=== PATIENT | male | born 1960 | race Caucasian/White ===

== ENCOUNTER 2016-04-12 11:10 | Outpatient (CLI) | payer BC, OTHER | END 2016-04-12 11:11 | disposition home or self-care (01) | DX: Z79.899 Other long term (current) drug therapy (principal) ==

== ENCOUNTER 2016-06-27 19:40 | Emergency (ER) | payer BC, OTHER | END 2016-06-27 21:15 | disposition home or self-care (01) | DX: J39.2 Other diseases of pharynx (principal); L53.9 Erythematous condition, unspecified; I10 Essential (primary) hypertension; J45.909 Unspecified asthma, uncomplicated; K21.9 Gastro-esophageal reflux disease without esophagitis ==

== ENCOUNTER 2016-07-26 18:07 | Outpatient (CLI) | payer BC, OTHER ==
[2016-07-26] MEDS ORDERED: IOPAMIDOL-300 100 ML VIAL IVP ONE (19:04)
== END 2016-07-26 18:08 | disposition home or self-care (01) ==
DX: K11.8 Other diseases of salivary glands (principal); R43.8 Other disturbances of smell and taste; L85.3 Xerosis cutis
CPT/HCPCS: 70491; Q9967

== ENCOUNTER 2016-08-30 20:32 | Emergency (ER) | payer BC, OTHER ==
[2016-08-30 20:45] VITALS: BP 162/93
--- NOTE | 2016-08-30 20:58 | ED Physician Documentation ---
PD HPI URI - Stated complaint Stated Complaint: COUGH - Chief complaint Chief Complaint: General - History obtained from History obtained from: Patient - History of Present Illness Timing - onset: Other (4 weeks of nonproductive cough not associated with fevers or shortness of breath. Tried an inhaler without relief. It is keeping him and his up at night. No recent travel.) Review of Systems Constitutional: reports: Reviewed and negative Nose: denies: Rhinorrhea / runny nose, Congestion Throat: reports: Sore throat Cardiac: denies: Chest pain / pressure, Palpitations Respiratory: reports: Cough. denies: Dyspnea, Hemoptysis, Wheezing PD PAST MEDICAL HISTORY - Past Medical History Past Medical History: Yes Cardiovascular: Hypertension Respiratory: Asthma Endocrine/Autoimmune: None GI: GERD : None HEENT: Chronic vision loss Psych: Anxiety Musculoskeletal: Osteoarthritis Derm: None - Past Surgical History Past Surgical History: Yes General: Appendectomy, Hiatal hernia repair - Present Medications Home Medications: Ambulatory Orders Medication Instructions Recorded Confirmed Olmesartan Medoxomil [Benicar] 5 mg PO DAILY 12/15/14 06/27/16 Furosemide [Lasix] 40 mg PO DAILY 03/23/15 06/27/16 Potassium Chloride [Micro-K] 10 meq PO DAILY 03/23/15 06/27/16 Ranitidine HCl [Zantac] 300 mg PO PRN PRN 03/23/15 06/27/16 Benzonatate [Tessalon] 200 mg PO TID PRN #20 capsule 08/30/16 Temazepam 15 - 30 mg PO DAILY 08/30/16 08/30/16 - Allergies Allergies/Adverse Reactions: Allergies Allergy/AdvReac Type Severity Reaction Status Date / Time codeine [Codeine] AdvReac Intermediate Anxiety Verified 08/30/16 20:45 - Social History Does the pt smoke?: No Smoking Status: Never smoker Does the pt drink ETOH?: Yes Does the pt have substance abuse?: No - Immunizations Immunizations are current?: Yes - POLST Patient has POLST: No PD ED PE NORMAL - Vitals Vital signs reviewed: Yes - General General: Alert and oriented X 3, No acute distress - HEENT HEENT: Pharynx benign - Cardiac Cardiac: RRR, No murmur - Respiratory Respiratory: No respiratory distress, Clear bilaterally - Abdomen Abdomen: Non tender - Neuro Neuro: Alert and oriented X 3, Normal speech - Psych Psych: Normal mood, Normal affect Results - Vitals Vitals: Vital Signs - 24 hr 08/30/16 20:41 Temperature 36.6 C Heart Rate 86 Respiratory 18 Rate Blood Pressure 162/93 H O2 Saturation 96 Oxygen O2 Source Room air Departure - Departure Disposition: Home, Self Care Clinical Impression: Cough Condition: Good Record reviewed to determine appropriate education?: Yes Instructions: ED Cough Chronic Cause Unkn Prescriptions: Benzonatate [Tessalon] 200 mg PO TID PRN #20 capsule PRN Reason: Cough Comments: Call your doctor to arrange a follow up appointment. Make the next available appointment. In the interim return anytime if worse or if new symptoms develop. Your blood pressure was elevated today on check in to the emergency department. This does not mean that you have hypertension, it is a common phenomenon to check into the emergency department and have elevated blood pressure. I recommend that you see your primary care physician within the week to have it rechecked when you're feeling better.
[2016-08-30] MEDS ORDERED: guaiFENesin/CODEINE 5 ML UDC PO STA (22:22)
[2016-08-30] MEDS ORDERED: guaiFENesin/CODEINE 5 ML UDC ONE (22:22)
[2016-08-30] MEDS ORDERED: BENZONATATE 100 MG CAPSULE PO STA (22:26)
[2016-08-30] MEDS ORDERED: BENZONATATE 100 MG CAPSULE PO ONE (22:27)
--- NOTE | 2016-08-30 22:49 | XRAY Preliminary Report ---
Exam: XR Chest 2 View PA/LAT IMPRESSION: No acute intrathoracic plain film abnormality. [facility] SITE ID: [id number]
--- NOTE | 2016-08-30 22:51 | XRAY Report ---
EXAM: CHEST RADIOGRAPHY EXAM DATE: 08/30/2016 10:14 PM. CLINICAL HISTORY: Cough. COMPARISON: 03/23/2015. TECHNIQUE: 2 views. FINDINGS: Lungs/Pleura: No focal opacities evident. No pleural effusion. No pneumothorax. Normal volumes. Mediastinum: Heart and mediastinal contours are unremarkable. Other: None. IMPRESSION: No acute intrathoracic plain film abnormality. [facility] Referring Provider Line: [phone] SITE ID: [id number]
[2016-09-04 10:13] LABS: B. PARAPERTUSSIS DNA NOT DETECTED (()); B. PERTUSSIS DNA NOT DETECTED (())
== END 2016-08-30 22:30 | disposition home or self-care (01) ==
LOC: ED 20:32
DX: R05 Cough (principal); I10 Essential (primary) hypertension; J45.909 Unspecified asthma, uncomplicated
CPT/HCPCS: 71020; 87801; 99283; A9270; 87798

== ENCOUNTER 2016-09-19 09:57 | Outpatient (CLI) | payer BC, OTHER | END 2016-09-19 09:58 | disposition home or self-care (01) | LOC: SC 09:57 | PROVIDERS: ATTEND Nurse Practitioner Family | DX: G47.33 Obstructive sleep apnea (adult) (pediatric) (principal) | CPT/HCPCS: 99212; 99214 ==

== ENCOUNTER 2016-11-27 08:40 | Outpatient (CLI) | payer BC, OTHER ==
[2016-11-27 14:35] LABS: BILIRUBIN,TOTAL 1.3 mg/dL (0.2-1.0); BUN - BLOOD UREA NITROGEN 25 mg/dL (6-20); CALCIUM 9.5 mg/dL (8.5-10.3); CARBON DIOXIDE - CO2 31 mmol/L (21-32); CHLORIDE 99 mmol/L (101-111); CHOL/HDL RATIO 4.9 (<5.0); CHOLESTEROL 199 mg/dL; CREATININE 1.7 mg/dL (0.6-1.2); GFR - MDRD 42 (>89); GLUCOSE 102 mg/dL (70-100); HDL CHOLESTEROL 41 mg/dL; LDL/HDL RATIO 3.4 (<3.6); POTASSIUM 3.2 mmol/L (3.5-5.0); SODIUM 139 mmol/L (135-145); TOTAL PROTEIN 6.9 g/dL (6.7-8.2); TRIGLYCERIDES 94 mg/dL; VLDL CHOLESTEROL 19 mg/dL
== END 2016-11-27 08:41 | disposition home or self-care (01) ==
LOC: LAB.WCP 08:40
PROVIDERS: ATTEND Physician Assistant Medical
DX: Z51.81 Encounter for therapeutic drug level monitoring (principal); Z12.5 Encounter for screening for malignant neoplasm of prostate; E78.5 Hyperlipidemia, unspecified
CPT/HCPCS: 36415; 80053; 80061; 84153

== ENCOUNTER 2016-12-12 08:32 | Outpatient (CLI) | payer BC, OTHER ==
[2016-12-12 14:44] LABS: CALCIUM 8.7 mg/dL (8.5-10.3); CREATININE 1.6 mg/dL (0.6-1.2); POTASSIUM 3.2 mmol/L (3.5-5.0)
== END 2016-12-12 08:33 | disposition home or self-care (01) ==
LOC: LAB.WCP 08:32
PROVIDERS: ATTEND Physician Assistant Medical
DX: Z51.81 Encounter for therapeutic drug level monitoring (principal)
CPT/HCPCS: 36415; 80048

== ENCOUNTER 2017-03-01 21:08 | Emergency (ER) | payer BC, OTHER ==
[2017-03-01] MEDS ORDERED: ONDANSETRON 4 MG/2 ML VIAL IVP STA (21:17)
[2017-03-01] MEDS ORDERED: SODIUM CHLORIDE 0.9% 1,000 ML IV ONE (21:17)
[2017-03-01] MEDS ORDERED: ONDANSETRON 4 MG/2 ML VIAL ONE (21:29)
[2017-03-01 21:37] LABS: BASOPHILS % (AUTO) 0.2 %; EOSINOPHILS # (AUTO) 0.1 10^3/uL (0.0-0.7); EOSINOPHILS % (AUTO) 0.5 %; HGB - HEMOGLOBIN 16.9 g/dL (14.0-18.0); LYMPHOCYTES # (AUTO) 0.3 10^3/uL (1.5-3.5); LYMPHOCYTES % (AUTO) 1.7 %; MEAN CORPUSCULAR HEMOGLOBIN 30.9 pg (27.0-31.0); MEAN CORPUSCULAR HGB CONC 34.5 g/dL (32.0-36.0); MEAN CORPUSCULAR VOLUME 89.7 fL (80.0-94.0); MEAN PLATELET VOLUME 7.6 fL (7.4-11.4); MONOCYTES # (AUTO) 0.4 10^3/uL (0.0-1.0); MONOCYTES % (AUTO) 2.2 %; NEUTROPHILS # (AUTO) 15.2 10^3/uL (1.5-6.6); NEUTROPHILS % (AUTO) 95.4 %; NUCLEATED RED BLOOD CELLS AUTO 0.1 /100WBC; RED BLOOD COUNT 5.46 10^6/uL (4.70-6.10); RED CELL DISTRIBUTION WIDTH 14.6 % (12.0-15.0)
[2017-03-01 21:45] LABS: ALBUMIN/GLOBULIN RATIO 1.7 (1.0-2.2); BILIRUBIN,TOTAL 1.4 mg/dL (0.2-1.0); CALCIUM 8.8 mg/dL (8.5-10.3); CREATININE 1.6 mg/dL (0.6-1.2); POTASSIUM 3.2 mmol/L (3.5-5.0); TOTAL PROTEIN 7.3 g/dL (6.7-8.2)
--- NOTE | 2017-03-01 22:14 | ED Physician Documentation ---
PD HPI NVD - Stated complaint Stated Complaint: VOMITING - Chief complaint Chief Complaint: Abd Pain - History obtained from History obtained from: Patient, Family - History of Present Illness Timing - onset: Today Timing - details: Gradual onset, Still present Associated symptoms: No: Fever, Abdominal pain Contributing factors: No: Sick contact, Bad food, Travel, Recent antibiotics Similar symptoms before: No diagnosis Recently seen: Not recently seen - Additonal information Additional information: Patient is a 56 year old male with a history of diabetes who is presenting to the emergency department for nausea and vomiting. patient states that throughout the day he has vomiting multiple times and has had a hard time keeping anything down. Patient denies any sick contacts, recent travel or change in diet. Review of Systems Constitutional: reports: Fever, Myalgias Eyes: denies: Decreased vision, Photophobia Ears: reports: Reviewed and negative Nose: reports: Rhinorrhea / runny nose, Congestion Throat: denies: Sore throat Cardiac: denies: Chest pain / pressure, Palpitations Respiratory: denies: Cough, Wheezing GI: reports: Abdominal Pain, Nausea, Vomiting. denies: Constipation, Diarrhea : reports: Reviewed and negative Skin: reports: Reviewed and negative Musculoskeletal: reports: Reviewed and negative Neurologic: denies: Generalized weakness, Focal weakness, Syncope, Altered mental status Immunocompromised: denies: Immunocompromised PD PAST MEDICAL HISTORY - Past Medical History Cardiovascular: Hypertension Respiratory: Asthma Endocrine/Autoimmune: None GI: GERD : None HEENT: Chronic vision loss Psych: Anxiety Musculoskeletal: Osteoarthritis Derm: None - Past Surgical History Past Surgical History: Yes General: Appendectomy, Hiatal hernia repair - Present Medications Home Medications: Ambulatory Orders Medication Instructions Recorded Confirmed Olmesartan Medoxomil [Benicar] 5 mg PO DAILY 12/15/14 03/01/17 Furosemide [Lasix] 40 mg PO DAILY 03/23/15 03/01/17 Potassium Chloride [Micro-K] 10 meq PO DAILY 03/23/15 03/01/17 Ranitidine HCl [Zantac] 300 mg PO PRN PRN 03/23/15 03/01/17 Benzonatate [Tessalon] 200 mg PO TID PRN #20 capsule 08/30/16 03/01/17 Temazepam 15 - 30 mg PO DAILY 08/30/16 03/01/17 Dicyclomine [Bentyl] 10 mg PO QID #20 capsule 03/01/17 Ondansetron Odt [Zofran] 4 mg TL Q6H PRN #20 tablet 03/01/17 - Allergies Allergies/Adverse Reactions: Allergies Allergy/AdvReac Type Severity Reaction Status Date / Time codeine [Codeine] AdvReac Intermediate Anxiety Verified 03/01/17 21:15 - Social History Does the pt smoke?: No Smoking Status: Never smoker Does the pt drink ETOH?: Yes Does the pt have substance abuse?: No - Immunizations Immunizations are current?: Yes - POLST Patient has POLST: No PD ED PE NORMAL - Vitals Vital signs reviewed: Yes - General General: Alert and oriented X 3, Well developed/nourished - HEENT HEENT: Atraumatic, PERRL - Neck Neck: Supple, no meningeal sign - Cardiac Cardiac: No murmur - Respiratory Respiratory: No respiratory distress, Clear bilaterally - Abdomen Abdomen: Soft - Derm Derm: Normal color, Warm and dry, No rash - Extremities Extremities: No deformity, No edema - Neuro Neuro: Alert and oriented X 3, No motor deficit, No sensory deficit, Normal speech Eye Opening: Spontaneous Motor: Obeys Commands Verbal: Oriented GCS Score: 15 - Psych Psych: Normal mood PD ED PE EXPANDED - HEENT HEENT: Dry mucous membranes - Abdomen Abdomen: Tender to palpation, Generalized/diffuse. No: Rebound, Guarding Results - Vitals Vitals: Vital Signs - 24 hr 03/01/17 03/01/17 21:12 21:53 Temperature 37.2 C 37.0 C Heart Rate 100 95 Respiratory 20 18 Rate Blood Pressure 162/63 H 126/82 H O2 Saturation 96 100 Oxygen O2 Source Room air - Labs Labs: Laboratory Tests 03/01/17 03/01/17 03/01/17 21:25 21:25 21:29 WBC 16.0 H RBC 5.46 Hgb 16.9 Hct 49.0 MCV 89.7 MCH 30.9 MCHC 34.5 RDW 14.6 Plt Count 163 MPV 7.6 Neut # 15.2 H Lymph # 0.3 L [place] # 0.4 Eos # 0.1 Baso # 0.0 Absolute Nucleated RBC 0.01 Nucleated RBC % 0.1 Sodium 138 Potassium 3.2 L Chloride 102 Carbon Dioxide 26 Anion Gap 10.0 BUN 21 H Creatinine 1.6 H Estimated GFR (MDRD) 45 L Glucose 145 H Calcium 8.8 Total Bilirubin 1.4 H AST 34 ALT 48 Alkaline Phosphatase 70 Total Protein 7.3 Albumin 4.6 Globulin 2.7 Albumin/Globulin Ratio 1.7 Lipase 28 Influenza A (Rapid) Negative Influenza B (Rapid) Negative Influenza Types A,B Ag - PD MEDICAL DECISION MAKING - ED course Complexity details: reviewed old records, reviewed results, re-evaluated patient , considered differential, d/w patient, d/w family ED course: patient was seen and examined at bedside. patient was mildly tachycardic. IV access was gained and labs were drawn. patient was treated with ns bolus and zofran. Patient responded well to therapy and was able to tolerate PO without difficulty. Patient and family were given detailed discharge and follow up instructions. patient required no further work up at this time and was stable for discharge with outpatient follow up. Departure - Departure Disposition: 01 Home, Self Care Clinical Impression: Gastroenteritis Condition: Good Instructions: ED Gastroenteritis Viral Follow-Up: Suzan Robeldo PA-C [Primary Care Provider] - Within 3 Days (if symptoms persist ) Prescriptions: Dicyclomine [Bentyl] 10 mg PO QID #20 capsule Ondansetron Odt [Zofran] 4 mg TL Q6H PRN #20 tablet PRN Reason: Nausea / Vomiting Comments: Your symptoms today are likely being caused by a viral illness. It is important that you take the zofran for nausea and stay well hydrated with water and electrolyte solutions. You should follow up with your physician if your symptoms persist for more than then few days. You may return to the emergency department at any time for new, worsening or uncontrollable symptoms.
[2017-03-01 23:05] VITALS: BP 143/88
== END 2017-03-01 23:09 | disposition home or self-care (01) ==
LOC: ED 21:08
DX: K52.9 Noninfective gastroenteritis and colitis, unspecified (principal); R00.0 Tachycardia, unspecified; E11.9 Type 2 diabetes mellitus without complications; I10 Essential (primary) hypertension; J45.909 Unspecified asthma, uncomplicated; K21.9 Gastro-esophageal reflux disease without esophagitis; M19.90 Unspecified osteoarthritis, unspecified site
CPT/HCPCS: 36415; 80053; 83690; 85025; 87275; 87276; 96361; 96374; 99283; 99284

== ENCOUNTER 2017-03-11 09:55 | Outpatient (CLI) | payer BC, OTHER ==
[2017-03-11 13:01] LABS: BASOPHILS # (AUTO) 0.1 10^3/uL (0.0-0.1); BASOPHILS % (AUTO) 0.6 %; EOSINOPHILS # (AUTO) 0.2 10^3/uL (0.0-0.7); EOSINOPHILS % (AUTO) 1.6 %; HCT - HEMATOCRIT 43.9 % (42.0-52.0); HGB - HEMOGLOBIN 15.6 g/dL (14.0-18.0); LYMPHOCYTES # (AUTO) 1.6 10^3/uL (1.5-3.5); LYMPHOCYTES % (AUTO) 15.6 %; MEAN CORPUSCULAR HEMOGLOBIN 31.5 pg (27.0-31.0); MEAN CORPUSCULAR HGB CONC 35.5 g/dL (32.0-36.0); MEAN CORPUSCULAR VOLUME 88.7 fL (80.0-94.0); MEAN PLATELET VOLUME 7.8 fL (7.4-11.4); MONOCYTES # (AUTO) 0.7 10^3/uL (0.0-1.0); MONOCYTES % (AUTO) 6.3 %; NEUTROPHILS % (AUTO) 75.9 %; NUCLEATED RED BLOOD CELLS AUTO 0.2 /100WBC; RED BLOOD COUNT 4.94 10^6/uL (4.70-6.10); RED CELL DISTRIBUTION WIDTH 14.2 % (12.0-15.0); UNCORRECTED WHITE BLOOD COUNT 10.5 x10^3/uL; WHITE BLOOD COUNT 10.5 x10^3/uL (4.8-10.8)
[2017-03-11 13:31] LABS: ALBUMIN/GLOBULIN RATIO 1.7 (1.0-2.2); BILIRUBIN,TOTAL 0.8 mg/dL (0.2-1.0); BUN - BLOOD UREA NITROGEN 20 mg/dL (6-20); CALCIUM 8.9 mg/dL (8.5-10.3); CARBON DIOXIDE - CO2 27 mmol/L (21-32); CHLORIDE 101 mmol/L (101-111); CHOL/HDL RATIO 4.2 (<5.0); CHOLESTEROL 165 mg/dL; CREATININE 1.6 mg/dL (0.6-1.2); GFR - MDRD 45 (>89); GLUCOSE 111 mg/dL (70-100); HDL CHOLESTEROL 39 mg/dL; LDL/HDL RATIO 2.7 (<3.6); MAGNESIUM 2.1 mg/dL (1.7-2.8); POTASSIUM 3.6 mmol/L (3.5-5.0); SODIUM 138 mmol/L (135-145); TOTAL PROTEIN 7.1 g/dL (6.7-8.2); TRIGLYCERIDES 103 mg/dL; URIC ACID 9.7 mg/dL (2.6-7.2); VLDL CHOLESTEROL 21 mg/dL
== END 2017-03-11 09:56 | disposition home or self-care (01) ==
LOC: LAB.WCP 09:55
PROVIDERS: ATTEND Physician Assistant Medical
DX: Z51.81 Encounter for therapeutic drug level monitoring (principal); E78.5 Hyperlipidemia, unspecified; E04.1 Nontoxic single thyroid nodule; I10 Essential (primary) hypertension; M25.50 Pain in unspecified joint; D72.829 Elevated white blood cell count, unspecified
CPT/HCPCS: 36415; 80053; 80061; 83735; 84443; 84550; 85025; 85651

== ENCOUNTER 2017-05-14 09:00 | Outpatient (CLI) | payer OTHER ==
[2017-05-14 13:04] LABS: CALCIUM 9.4 mg/dL (8.5-10.3); CREATININE 1.5 mg/dL (0.6-1.2); URIC ACID 7.5 mg/dL (2.6-7.2)
== END 2017-05-14 09:01 ==
LOC: LAB.WCP 09:00
PROVIDERS: ATTEND Physician Assistant Medical
DX: E79.0 Hyperuricemia without signs of inflammatory arthritis and tophaceous disease (principal); Z51.81 Encounter for therapeutic drug level monitoring; Z79.899 Other long term (current) drug therapy
CPT/HCPCS: 36415; 80048; 84550

== ENCOUNTER 2017-05-17 13:10 | Inpatient (IN) | payer OTHER ==
[2017-05-17] MEDS ORDERED: ACETAMINOPHEN 325 MG TABLET PO STA (13:14)
[2017-05-17] MEDS ORDERED: SODIUM CHLORIDE 0.9% 1,000 ML IV ONE (13:14)
--- NOTE | 2017-05-17 13:15 | ED Physician Documentation ---
History of Present Illness - Stated complaint Stated Complaint: CHOKING - Chief complaint Chief Complaint: Resp - History obtained from History obtained from: Patient - History of Present Illness Timing: Today (Starting in the last few hours he has had severe uncontrollable shaking associated with coughing and feeling like he is choking on his own mucus. Associated with shortness of breath but no pain anywhere, specifically no chest or abdominal pain. No recent illness or sick contacts.) Review of Systems Constitutional: reports: Chills, Fatigue, Sweats Nose: denies: Rhinorrhea / runny nose Respiratory: reports: Dyspnea, Cough GI: denies: Abdominal Pain, Vomiting, Diarrhea PD PAST MEDICAL HISTORY - Past Medical History Cardiovascular: Hypertension Respiratory: Asthma Endocrine/Autoimmune: None GI: GERD : None HEENT: Chronic vision loss Psych: Anxiety Musculoskeletal: Osteoarthritis Derm: None - Past Surgical History Past Surgical History: Yes General: Appendectomy, Hiatal hernia repair - Present Medications Home Medications: Ambulatory Orders Medication Instructions Recorded Confirmed Olmesartan Medoxomil [Benicar] 5 mg PO DAILY 12/15/14 03/01/17 Furosemide [Lasix] 40 mg PO DAILY 03/23/15 03/01/17 Potassium Chloride [Micro-K] 10 meq PO DAILY 03/23/15 03/01/17 Ranitidine HCl [Zantac] 300 mg PO PRN PRN 03/23/15 03/01/17 Benzonatate [Tessalon] 200 mg PO TID PRN #20 capsule 08/30/16 03/01/17 Temazepam 15 - 30 mg PO DAILY 08/30/16 03/01/17 Dicyclomine [Bentyl] 10 mg PO QID #20 capsule 03/01/17 Ondansetron Odt [Zofran] 4 mg TL Q6H PRN #20 tablet 03/01/17 - Allergies Allergies/Adverse Reactions: Allergies Allergy/AdvReac Type Severity Reaction Status Date / Time codeine [Codeine] AdvReac Intermediate Anxiety Verified 05/17/17 13:14 - Social History Does the pt smoke?: No Smoking Status: Never smoker Does the pt drink ETOH?: Yes Does the pt have substance abuse?: No - Immunizations Immunizations are current?: Yes - POLST Patient has POLST: No PD ED PE NORMAL - Vitals Vital signs reviewed: Yes - General General: Alert and oriented X 3, Other (Actively Rigoring) - HEENT HEENT: PERRL, EOMI, Pharynx benign - Neck Neck: Supple, no meningeal sign, No bony TTP - Cardiac Cardiac: No murmur, Other (Tachycardic) - Respiratory Respiratory: Other (Tachypneic, diminished throughout but no focal findings) - Abdomen Abdomen: Soft, Non tender - Back Back: No CVA TTP, No spinal TTP - Derm Derm: Normal color, Warm and dry - Extremities Extremities: No edema, No calf tenderness / cord - Neuro Neuro: Alert and oriented X 3, Normal speech Results - Vitals Vitals: Vital Signs - 24 hr 05/17/17 05/17/17 13:11 14:16 Temperature 37.8 C H 37.0 C Heart Rate 128 H 126 H Respiratory 28 H 24 Rate Blood Pressure 161/113 H 137/101 H O2 Saturation 100 96 Oxygen O2 Source Room air - EKG (time done) 1316 Rate: Rate (enter#) (120) Rhythm: Sinus tachycardia, LAE Intervals: Normal PA QRS: LVH Ischemia: Non specific changes. No: ST elevation c/w ischemia Computer interpretation: Agree with computer - Labs Labs: Laboratory Tests 05/17/17 05/17/17 05/17/17 13:20 13:20 13:20 WBC 25.0 H RBC 5.48 Hgb 17.2 Hct 48.4 MCV 88.3 MCH 31.4 H MCHC 35.6 RDW 14.5 Plt Count 217 MPV 7.7 Neut # 22.5 H Lymph # 1.3 L [place] # 0.9 Eos # 0.1 Baso # 0.1 Absolute Nucleated RBC 0.02 Nucleated RBC % 0.1 Manual Slide Review Indicated RBC Morph Micro Appear 1+ POLYCHROMASIA PT 12.2 INR 1.1 Sodium 141 Potassium 2.8 L Chloride 96 L Carbon Dioxide 28 Anion Gap 17.0 H BUN 28 H Creatinine 1.9 H Estimated GFR (MDRD) 37 L Glucose 95 Lactic Acid Calcium 9.4 Total Bilirubin 2.0 H AST 42 ALT 46 Alkaline Phosphatase 73 Troponin I Total Protein 7.7 Albumin 5.0 Globulin 2.7 Albumin/Globulin Ratio 1.9 Lipase 20 L Urine Color Urine Clarity Urine pH Ur Specific [place] Urine Protein Urine Glucose (UA) Urine Ketones Urine Occult Blood Urine Nitrite Urine Bilirubin Urine Urobilinogen Ur Leukocyte Esterase Ur Microscopic Review Urine Culture Comments Influenza A (Rapid) Influenza B (Rapid) Influenza Types A,B Ag 05/17/17 05/17/17 05/17/17 13:20 13:20 13:48 WBC RBC Hgb Hct MCV MCH MCHC RDW Plt Count MPV Neut # Lymph # [place] # Eos # Baso # Absolute Nucleated RBC Nucleated RBC % Manual Slide Review RBC Morph Micro Appear PT INR Sodium Potassium Chloride Carbon Dioxide Anion Gap BUN Creatinine Estimated GFR (MDRD) Glucose Lactic Acid 1.8 Calcium Total Bilirubin AST ALT Alkaline Phosphatase Troponin I < 0.04 Total Protein Albumin Globulin Albumin/Globulin Ratio Lipase Urine Color Urine Clarity Urine pH Ur Specific [place] Urine Protein Urine Glucose (UA) Urine Ketones Urine Occult Blood Urine Nitrite Urine Bilirubin Urine Urobilinogen Ur Leukocyte Esterase Ur Microscopic Review Urine Culture Comments Influenza A (Rapid) Negative Influenza B (Rapid) Negative Influenza Types A,B Ag - 05/17/17 14:10 WBC RBC Hgb Hct MCV MCH MCHC RDW Plt Count MPV Neut # Lymph # [place] # Eos # Baso # Absolute Nucleated RBC Nucleated RBC % Manual Slide Review RBC Morph Micro Appear PT INR Sodium Potassium Chloride Carbon Dioxide Anion Gap BUN Creatinine Estimated GFR (MDRD) Glucose Lactic Acid Calcium Total Bilirubin AST ALT Alkaline Phosphatase Troponin I Total Protein Albumin Globulin Albumin/Globulin Ratio Lipase Urine Color YELLOW Urine Clarity CLEAR Urine pH 6.0 Ur Specific [place] 1.020 Urine Protein 100 H Urine Glucose (UA) NEGATIVE Urine Ketones NEGATIVE Urine Occult Blood TRACE-LYSE Urine Nitrite NEGATIVE Urine Bilirubin NEGATIVE Urine Urobilinogen 0.2 (NORMAL) Ur Leukocyte Esterase NEGATIVE Ur Microscopic Review INDICATED Urine Culture Comments Not Reportable Influenza A (Rapid) Influenza B (Rapid) Influenza Types A,B Ag - Rads (name of study) 2v chest Radiology: EMP read contemporaneously (faint RML density) PD MEDICAL DECISION MAKING - ED course ED course: 57-year-old gentleman presents with very acute Reiger's, fever, tachycardia but no hypotension. The history is most consistent with pneumonia, there is an early right middle lobe infiltrate on chest x-ray. He was cultured up, given Rocephin and Levaquin given underlying lung disease. Spoke with Dr Decker for admit at 1435 Departure - Departure Disposition: 66 [facility] DC/Xfer Clinical Impression: Pneumonia Qualifiers: Pneumonia type: due to unspecified organism Laterality: right Lung location: middle lobe of lung Qualified Code(s): J18.1 - Lobar pneumonia, unspecified organism Sepsis Qualifiers: Sepsis type: sepsis due to unspecified organism Qualified Code(s): A41.9 - Sepsis, unspecified organism Condition: Serious
[2017-05-17 13:34] LABS: BASOPHILS # (AUTO) 0.1 10^3/uL (0.0-0.1); BASOPHILS % (AUTO) 0.5 %; EOSINOPHILS # (AUTO) 0.1 10^3/uL (0.0-0.7); EOSINOPHILS % (AUTO) 0.5 %; HGB - HEMOGLOBIN 17.2 g/dL (14.0-18.0); LYMPHOCYTES # (AUTO) 1.3 10^3/uL (1.5-3.5); LYMPHOCYTES % (AUTO) 5.3 %; MEAN CORPUSCULAR HEMOGLOBIN 31.4 pg (27.0-31.0); MEAN CORPUSCULAR HGB CONC 35.6 g/dL (32.0-36.0); MEAN CORPUSCULAR VOLUME 88.3 fL (80.0-94.0); MEAN PLATELET VOLUME 7.7 fL (7.4-11.4); MONOCYTES # (AUTO) 0.9 10^3/uL (0.0-1.0); MONOCYTES % (AUTO) 3.6 %; NEUTROPHILS # (AUTO) 22.5 10^3/uL (1.5-6.6); NEUTROPHILS % (AUTO) 90.1 %; PLT - PLATELET COUNT 217 10^3/uL (130-450); RED BLOOD COUNT 5.48 10^6/uL (4.70-6.10); RED CELL DISTRIBUTION WIDTH 14.5 % (12.0-15.0)
[2017-05-17 13:38] LABS: INR 1.1 (0.8-1.2); PT - PROTHROMBIN TIME 12.2 secs (9.9-12.6)
[2017-05-17 13:46] LABS: ALBUMIN/GLOBULIN RATIO 1.9 (1.0-2.2); CALCIUM 9.4 mg/dL (8.5-10.3); CREATININE 1.9 mg/dL (0.6-1.2); TOTAL PROTEIN 7.7 g/dL (6.7-8.2)
[2017-05-17] MEDS ORDERED: POTASSIUM CHLOR 10 MEQ/100 ML 10 MEQ/100 ML BAG IV ONE (13:52)
[2017-05-17] MEDS ORDERED: cefTRIAXone 2 GM in SODIUM CHLORIDE 0.9% MINIBAG 100 ML IV STA (14:21)
[2017-05-17] MEDS ORDERED: levoFLOXacin 750 MG/150 ML 750 MG/150 ML BAG IV ONE (14:21)
[2017-05-17] MEDS ORDERED: LACTATED RINGERS 1,000 ML IV STA (14:22)
--- NOTE | 2017-05-17 14:24 | XRAY Report ---
EXAM: CHEST RADIOGRAPHY EXAM DATE: 05/17/2017 02:08 PM. CLINICAL HISTORY: Cough, rigors. COMPARISON: Chest x-ray 08/30/2016. TECHNIQUE: 2 views. FINDINGS: Lungs/Pleura: No pleural effusion or pneumothorax. Faint linear areas right midlung on the PA view wh ich is not well-seen on the lateral view. Mediastinum: Heart and mediastinal contours are unremarkable. Other: None. IMPRESSION: Faint right midlung densities on the PA view, probably diskoid atelectasis. [facility] Referring Provider Line: [phone] SITE ID: [id number]
[2017-05-17 14:31] LABS: BILIRUBIN,URINE NEGATIVE (NEGATIVE); GLUCOSE, URINE (UA) NEGATIVE (NEGATIVE); KETONES,URINE (UA) NEGATIVE (NEGATIVE); LEUKOCYTE ESTERASE, URINE NEGATIVE (NEGATIVE); NITRITE,URINE NEGATIVE (NEGATIVE); OCCULT BLOOD,URINE TRACE-LYSE (NEGATIVE); PROTEIN,URINE 100 mg/dL (NEGATIVE); UROBILINOGEN,URINE 0.2 (NORMAL) E.U./dL (NORMAL)
[2017-05-17 14:33] LABS: CLARITY,URINE CLEAR (CLEAR)
[2017-05-17 14:48] LABS: RBC,URINE 0-5 /HPF (0-5)
[2017-05-17 14:49] LABS: BACTERIA,URINE None Seen /HPF (None Seen); CASTS, URINE 3-5 Hyaline Casts /LPF; SQUAMOUS EPITHELIAL CELL,UR NONE SEEN (<= Few)
[2017-05-17] MEDS ORDERED: HYDROcod/ACETAM 5/325 MG TABLET PO PRN (14:52)
[2017-05-17] MEDS ORDERED: ACETAMINOPHEN 325 MG TABLET PO PRN (14:52)
[2017-05-17] MEDS ORDERED: TEMAZEPAM 15 MG CAPSULE PO PRN (14:52)
[2017-05-17] MEDS ORDERED: ONDANSETRON 4 MG/2 ML VIAL IVP PRN (14:52)
--- NOTE | 2017-05-17 16:25 | HISTORY & PHYSICAL EXAMINATION ---
Chief Complaint - Chief Complaint Chief Complaint: shortness of breath, chills, sweats, fatigue History of Present Illness - Admitted From Admitted From:: ED - History Obtained From Records Reviewed: yes History obtained from: chart review, patient Exam Limitations: none - History of Present Illness HPI Comment/Other: Etienne Aguiar is a morbidly obese 57-year old white male with a past medical history of obesity, obstructive sleep apnea, chronic CPAP use, pneumonia, bilateral leg edema, asthma, hypertension, GERD, chronic vision loss, chronic hearing loss, anxiety, osteoarthritis, appendectomy and hiatal hernia repair. He was driven to the ED today by his after they had been to the [employer] this morning. He participated at first, but soon had to go to the car to rest as he was "just too tired out and freezing". When his was finished in the [employer], she came back to the car and didn't think he look well, so they came straight to the ED. Once in the ED imaging showed a possible right mid-lung pneumonia described as faint linear areas, an elevated WBC count, temp max of 38.0, tachycardic with a heart rate in the 130's, hypertensive with a blood pressure of 161/113, and profound rigors and chills. Labratory testing revealed hypokalemia with a potassium low at 2.8, BUN and Creatinine elevated at 28 and 1.9, and an elevated bilirubin. He has had associated symptoms such as anorexia, body aches, difficulty walking, increased bilateral lower leg edema , and a dry cough. Patient denies chest pain or pressure, abdominal pain, sinus pressure or ear pain, nausea or vomiting or insomnia. Patient will be admitted to inpatient for further treatment of pneumonia with IVFs, IV antibiotics and symptom control. History - Past Medical History Cardiovascular: reports: Hypertension Respiratory: reports: Asthma, Sleep apnea, CPAP use Neuro: reports: None. denies: CVA, TIA Endocrine/Autoimmune: reports: None. denies: Type 1 diabetes, Type 2 diabetes, HyPERthyroidism GI: reports: GERD, Hiatal hernia (surgical repair) [employer]: reports: None : reports: Nocturia HEENT: reports: Chronic vision loss, Chronic sinusitis Psych: reports: Anxiety, Eating disorder Musculoskeletal: reports: Osteoarthritis Derm: reports: None MRSA Hx?: No - Past Surgical History General: reports: Appendectomy, Hiatal hernia repair - Family & Social History Family History: Mother: Alive and Well, Alzheimer's Disease, Father: Alive and Well, Sister: Alive and Well Family History Comment/Other: Patient's biological family are all alive and well , except his mother has dementia, and his father has osteoarthritis with multiple surgeries in knees and hips. No family history of DM, or cancers. Living arrangement: At home Living Situation: With spouse/s.o. 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 His stays home. He denies tobacco, alcohol, or illicit drug use. He wishes to be a full code. - Substance History Use: Uses substance without health or social issues: NONE Abuse: Recurrent use of substance despite neg consequences: NONE Dependence: Experiences withdrawal or developed tolerances: NONE - POLST Patient has POLST: No POLST Status: Full Code Meds/Allgy - Home Medications Home Medications: Ambulatory Orders Medication Instructions Recorded Confirmed Furosemide [Lasix] 60 mg PO DAILY 03/23/15 05/17/17 Potassium Chloride [Micro-K] 20 meq PO DAILY 03/23/15 05/17/17 Ranitidine HCl [Zantac] 300 mg PO DAILY 03/23/15 05/17/17 Temazepam 15 - 30 mg PO QPM PRN 08/30/16 05/17/17 Fluticasone/Salmeterol [Advair 1 puffs INH BID 05/17/17 05/17/17 250-50 Diskus] Montelukast [Singulair] 10 mg PO QPM 05/17/17 05/17/17 amLODIPine [Norvasc] 5 mg PO DAILY 05/17/17 05/17/17 cloNIDine HCl [Clonidine HCl] 0.1 mg PO BID 05/17/17 05/17/17 hydroCHLOROthiazide 25 mg PO DAILY 05/17/17 05/17/17 [Hydrochlorothiazide] - Allergies Allergies/Adverse Reactions: Allergies Allergy/AdvReac Type Severity Reaction Status Date / Time codeine [Codeine] AdvReac Intermediate Anxiety Verified 05/17/17 13:14 Review of Systems - Constitutional Constitutional: reports: Fatigue, Fever, Chills, Malaise, Weakness, Poor appetite, Diaphoresis, Night sweats - Eyes Eyes: reports: Irritation, Blurred vision, Vision loss, Corrective lenses - Ears, Nose & Throat Ears, Nose & Throat: reports: Ear pain, Hearing loss, Nasal discharge, Nasal congestion, Postnasal drainage, Dental decay - Cardiovascular Cariovascular: reports: Edema, Exertional dyspnea, Decr. exercise tolerance, Orthopnea - Respiratory Respiratory: reports: Cough, Wheezing, Orthopnea, SOB at rest, SOB with exertion - Gastrointestinal Gastrointestinal: reports: Reflux/heartburn, Poor appetite. denies: Abdominal pain, Abdominal distention, Constipation, Diarrhea, Bloody stools - Genitourinary Genitourinary: reports: Nocturia. denies: Dysuria, Frequency, Urgency, Hematuria - Musculoskeletal Musculoskeletal: reports: Muscle aches, Muscle weakness, Joint swelling. denies : Muscle pain, Back pain - Integumentary Integumentary: reports: Dryness. denies: Rash, Pruritis, Lesions - Neurological Neurological: reports: General weakness. denies: Focal weakness, Headache, Dizziness, Seizures - Psychiatric Psychiatric: denies: Depression, Suicidal - Endocrine Endocrine: denies: Polyuria, Polydypsia - Hematologic/Lymphatic Hematologic/Lymphatic: denies: Anemia, Bruising, Petechiae - All Other Systems All Other Systems: reports: Reviewed and negative Exam - Vital Signs Reviewed Vital Signs: Yes Vital Signs: Vital Signs x48h Temp Pulse Resp BP Pulse Ox 05/17/17 16:00 38.0 C H 113 H 22 140/92 H 97 - Physical Exam General Appearance: positive: Alert, Moderate distress, Anxious Eyes Bilateral: positive: PERRL, Other (bilateral lid inflammation) ENT: positive: Pharyngeal erythema, Dry mucous membranes Neck: positive: Thyroid nml, No JVD, Lymphadenopathy (R), Lymphadenopathy (L) Respiratory: positive: Chest non-tender, No respiratory distress, Wheezes, Other (mild bilateral lobe crackles.) Cardiovascular: positive: Regular rate & rhythm, Tachycardia, Systolic murmur, Decreased pulse(s) Peripheral Pulses: positive: 1+, 0 (faint) Abdomen: positive: Non-tender, Abnml bowel sounds, Other (obese, firm) Back: positive: Nml inspection Skin: positive: No rash, Warm, Diaphoresis Extremities: positive: Non-tender, Pedal edema (gross, pitting edema) Neurologic/Psychiatric: positive: Oriented x3, CN's nml (2-12), Motor nml, Sensation nml, Depressed mood/affect Reflexes: Bicep (R): 3+, Bicep (L): 3+ Conclusion/Plan - Problem List (1) Fever Conclusion/Plan: Patient has had a temp max of 38.0 in the ED, during admission exam, patient felt as if another one was coming on. He first noticed chills, sweats ~48 hours ago at home. When the patient arrived in the ED, rigors were also noted. Plan: Treat with tylenol, IVFs. (2) Pneumonia Conclusion/Plan: Imaging obtained in the ED showed a possible right mid-lung pneumonia described as faint linear areas, an elevated WBC count, temp max of 38.0, tachycardic with a heart rate in the 130's, hypertensive with a blood pressure of 161/113, and profound rigors and chills. Patient admits to having a history of pneumonia and can remember at least 3 other times in his life that he has had this, although this time seems to be the worst. Plan: Treat with IVFs given his AUGUSTINE, IV antibiotics, blood cultures pending, and close monitoring. Qualifiers: Pneumonia type: due to unspecified organism Laterality: right Lung location: middle lobe of lung Qualified Code(s): J18.1 - Lobar pneumonia, unspecified organism (3) Cough Conclusion/Plan: Patient claims to have a dry, non-productive cough and at times brings up clear fluid. He states that his cough goes away when he wears his CPAP. Plan: Treat with cough medications, use supplemental oxygen. (4) Dyspnea Conclusion/Plan: Patient has profound excersice intolerance and becomes easily short of breath with position changes. Plan: Treat with home CPAP and supplemental O2, IV antibiotics for PNA. Echocardiogram in AM. Qualifiers: Dyspnea type: shortness of breath Qualified Code(s): R06.02 - Shortness of breath - Lab Results Lab results reviewed: Yes Fish Bones: 05/17/17 13:20 05/17/17 13:20 - Diagnostic Imaging Results Diagnostic Imaging Results: positive: Prelim report reviewed, Final report reviewed - EKG Results EKG Interpreted Independently: Yes EKG Comparison: No prior EKG Core Measures - Anticipated LOS I expect patient to be DC'd or transferred within 96 hours.: Yes - DVT/VTE - Prophylaxis VTE/DVT Device ordered at admit?: Yes VTE/DVT Prophylaxis med ordered at admit?: Yes - Stroke - Rehab Assessment Rehab services assessment to be ordered?: No Not Ordered - Medical Reason: Contraindicated - AMI - Statin at Admit Aspirin Prescribed on Admit: Yes
[2017-05-17] MEDS ORDERED: diphenhydrAMINE 25 MG CAPSULE PO PRN (16:45)
[2017-05-17] MEDS: SODIUM CHLORIDE FLUSH 0.9% 10 ML SYRINGE IVP SCH ×2 (17:01→22:21)
[2017-05-17 17:57] LABS: CHOL/HDL RATIO 4.3 (<5.0); CHOLESTEROL 147 mg/dL; HDL CHOLESTEROL 34 mg/dL; LDL CHOLESTEROL,CALCULATED 90 mg/dL; LDL/HDL RATIO 2.6 (<3.6); VLDL CHOLESTEROL 23 mg/dL
[2017-05-17 17:58] LABS: HB2 TOTAL 18.2 g/dL; HEMOGLOBIN A1C 0.56 g/dL
[2017-05-17] MEDS ORDERED: guaiFENesin/DEXTROMETHORPHAN 10 ML UDC PO PRN (18:25)
[2017-05-17 18:27] LABS: MUDS CUTOFF CONCENTRATIONS CUTOFF CONC BELOW:
[2017-05-17 18:32] LABS: AMPHETAMINE SCREEN,URINE NEGATIVE (NEGATIVE); BENZODIAZEPINES SCREEN, URINE POSITIVE (NEGATIVE); COCAINE SCREEN URINE NEGATIVE (NEGATIVE); METHADONE SCREEN, URINE NEGATIVE (NEGATIVE); METHAMPHETAMINES SCREEN, URINE NEGATIVE (NEGATIVE); OPIATE SCREEN, URINE NEGATIVE (NEGATIVE); OXYCODONE SCREEN, URINE NEGATIVE (NEGATIVE); PROPOXYPHENE SCREEN, URINE NEGATIVE (NEGATIVE); TRICYCLIC ANTIDEPRESSANT,URINE NEGATIVE (NEGATIVE)
[2017-05-17] MEDS: SODIUM CHLORIDE FLUSH 0.9% 10 ML SYRINGE IVP PRN ×2 (18:38→22:21)
[2017-05-17] MEDS ORDERED: hydrALAZINE INJ 20 MG/ML VIAL IVP PRN ×2 (21:52→22:42)
[2017-05-17] MEDS ORDERED: FLUTICASONE HFA 220 MCG INHALER INH SCH ×2 (22:00→22:37)
[2017-05-17] MEDS ORDERED: CLINDAMYCIN INJ 300 MG in SODIUM CHLORIDE 0.9% 50 ML IV SCH (22:00)
[2017-05-17] MEDS: NS W/20 MEQ KCL 1,000 ML IV SCH (22:20)
[2017-05-17] MEDS: ENOXAPARIN 40 MG/0.4 ML SYRINGE SUBQ SCH (22:21)
[2017-05-17] MEDS: methylPREDNISolone SUCCINATE 40 MG/ML VIAL IVP SCH (22:21)
[2017-05-18] MEDS ORDERED: BENZOCAINE/MENTHOL LOZENGE MM PRN (03:35)
[2017-05-18] MEDS ORDERED: CLINDAMYCIN INJ 300 MG in SODIUM CHLORIDE 0.9% 50 ML IV SCH (04:00)
[2017-05-18 05:28] LABS: HGB - HEMOGLOBIN 14.8 g/dL (14.0-18.0); LYMPHOCYTES % (AUTO) 4.3 %; MEAN CORPUSCULAR HEMOGLOBIN 30.3 pg (27.0-31.0); MEAN CORPUSCULAR VOLUME 89.2 fL (80.0-94.0); MONOCYTES % (AUTO) 1.3 %; NEUTROPHILS % (AUTO) 93.4 %; PLT - PLATELET COUNT 165 10^3/uL (130-450); RED BLOOD COUNT 4.88 10^6/uL (4.70-6.10); RED CELL DISTRIBUTION WIDTH 14.2 % (12.0-15.0); WHITE BLOOD COUNT 30.5 x10^3/uL (4.8-10.8)
[2017-05-18 05:38] LABS: ALBUMIN 4.1 g/dL (3.2-5.5); ALBUMIN/GLOBULIN RATIO 1.6 (1.0-2.2); BILIRUBIN,TOTAL 1.1 mg/dL (0.2-1.0); CALCIUM 8.5 mg/dL (8.5-10.3); CREATININE 1.8 mg/dL (0.6-1.2); TOTAL PROTEIN 6.6 g/dL (6.7-8.2)
[2017-05-18 05:39] LABS: ABNORMAL LYMPHS % (MANUAL) 0 %
[2017-05-18 06:36] LABS: BAND NEUTROPHILS % (MANUAL) 9 %; LYMPHOCYTES # (MANUAL) 0.3 10^3/uL (1.5-3.5); LYMPHOCYTES % (MANUAL) 1 %; MONOCYTES # (MANUAL) 1.5 10^3/uL (0.0-1.0); NEUTROPHILS # (MANUAL) 28.7 10^3/uL (1.5-6.6); NEUTROPHILS % (MANUAL) 85 %
[2017-05-18 06:40] LABS: RBC MORPHOLOGY (MULTIPLE) NORMAL APPEARANCE (NORMAL)
[2017-05-18 06:41] LABS: DIFFERENTIAL COMMENT MANUAL DIFFERENTIAL; PLATELET ESTIMATE, MANUAL NORMAL (130-450,000) (NORMAL); PLATELET MORPHOLOGY 1+ LARGE PLATELETS (NORMAL)
[2017-05-18] MEDS: PANTOPRAZOLE 40 MG TABLET PO SCH (06:56)
[2017-05-18] MEDS: methylPREDNISolone SUCCINATE 40 MG/ML VIAL IVP SCH ×3 (06:57→21:41)
[2017-05-18] MEDS: SODIUM CHLORIDE FLUSH 0.9% 10 ML SYRINGE IVP PRN ×3 (06:58→21:41)
--- NOTE | 2017-05-18 08:06 | PROVIDER PROGRESS NOTE ---
Subjective - Prog Note Date Prog Note Date: 05/18/17 Prog Note Time: 08:01 - Subjective Pt reports feeling: No change Subjective: Etienne feels that he is improved since admission, but is not sure if he is getting a fever again. He denies SOB, chest pain, N/V or a new cough. He believes that his cough is slightly less than 24 hours ago. Current Medications - Current Medications Current Medications: Active Medications Acetaminophen (Tylenol) 650 mg PO Q4HR PRN PRN Reason: Pain 1 to 4 Acetaminophen/Hydrocodone Bitart ([place] 5/325) 1 tab PO Q4HR PRN PRN Reason: Pain 5 to 7 Last Admin: 05/17/17 18:18 Dose: 1 tab Albuterol/Ipratropium (Duoneb) 3 ml INH Q4HR PRN PRN Reason: Wheezing Last Admin: 05/18/17 09:30 Dose: 3 ml Amlodipine Besylate (Norvasc) 5 mg PO DAILY [facility] Last Admin: 05/18/17 08:58 Dose: 5 mg Budesonide (Pulmicort) 0.5 mg INH RTBID [facility] Last Admin: 05/18/17 09:30 Dose: 0.5 mg Diphenhydramine HCl (Benadryl) 25 mg PO Q4HR PRN PRN Reason: Allergy Symptoms Enoxaparin Sodium (Lovenox) 40 mg SUBQ BID [facility] Last Admin: 05/18/17 08:58 Dose: 40 mg Famotidine (Pepcid) 20 mg PO DAILY [facility] Last Admin: 05/18/17 08:58 Dose: 20 mg Guaifenesin (Robitussin Dm) 10 ml PO Q6HR PRN PRN Reason: Cough Last Admin: 05/17/17 19:56 Dose: 10 ml Hydralazine HCl (Apresoline Inj) 10 mg IVP TID PRN PRN Reason: SBP>160 Potassium Chloride/Sodium Chloride (Normal Saline 0.9% W/20 Meq Kcl) 1,000 mls @ 83.333 mls/hr IV .Q12H [facility] Last Admin: 05/18/17 11:12 Dose: 83.333 mls/hr Clindamycin Phosphate (Cleocin 600 Mg/50 Ml) 50 mls @ 100 mls/hr IV Q6H [facility] Last Infusion: 05/18/17 10:58 Dose: Infused Methylprednisolone (Solu-Medrol (40mg Vial)) 40 mg IVP TID [facility] Last Admin: 05/18/17 13:51 Dose: 40 mg Montelukast Sodium (Singulair) 10 mg PO QPM [facility] Ondansetron HCl (Zofran Inj) 4 mg IVP Q6HR PRN PRN Reason: Nausea / Vomiting Last Admin: 05/17/17 16:58 Dose: 4 mg Pantoprazole Sodium (Protonix) 40 mg PO QDAC [facility] Last Admin: 05/18/17 06:56 Dose: 40 mg Polyethylene Glycol (Miralax) 17 gm PO DAILY [facility] Last Admin: 05/18/17 08:58 Dose: 17 gm Saccharomyces Boulardii (Florastor) 250 mg PO BIDWM [facility] Last Admin: 05/18/17 12:10 Dose: 250 mg Sodium Chloride (Normal Saline Flush 0.9%) 10 ml IVP PRN PRN PRN Reason: NEEDED PER PROVIDER ORDERS Last Admin: 05/18/17 13:55 Dose: 20 ml Sodium Chloride (Normal Saline Flush 0.9%) 10 ml IVP 0100,0900,1700 [facility] Last Admin: 05/18/17 09:00 Dose: 10 ml Temazepam (Restoril) 15 mg PO QPM PRN PRN Reason: Insomnia Throat Lozenges (Cepacol) 1 lozenge MM Q2HR PRN PRN Reason: Throat pain Last Admin: 05/18/17 03:56 Dose: 1 lozenge Furosemide [Lasix] 60 mg PO DAILY 03/23/15 Potassium Chloride [Micro-K] 20 meq PO DAILY 03/23/15 Ranitidine HCl [Zantac] 300 mg PO DAILY 03/23/15 Temazepam 15 - 30 mg PO QPM PRN 08/30/16 Fluticasone/Salmeterol [Advair 250-50 Diskus] 1 puffs INH BID 05/17/17 Montelukast [Singulair] 10 mg PO QPM 05/17/17 amLODIPine [Norvasc] 5 mg PO DAILY 05/17/17 cloNIDine HCl [Clonidine HCl] 0.1 mg PO BID 05/17/17 hydroCHLOROthiazide [Hydrochlorothiazide] 25 mg PO DAILY 05/17/17 Objective - Vital Signs/Intake & Output Reviewed Vital Signs: Yes Intake & Output: Intake & Output 05/15/17 05/16/17 05/17/17 05/18/17 23:59 23:59 23:59 23:59 Intake Total 2502 1106.164 Output Total 200 600 Balance 2302 506.164 - Objective General Appearance: positive: No acute distress, Alert Eyes Bilateral: positive: Normal inspection ENT: positive: ENT inspection nml, Pharynx nml, Dry mucous membranes Neck: positive: Nml inspection, Thyroid nml, Stiff neck, Other (large neck circ. ) Respiratory: positive: Chest non-tender, No respiratory distress, Other ( diminished with slight crackles in low bases.) Cardiovascular: positive: Regular rate & rhythm, No gallop, Systolic murmur, Decreased pulse(s) Peripheral Pulses: 1+ Radial (R), 1+ Radial (L) Abdomen: positive: Non-tender, Abnml bowel sounds, Other (obese, soft.) Back: positive: Nml inspection Skin: positive: No rash, Warm, Dry, Diaphoresis (redness noted on back, bilateral forearms, and cheeks appear kyler.) Extremities: positive: Non-tender, Pedal edema, Joint swelling, Other (chronic BLE edema, prescribed PO lasix, no on hold.) Neurologic/Psychiatric: positive: Oriented x3, CN's nml (2-12), Motor nml, Sensation nml, Depressed mood/affect Reflexes: Bicep (R): 2+, Bicep (L): 2+ - Lab Results Fish Bones: 05/20/17 05:27 05/20/17 05:27 Other Labs: Lab Results x24hrs 05/18/17 05/18/17 05/18/17 Range/Units 04:50 04:50 04:50 WBC 30.5 H (4.8-10.8) x10^3/uL RBC 4.88 (4.70-6.10) 10^6/uL Hgb 14.8 (14.0-18.0) g/dL Hct 43.5 (42.0-52.0) % MCV 89.2 (80.0-94.0) fL MCH 30.3 (27.0-31.0) pg MCHC 34.0 (32.0-36.0) g/dL RDW 14.2 (12.0-15.0) % Plt Count 165 (130-450) 10^3/uL MPV 8.0 (7.4-11.4) fL Neut # Not Reportable Lymph # Not Reportable Wetzel # Not Reportable Eos # Not Reportable Baso # Not Reportable Absolute Nucleated RBC Not Reportable Total Counted 100 Band Neuts % (Manual) 9 (0 - 10) % Abnorm Lymph % (Manual) 0 % Nucleated RBC % Not Reportable Neutrophils # (Manual) 28.7 H (1.5-6.6) 10^3/uL Lymphocytes # (Manual) 0.3 L (1.5-3.5) 10^3/uL Monocytes # (Manual) 1.5 H (0.0-1.0) 10^3/uL Eosinophils # (Manual) 0.0 (0-0.7) 10^3/uL Basophils # (Manual) 0.0 (0-0.1) 10^3/uL Differential Comment MANUAL DIFFERENTIAL Platelet Estimate NORMAL (130-450,000) (NORMAL) Platelet Morphology 1+ LARGE PLATELETS (NORMAL) RBC Morph Micro Appear NORMAL APPEARANCE (NORMAL) ESR (0-20) mm/Hr D-Dimer (200.0-255.0) ng/mL Sodium 137 (135-145) mmol/L Potassium 3.2 L (3.5-5.0) mmol/L Chloride 99 L (101-111) mmol/L Carbon Dioxide 26 (21-32) mmol/L Anion Gap 12.0 (6-13) BUN 29 H (6-20) mg/dL Creatinine 1.8 H (0.6-1.2) mg/dL Estimated GFR (MDRD) 39 L (>89) Glucose 157 H (70-100) mg/dL Glycated Hemoglobin (4.6-6.2) % Estim Average Glucose (70-100) Calcium 8.5 (8.5-10.3) mg/dL Total Bilirubin 1.1 H (0.2-1.0) mg/dL AST 30 (10-42) IU/L ALT 34 (10-60) IU/L Alkaline Phosphatase 45 (42-121) IU/L Total Creatine Kinase (22-269) IU/L Troponin I (<0.49) ng/mL C-Reactive Protein (0-1.0) mg/dL B-Natriuretic Peptide 84 (5-100) pg/mL Total Protein 6.6 L (6.7-8.2) g/dL Albumin 4.1 (3.2-5.5) g/dL Globulin 2.5 (2.1-4.2) g/dL Albumin/Globulin Ratio 1.6 (1.0-2.2) Triglycerides ( - 149) mg/dL Cholesterol ( - 199) mg/dL LDL Cholesterol, Calc ( - 129) mg/dL VLDL Cholesterol mg/dL HDL Cholesterol (60 - ) mg/dL LDL/HDL Ratio (<3.6) Cholesterol/HDL Ratio (<5.0) TSH (0.34-5.60) uIU/mL Urine Opiates Screen (NEGATIVE) Ur Oxycodone Screen (NEGATIVE) Urine Methadone Screen (NEGATIVE) Ur Propoxyphene Screen (NEGATIVE) Ur Barbiturates Screen (NEGATIVE) Ur Tricyclics Screen (NEGATIVE) Ur Phencyclidine Scrn (NEGATIVE) Ur Amphetamine Screen (NEGATIVE) U Methamphetamines Scrn (NEGATIVE) U Benzodiazepines Scrn (NEGATIVE) Urine Cocaine Screen (NEGATIVE) U Cannabinoids Screen (NEGATIVE) Ethyl Alcohol mg/dL 05/17/17 05/17/17 05/17/17 Range/Units 17:30 17:24 17:24 WBC (4.8-10.8) x10^3/uL RBC (4.70-6.10) 10^6/uL Hgb (14.0-18.0) g/dL Hct (42.0-52.0) % MCV (80.0-94.0) fL MCH (27.0-31.0) pg MCHC (32.0-36.0) g/dL RDW (12.0-15.0) % Plt Count (130-450) 10^3/uL MPV (7.4-11.4) fL Neut # Lymph # Wetzel # Eos # Baso # Absolute Nucleated RBC Total Counted Band Neuts % (Manual) (0 - 10) % Abnorm Lymph % (Manual) % Nucleated RBC % Neutrophils # (Manual) (1.5-6.6) 10^3/uL Lymphocytes # (Manual) (1.5-3.5) 10^3/uL Monocytes # (Manual) (0.0-1.0) 10^3/uL Eosinophils # (Manual) (0-0.7) 10^3/uL Basophils # (Manual) (0-0.1) 10^3/uL Differential Comment Platelet Estimate (NORMAL) Platelet Morphology (NORMAL) RBC Morph Micro Appear (NORMAL) ESR (0-20) mm/Hr D-Dimer (200.0-255.0) ng/mL Sodium (135-145) mmol/L Potassium (3.5-5.0) mmol/L Chloride (101-111) mmol/L Carbon Dioxide (21-32) mmol/L Anion Gap (6-13) BUN (6-20) mg/dL Creatinine (0.6-1.2) mg/dL Estimated GFR (MDRD) (>89) Glucose (70-100) mg/dL Glycated Hemoglobin 5.0 (4.6-6.2) % Estim Average Glucose 97 (70-100) Calcium (8.5-10.3) mg/dL Total Bilirubin (0.2-1.0) mg/dL AST (10-42) IU/L ALT (10-60) IU/L Alkaline Phosphatase (42-121) IU/L Total Creatine Kinase (22-269) IU/L Troponin I (<0.49) ng/mL C-Reactive Protein (0-1.0) mg/dL B-Natriuretic Peptide (5-100) pg/mL Total Protein (6.7-8.2) g/dL Albumin (3.2-5.5) g/dL Globulin (2.1-4.2) g/dL Albumin/Globulin Ratio (1.0-2.2) Triglycerides 117 ( - 149) mg/dL Cholesterol 147 ( - 199) mg/dL LDL Cholesterol, Calc 90 ( - 129) mg/dL VLDL Cholesterol 23 mg/dL HDL Cholesterol 34 L (60 - ) mg/dL LDL/HDL Ratio 2.6 (<3.6) Cholesterol/HDL Ratio 4.3 (<5.0) TSH (0.34-5.60) uIU/mL Urine Opiates Screen NEGATIVE (NEGATIVE) Ur Oxycodone Screen NEGATIVE (NEGATIVE) Urine Methadone Screen NEGATIVE (NEGATIVE) Ur Propoxyphene Screen NEGATIVE (NEGATIVE) Ur Barbiturates Screen NEGATIVE (NEGATIVE) Ur Tricyclics Screen NEGATIVE (NEGATIVE) Ur Phencyclidine Scrn NEGATIVE (NEGATIVE) Ur Amphetamine Screen NEGATIVE (NEGATIVE) U Methamphetamines Scrn NEGATIVE (NEGATIVE) U Benzodiazepines Scrn POSITIVE H (NEGATIVE) Urine Cocaine Screen NEGATIVE (NEGATIVE) U Cannabinoids Screen NEGATIVE (NEGATIVE) Ethyl Alcohol mg/dL 05/17/17 05/17/17 05/17/17 Range/Units 17:24 17:24 17:24 WBC (4.8-10.8) x10^3/uL RBC (4.70-6.10) 10^6/uL Hgb (14.0-18.0) g/dL Hct (42.0-52.0) % MCV (80.0-94.0) fL MCH (27.0-31.0) pg MCHC (32.0-36.0) g/dL RDW (12.0-15.0) % Plt Count (130-450) 10^3/uL MPV (7.4-11.4) fL Neut # Lymph # Wetzel # Eos # Baso # Absolute Nucleated RBC Total Counted Band Neuts % (Manual) (0 - 10) % Abnorm Lymph % (Manual) % Nucleated RBC % Neutrophils # (Manual) (1.5-6.6) 10^3/uL Lymphocytes # (Manual) (1.5-3.5) 10^3/uL Monocytes # (Manual) (0.0-1.0) 10^3/uL Eosinophils # (Manual) (0-0.7) 10^3/uL Basophils # (Manual) (0-0.1) 10^3/uL Differential Comment Platelet Estimate (NORMAL) Platelet Morphology (NORMAL) RBC Morph Micro Appear (NORMAL) ESR (0-20) mm/Hr D-Dimer 892.1 H (200.0-255.0) ng/mL Sodium (135-145) mmol/L Potassium (3.5-5.0) mmol/L Chloride (101-111) mmol/L Carbon Dioxide (21-32) mmol/L Anion Gap (6-13) BUN (6-20) mg/dL Creatinine (0.6-1.2) mg/dL Estimated GFR (MDRD) (>89) Glucose (70-100) mg/dL Glycated Hemoglobin (4.6-6.2) % Estim Average Glucose (70-100) Calcium (8.5-10.3) mg/dL Total Bilirubin (0.2-1.0) mg/dL AST (10-42) IU/L ALT (10-60) IU/L Alkaline Phosphatase (42-121) IU/L Total Creatine Kinase (22-269) IU/L Troponin I (<0.49) ng/mL C-Reactive Protein 1.7 H (0-1.0) mg/dL B-Natriuretic Peptide (5-100) pg/mL Total Protein (6.7-8.2) g/dL Albumin (3.2-5.5) g/dL Globulin (2.1-4.2) g/dL Albumin/Globulin Ratio (1.0-2.2) Triglycerides ( - 149) mg/dL Cholesterol ( - 199) mg/dL LDL Cholesterol, Calc ( - 129) mg/dL VLDL Cholesterol mg/dL HDL Cholesterol (60 - ) mg/dL LDL/HDL Ratio (<3.6) Cholesterol/HDL Ratio (<5.0) TSH 1.01 (0.34-5.60) uIU/mL Urine Opiates Screen (NEGATIVE) Ur Oxycodone Screen (NEGATIVE) Urine Methadone Screen (NEGATIVE) Ur Propoxyphene Screen (NEGATIVE) Ur Barbiturates Screen (NEGATIVE) Ur Tricyclics Screen (NEGATIVE) Ur Phencyclidine Scrn (NEGATIVE) Ur Amphetamine Screen (NEGATIVE) U Methamphetamines Scrn (NEGATIVE) U Benzodiazepines Scrn (NEGATIVE) Urine Cocaine Screen (NEGATIVE) U Cannabinoids Screen (NEGATIVE) Ethyl Alcohol mg/dL 05/17/17 05/17/17 05/17/17 Range/Units 17:24 17:24 17:24 WBC (4.8-10.8) x10^3/uL RBC (4.70-6.10) 10^6/uL Hgb (14.0-18.0) g/dL Hct (42.0-52.0) % MCV (80.0-94.0) fL MCH (27.0-31.0) pg MCHC (32.0-36.0) g/dL RDW (12.0-15.0) % Plt Count (130-450) 10^3/uL MPV (7.4-11.4) fL Neut # Lymph # Wetzel # Eos # Baso # Absolute Nucleated RBC Total Counted Band Neuts % (Manual) (0 - 10) % Abnorm Lymph % (Manual) % Nucleated RBC % Neutrophils # (Manual) (1.5-6.6) 10^3/uL Lymphocytes # (Manual) (1.5-3.5) 10^3/uL Monocytes # (Manual) (0.0-1.0) 10^3/uL Eosinophils # (Manual) (0-0.7) 10^3/uL Basophils # (Manual) (0-0.1) 10^3/uL Differential Comment Platelet Estimate (NORMAL) Platelet Morphology (NORMAL) RBC Morph Micro Appear (NORMAL) ESR 4 (0-20) mm/Hr D-Dimer (200.0-255.0) ng/mL Sodium (135-145) mmol/L Potassium (3.5-5.0) mmol/L Chloride (101-111) mmol/L Carbon Dioxide (21-32) mmol/L Anion Gap (6-13) BUN (6-20) mg/dL Creatinine (0.6-1.2) mg/dL Estimated GFR (MDRD) (>89) Glucose (70-100) mg/dL Glycated Hemoglobin (4.6-6.2) % Estim Average Glucose (70-100) Calcium (8.5-10.3) mg/dL Total Bilirubin (0.2-1.0) mg/dL AST (10-42) IU/L ALT (10-60) IU/L Alkaline Phosphatase (42-121) IU/L Total Creatine Kinase 317 H (22-269) IU/L Troponin I 0.04 (<0.49) ng/mL C-Reactive Protein (0-1.0) mg/dL B-Natriuretic Peptide (5-100) pg/mL Total Protein (6.7-8.2) g/dL Albumin (3.2-5.5) g/dL Globulin (2.1-4.2) g/dL Albumin/Globulin Ratio (1.0-2.2) Triglycerides ( - 149) mg/dL Cholesterol ( - 199) mg/dL LDL Cholesterol, Calc ( - 129) mg/dL VLDL Cholesterol mg/dL HDL Cholesterol (60 - ) mg/dL LDL/HDL Ratio (<3.6) Cholesterol/HDL Ratio (<5.0) TSH (0.34-5.60) uIU/mL Urine Opiates Screen (NEGATIVE) Ur Oxycodone Screen (NEGATIVE) Urine Methadone Screen (NEGATIVE) Ur Propoxyphene Screen (NEGATIVE) Ur Barbiturates Screen (NEGATIVE) Ur Tricyclics Screen (NEGATIVE) Ur Phencyclidine Scrn (NEGATIVE) Ur Amphetamine Screen (NEGATIVE) U Methamphetamines Scrn (NEGATIVE) U Benzodiazepines Scrn (NEGATIVE) Urine Cocaine Screen (NEGATIVE) U Cannabinoids Screen (NEGATIVE) Ethyl Alcohol mg/dL 05/17/17 Range/Units 15:24 WBC (4.8-10.8) x10^3/uL RBC (4.70-6.10) 10^6/uL Hgb (14.0-18.0) g/dL Hct (42.0-52.0) % MCV (80.0-94.0) fL MCH (27.0-31.0) pg MCHC (32.0-36.0) g/dL RDW (12.0-15.0) % Plt Count (130-450) 10^3/uL MPV (7.4-11.4) fL Neut # Lymph # Wetzel # Eos # Baso # Absolute Nucleated RBC Total Counted Band Neuts % (Manual) (0 - 10) % Abnorm Lymph % (Manual) % Nucleated RBC % Neutrophils # (Manual) (1.5-6.6) 10^3/uL Lymphocytes # (Manual) (1.5-3.5) 10^3/uL Monocytes # (Manual) (0.0-1.0) 10^3/uL Eosinophils # (Manual) (0-0.7) 10^3/uL Basophils # (Manual) (0-0.1) 10^3/uL Differential Comment Platelet Estimate (NORMAL) Platelet Morphology (NORMAL) RBC Morph Micro Appear (NORMAL) ESR (0-20) mm/Hr D-Dimer (200.0-255.0) ng/mL Sodium (135-145) mmol/L Potassium (3.5-5.0) mmol/L Chloride (101-111) mmol/L Carbon Dioxide (21-32) mmol/L Anion Gap (6-13) BUN (6-20) mg/dL Creatinine (0.6-1.2) mg/dL Estimated GFR (MDRD) (>89) Glucose (70-100) mg/dL Glycated Hemoglobin (4.6-6.2) % Estim Average Glucose (70-100) Calcium (8.5-10.3) mg/dL Total Bilirubin (0.2-1.0) mg/dL AST (10-42) IU/L ALT (10-60) IU/L Alkaline Phosphatase (42-121) IU/L Total Creatine Kinase (22-269) IU/L Troponin I (<0.49) ng/mL C-Reactive Protein (0-1.0) mg/dL B-Natriuretic Peptide (5-100) pg/mL Total Protein (6.7-8.2) g/dL Albumin (3.2-5.5) g/dL Globulin (2.1-4.2) g/dL Albumin/Globulin Ratio (1.0-2.2) Triglycerides ( - 149) mg/dL Cholesterol ( - 199) mg/dL LDL Cholesterol, Calc ( - 129) mg/dL VLDL Cholesterol mg/dL HDL Cholesterol (60 - ) mg/dL LDL/HDL Ratio (<3.6) Cholesterol/HDL Ratio (<5.0) TSH (0.34-5.60) uIU/mL Urine Opiates Screen (NEGATIVE) Ur Oxycodone Screen (NEGATIVE) Urine Methadone Screen (NEGATIVE) Ur Propoxyphene Screen (NEGATIVE) Ur Barbiturates Screen (NEGATIVE) Ur Tricyclics Screen (NEGATIVE) Ur Phencyclidine Scrn (NEGATIVE) Ur Amphetamine Screen (NEGATIVE) U Methamphetamines Scrn (NEGATIVE) U Benzodiazepines Scrn (NEGATIVE) Urine Cocaine Screen (NEGATIVE) U Cannabinoids Screen (NEGATIVE) Ethyl Alcohol 5.0 mg/dL - Diagnostic Imaging Diagnostic Imaging Results: positive: Final report reviewed Assessment/Plan - Problem List (1) Gram positive sepsis Impression: A SOFA score was calculated at 4. A diagnosis of sepsis is made by this patient having evidence of organ dysfunction including AUGUSTINE, hypotension, temp max of 38.0, and a WBC count of >30. Preliminary blood culture results show gram positive cocci in chains, Group B strept. Plan: Hold diuretics, treat kidney injury, and await final blood culture results. (2) AUGUSTINE (acute kidney injury) Impression: Patient has a baseline creatinine of 1.3, creatinine max of 1.9 and today creatinine was 1.8. GFR is reduced at 39. He received 2 fluid boluses upon admission and gentle fluids overnight. CT for PE is on hold due to reduced kidney function. Plan: Monitor labs, avoid nephrotoxins, watch for signs of worsening condition. (3) Fever Impression: Patient had a temp max of 38.0 upon admission, and remained febrile for his first night of stay. This normalized with tylenol. Plan: Continue to monitor VS. (4) Pneumonia Impression: Imaging completed in the ED reveals pneumonia. Patient had signs of this illness with being febrile, having a cough and feeling generally exhausted. Plan: Continue to monitor and give IV antibiotics that will be changed to PO on discharge. Qualifiers: Pneumonia type: due to unspecified organism Laterality: right Lung location: middle lobe of lung Qualified Code(s): J18.1 - Lobar pneumonia, unspecified organism (5) Cough Impression: Patient was noted to have fluid behind bilateral tympanic membranes upon admission exam. Patient also complained of post-nasal gtt and headache. He believes he has had a cold (URI) for the past week. Cough has been persistent since the time of admission. Plan: Use Muscinex tabs, and monitor. (6) JAYNE on CPAP Impression: Patient has a history of this and uses CPAP at home. His home unit was brought in by his . Plan: Continue to encourage use and use medications to control cough.
[2017-05-18] MEDS: amLODIPine 5 MG TABLET PO SCH (08:58)
[2017-05-18] MEDS: FAMOTIDINE 20 MG TABLET PO SCH (08:58)
[2017-05-18] MEDS: POLYETHYLENE GLYCOL 3350 17 GM PACKET PO SCH (08:58)
[2017-05-18] MEDS: ENOXAPARIN 40 MG/0.4 ML SYRINGE SUBQ SCH ×2 (08:58→20:38)
[2017-05-18] MEDS: SODIUM CHLORIDE FLUSH 0.9% 10 ML SYRINGE IVP SCH ×2 (09:00→16:04)
[2017-05-18] MEDS ORDERED: ENOXAPARIN 40 MG/0.4 ML SYRINGE SUBQ SCH (09:00)
[2017-05-18] MEDS ORDERED: RANITIDINE HCL 300 MG PO SCH (09:00)
[2017-05-18] MEDS: IPRATROPIUM/ALBUTEROL 3 ML NEB INH PRN ×2 (09:30→21:28)
[2017-05-18] MEDS: BUDESONIDE 0.5 MG/2 ML NEB INH SCH ×2 (09:30→21:28)
[2017-05-18] MEDS: CLINDAMYCIN 600 MG/50 ML 50 ML IV SCH ×3 (10:28→21:40)
[2017-05-18] MEDS: NS W/20 MEQ KCL 1,000 ML IV SCH ×2 (11:12→22:57)
[2017-05-18] MEDS: SACCHAROMYCES BOULARDII 250 MG CAPSULE PO SCH ×2 (12:10→16:53)
[2017-05-18] MEDS: MONTELUKAST 10 MG TABLET PO SCH (20:38)
[2017-05-18] MEDS: TEMAZEPAM 15 MG CAPSULE PO PRN (21:41)
[2017-05-19] MEDS: SODIUM CHLORIDE FLUSH 0.9% 10 ML SYRINGE IVP SCH ×3 (01:03→15:46)
--- NOTE | 2017-05-19 02:05 | Ultrasound Report ---
EXAM: BILATERAL LOWER EXTREMITY VENOUS ULTRASOUND EXAM DATE: 05/19/2017 12:18 AM. CLINICAL HISTORY: Leg edema. COMPARISON: None. TECHNIQUE: Real-time sonographic vascular imaging was performed by the cutter machine through the lower extremities utilizing both color-flow and Doppler spectral analysis. Multiple sales donor recruitment representative static i mages were saved for review. FINDINGS: Right: Common Femoral Vein (CFV): Normal. CFV-GSV Junction: Normal. Profunda Femoral Vein (PFV): Normal. Femoral Vein (FV) Prox: Normal. Femoral Vein (FV) Mid: Normal but suboptimally seen. Femoral Vein (FV) Dist: Normal but suboptimally seen. Popliteal Vein: Normal. Posterior Tibial Veins: Normal but suboptimally seen. Peroneal Veins: Not seen. Left: Common Femoral Vein (CFV): Normal. CFV-GSV Junction: Normal. Profunda Femoral Vein (PFV): Normal. Femoral Vein (FV) Prox: Normal. Femoral Vein (FV) Mid: Normal but suboptimally seen. Femoral Vein (FV) Dist: Normal but suboptimally seen. Popliteal Vein: Normal. Posterior Tibial Veins: Normal but suboptimally seen. Peroneal Veins: Not seen. Other: None. IMPRESSION: 1. No evidence for deep venous thrombosis bilaterally. 2. Calf veins and mid to distal bilateral femoral veins are suboptimally seen due to body habitus. [facility] Referring Provider Line: [phone] SITE ID: [id number]
--- NOTE | 2017-05-19 02:05 | Ultrasound Preliminary Report ---
Exam: US DUPLEX EXT VEINS BILATERAL IMPRESSION: 1. No evidence for deep venous thrombosis bilaterally. 2. Calf veins and mid to distal bilateral femoral veins are suboptimally seen due to body habitus. [facility] SITE ID: [id number]
[2017-05-19] MEDS: CLINDAMYCIN 600 MG/50 ML 50 ML IV SCH ×4 (04:01→21:48)
[2017-05-19 05:37] LABS: BASOPHILS # (AUTO) 0.1 10^3/uL (0.0-0.1); BASOPHILS % (AUTO) 0.4 %; LYMPHOCYTES # (AUTO) 0.3 10^3/uL (1.5-3.5); LYMPHOCYTES % (AUTO) 1.1 %; MEAN CORPUSCULAR HEMOGLOBIN 30.6 pg (27.0-31.0); MEAN CORPUSCULAR HGB CONC 33.6 g/dL (32.0-36.0); MEAN CORPUSCULAR VOLUME 90.9 fL (80.0-94.0); MEAN PLATELET VOLUME 7.9 fL (7.4-11.4); MONOCYTES # (AUTO) 0.5 10^3/uL (0.0-1.0); MONOCYTES % (AUTO) 1.9 %; NEUTROPHILS # (AUTO) 25.9 10^3/uL (1.5-6.6); NEUTROPHILS % (AUTO) 96.6 %; PLT - PLATELET COUNT 163 10^3/uL (130-450); RED BLOOD COUNT 4.58 10^6/uL (4.70-6.10); RED CELL DISTRIBUTION WIDTH 14.3 % (12.0-15.0); WHITE BLOOD COUNT 26.8 x10^3/uL (4.8-10.8)
[2017-05-19 05:56] LABS: ALBUMIN 3.7 g/dL (3.2-5.5); ALBUMIN/GLOBULIN RATIO 1.3 (1.0-2.2); BILIRUBIN,TOTAL 0.9 mg/dL (0.2-1.0); CALCIUM 8.3 mg/dL (8.5-10.3); CREATININE 1.7 mg/dL (0.6-1.2); TOTAL PROTEIN 6.6 g/dL (6.7-8.2)
[2017-05-19] MEDS: PANTOPRAZOLE 40 MG TABLET PO SCH (06:18)
[2017-05-19] MEDS: methylPREDNISolone SUCCINATE 40 MG/ML VIAL IVP SCH ×2 (06:18→14:04)
[2017-05-19] MEDS: SODIUM CHLORIDE FLUSH 0.9% 10 ML SYRINGE IVP PRN ×3 (06:18→21:48)
[2017-05-19 06:36] LABS: DIFFERENTIAL COMMENT MANUAL=AUTO DIFF; PLATELET ESTIMATE, MANUAL NORMAL (130-450,000) (NORMAL); PLATELET MORPHOLOGY NORMAL APPEARANCE (NORMAL); RBC MORPHOLOGY (MULTIPLE) NORMAL APPEARANCE (NORMAL)
[2017-05-19] MEDS: BUDESONIDE 0.5 MG/2 ML NEB INH SCH ×2 (07:35→19:22)
[2017-05-19] MEDS: FAMOTIDINE 20 MG TABLET PO SCH (08:43)
[2017-05-19] MEDS: ENOXAPARIN 40 MG/0.4 ML SYRINGE SUBQ SCH ×2 (08:43→20:38)
[2017-05-19] MEDS: SACCHAROMYCES BOULARDII 250 MG CAPSULE PO SCH ×2 (08:43→16:49)
[2017-05-19] MEDS: amLODIPine 5 MG TABLET PO SCH (08:43)
[2017-05-19] MEDS: POLYETHYLENE GLYCOL 3350 17 GM PACKET PO SCH (08:44)
[2017-05-19] MEDS: NS W/20 MEQ KCL 1,000 ML IV SCH (11:23)
[2017-05-19] MEDS: IPRATROPIUM/ALBUTEROL 3 ML NEB INH PRN (14:20)
--- NOTE | 2017-05-19 14:51 | Nuclear Medicine Report ---
EXAM: PERFUSION ONLY LUNG SCAN EXAM DATE: 05/19/2017 02:18 PM. CLINICAL HISTORY: Elevated d dimer, tachycardia. COMPARISON: Chest radiographically. 20 11/10/2017. TECHNIQUE: The patient was injected with 5.1 mCi of technetium 99m MAA intravenously and 8 standard p erfusion images of the lungs were obtained. FINDINGS: Perfusion Scan: Symmetric and homogenous perfusion activity is present. No focal perfusion defects ar e evident. IMPRESSION: Negative for focal perfusion defect to suggest pulmonary embolism. [facility] Referring Provider Line: [phone] SITE ID: [id number]
[2017-05-19] MEDS ORDERED: cefTRIAXone 1 GM in SODIUM CHLORIDE 0.9% MINIBAG 100 ML IV SCH (18:00)
--- NOTE | 2017-05-19 18:03 | PROVIDER PROGRESS NOTE ---
Subjective - Prog Note Date Prog Note Date: 05/19/17 Prog Note Time: 08:00 - Subjective Pt reports feeling: Improved Subjective: Etienne states that he is slowly improving and having less fever and chills. He denies SOB, chest pain, N/V or a new cough. Current Medications - Current Medications Current Medications: Furosemide [Lasix] 60 mg PO DAILY 03/23/15 Potassium Chloride [Micro-K] 20 meq PO DAILY 03/23/15 Ranitidine HCl [Zantac] 300 mg PO DAILY 03/23/15 Temazepam 15 - 30 mg PO QPM PRN 08/30/16 Fluticasone/Salmeterol [Advair 250-50 Diskus] 1 puffs INH BID 05/17/17 Montelukast [Singulair] 10 mg PO QPM 05/17/17 amLODIPine [Norvasc] 5 mg PO DAILY 05/17/17 cloNIDine HCl [Clonidine HCl] 0.1 mg PO BID 05/17/17 hydroCHLOROthiazide [Hydrochlorothiazide] 25 mg PO DAILY 05/17/17 Objective - Vital Signs/Intake & Output Reviewed Vital Signs: Yes Vital Signs: Vital Signs x48h Temp Pulse Pulse Resp BP Pulse Ox 05/19/17 15:34 36.6 C 82 18 142/81 H 94 05/19/17 14:20 74 18 Intake & Output: Intake & Output 05/16/17 05/17/17 05/18/17 05/19/17 23:59 23:59 23:59 23:59 Intake Total 2502 3940.048 2994.440 Output Total 200 600 Balance 2302 3340.048 2994.440 - Objective General Appearance: positive: No acute distress, Alert Eyes Bilateral: positive: Normal inspection ENT: positive: ENT inspection nml, Pharynx nml, No signs of dehydration Neck: positive: Nml inspection, Thyroid nml Respiratory: positive: Chest non-tender, No respiratory distress, Breath sounds nml, Wheezes, Other (crackles.) Cardiovascular: positive: Regular rate & rhythm, No murmur, No gallop, Decreased pulse(s) Peripheral Pulses: 1+ Radial (R), 1+ Radial (L) Abdomen: positive: Non-tender, Nml bowel sounds Back: positive: Nml inspection Skin: positive: No rash, Warm, Dry Extremities: positive: Non-tender, Full ROM, Pedal edema (chronic, pitting BLE) Neurologic/Psychiatric: positive: Oriented x3, CN's nml (2-12), Motor nml, Sensation nml, Depressed mood/affect Reflexes: Bicep (R): 2+, Bicep (L): 2+ - Lab Results Fish Bones: 05/20/17 05:27 05/20/17 05:27 Other Labs: Lab Results x24hrs 05/19/17 05/19/17 05/19/17 Range/Units 05:16 05:16 05:16 WBC 26.8 H (4.8-10.8) x10^3/uL RBC 4.58 L (4.70-6.10) 10^6/uL Hgb 14.0 (14.0-18.0) g/dL Hct 41.6 L (42.0-52.0) % MCV 90.9 (80.0-94.0) fL MCH 30.6 (27.0-31.0) pg MCHC 33.6 (32.0-36.0) g/dL RDW 14.3 (12.0-15.0) % Plt Count 163 (130-450) 10^3/uL MPV 7.9 (7.4-11.4) fL Neut # 25.9 H (1.5-6.6) 10^3/uL Lymph # 0.3 L (1.5-3.5) 10^3/uL [place] # 0.5 (0.0-1.0) 10^3/uL Eos # 0.0 (0.0-0.7) 10^3/uL Baso # 0.1 (0.0-0.1) 10^3/uL Absolute Nucleated RBC 0.00 x10^3/uL Band Neuts % (Manual) Not Reportable Abnorm Lymph % (Manual) Not Reportable Nucleated RBC % 0.0 /100WBC Neutrophils # (Manual) Not Reportable Lymphocytes # (Manual) Not Reportable Monocytes # (Manual) Not Reportable Eosinophils # (Manual) Not Reportable Basophils # (Manual) Not Reportable Differential Comment MANUAL=AUTO DIFF Platelet Estimate NORMAL (130-450,000) (NORMAL) Platelet Morphology NORMAL APPEARANCE (NORMAL) RBC Morph Micro Appear NORMAL APPEARANCE (NORMAL) Sodium 136 (135-145) mmol/L Potassium 3.5 (3.5-5.0) mmol/L Chloride 101 (101-111) mmol/L Carbon Dioxide 25 (21-32) mmol/L Anion Gap 10.0 (6-13) BUN 33 H (6-20) mg/dL Creatinine 1.7 H (0.6-1.2) mg/dL Estimated GFR (MDRD) 42 L (>89) Glucose 158 H (70-100) mg/dL Calcium 8.3 L (8.5-10.3) mg/dL Total Bilirubin 0.9 (0.2-1.0) mg/dL AST 32 (10-42) IU/L ALT 32 (10-60) IU/L Alkaline Phosphatase 44 (42-121) IU/L B-Natriuretic Peptide 314 H (5-100) pg/mL Total Protein 6.6 L (6.7-8.2) g/dL Albumin 3.7 (3.2-5.5) g/dL Globulin 2.9 (2.1-4.2) g/dL Albumin/Globulin Ratio 1.3 (1.0-2.2) - Diagnostic Imaging Diagnostic Imaging Results: positive: Final report reviewed Assessment/Plan - Problem List (1) Gram positive sepsis Impression: A SOFA score was calculated at 4. A diagnosis of sepsis is made by this patient having evidence of organ dysfunction including AUGUSTINE, hypotension, temp max of 38.0, and a WBC count of >30. Preliminary blood culture results show gram positive cocci in chains, Group B strep. Plan: Hold diuretics, treat kidney injury, and await final blood culture results. (2) AUGUSTINE (acute kidney injury) Impression: Patient has a baseline creatinine of 1.3, creatinine max of 1.9 and today creatinine was 1.8. GFR is reduced at 39. He received 2 fluid boluses upon admission and gentle fluids overnight. CT for PE is on hold due to reduced kidney function. Plan: Monitor labs, avoid nephrotoxins, watch for signs of worsening condition. (3) Fever Impression: Patient had a temp max of 38.0 upon admission, and remained febrile for his first night of stay. This normalized with tylenol and the patient has not had any more episodes since admission. Plan: Continue to monitor VS. (4) Pneumonia Impression: Imaging completed in the ED reveals pneumonia. Patient had signs of this illness with being febrile, having a cough and feeling generally exhausted. Plan: Continue to monitor and give IV antibiotics that will be changed to PO on discharge. Qualifiers: Pneumonia type: due to unspecified organism Laterality: right Lung location: middle lobe of lung Qualified Code(s): J18.1 - Lobar pneumonia, unspecified organism (5) Cough Impression: Patient was noted to have fluid behind bilateral tympanic membranes upon admission exam. Patient also complained of post-nasal gtt and headache. He believes he has had a cold (URI) for the past week. Cough has been persistent since the time of admission. Plan: Use Muscinex tabs, and monitor. (6) JAYNE on CPAP Impression: Patient has a history of this and uses CPAP at home. His home unit was brought in by his . Plan: Continue to encourage use and use medications to control cough.
[2017-05-19] MEDS: MONTELUKAST 10 MG TABLET PO SCH (20:38)
[2017-05-19] MEDS: OXYMETAZOLINE NASAL SPRAY NAS SCH (20:39)
[2017-05-19] MEDS: TEMAZEPAM 15 MG CAPSULE PO PRN (21:48)
[2017-05-20] MEDS: SODIUM CHLORIDE FLUSH 0.9% 10 ML SYRINGE IVP SCH ×2 (00:12→05:55)
[2017-05-20] MEDS: methylPREDNISolone SUCCINATE 40 MG/ML VIAL IVP SCH ×2 (00:12→05:55)
[2017-05-20] MEDS: NS W/20 MEQ KCL 1,000 ML IV SCH (00:13)
[2017-05-20 05:54] LABS: HGB - HEMOGLOBIN 13.8 g/dL (14.0-18.0); LYMPHOCYTES # (AUTO) 0.8 10^3/uL (1.5-3.5); LYMPHOCYTES % (AUTO) 3.9 %; MEAN CORPUSCULAR HEMOGLOBIN 30.9 pg (27.0-31.0); MEAN CORPUSCULAR HGB CONC 34.6 g/dL (32.0-36.0); MEAN CORPUSCULAR VOLUME 89.2 fL (80.0-94.0); MEAN PLATELET VOLUME 8.2 fL (7.4-11.4); MONOCYTES # (AUTO) 0.5 10^3/uL (0.0-1.0); MONOCYTES % (AUTO) 2.3 %; NEUTROPHILS # (AUTO) 20.3 10^3/uL (1.5-6.6); NEUTROPHILS % (AUTO) 93.8 %; PLT - PLATELET COUNT 164 10^3/uL (130-450); RED BLOOD COUNT 4.46 10^6/uL (4.70-6.10); RED CELL DISTRIBUTION WIDTH 14.2 % (12.0-15.0); WHITE BLOOD COUNT 21.7 x10^3/uL (4.8-10.8)
[2017-05-20] MEDS: CLINDAMYCIN 600 MG/50 ML 50 ML IV SCH (05:55)
[2017-05-20] MEDS: PANTOPRAZOLE 40 MG TABLET PO SCH (06:03)
[2017-05-20 06:04] LABS: ALBUMIN 3.7 g/dL (3.2-5.5); ALBUMIN/GLOBULIN RATIO 1.2 (1.0-2.2); BILIRUBIN,TOTAL 0.6 mg/dL (0.2-1.0); CALCIUM 8.3 mg/dL (8.5-10.3); CREATININE 1.4 mg/dL (0.6-1.2); TOTAL PROTEIN 6.7 g/dL (6.7-8.2)
[2017-05-20] MEDS: IPRATROPIUM/ALBUTEROL 3 ML NEB INH PRN (06:13)
[2017-05-20] MEDS: BUDESONIDE 0.5 MG/2 ML NEB INH SCH (06:13)
[2017-05-20 06:18] LABS: PLATELET ESTIMATE, MANUAL NORMAL (130-450,000) (NORMAL); PLATELET MORPHOLOGY NORMAL APPEARANCE (NORMAL); RBC MORPHOLOGY (MULTIPLE) NORMAL APPEARANCE (NORMAL)
[2017-05-20] MEDS: SACCHAROMYCES BOULARDII 250 MG CAPSULE PO SCH (08:31)
[2017-05-20] MEDS: amLODIPine 5 MG TABLET PO SCH (08:31)
[2017-05-20] MEDS: POLYETHYLENE GLYCOL 3350 17 GM PACKET PO SCH (08:32)
[2017-05-20] MEDS: ENOXAPARIN 40 MG/0.4 ML SYRINGE SUBQ SCH (08:32)
[2017-05-20] MEDS: OXYMETAZOLINE NASAL SPRAY NAS SCH ×2 (08:32→09:42)
[2017-05-20] MEDS: FAMOTIDINE 20 MG TABLET PO SCH (08:32)
[2017-05-20] MEDS ORDERED: CLINDAMYCIN 150 MG CAPSULE PO SCH (09:00)
--- NOTE | 2017-05-20 09:01 | Discharge Plan ---
Discharge Plan Disposition: Home, Self Care Condition: Good Prescriptions: Clindamycin HCl [Clindamycin 300MG CAP] 600 mg PO BID 12 Days #48 capsule predniSONE [Deltasone] 20 mg PO DAILYWM 6 Days #9 tablet Saccharomyces Boulardii [Florastor] 250 mg PO BID 24 Days #48 capsule Diet: Regular Activity Restrictions: No Restrictions Shower Restrictions: No Driving Restrictions: No Weight Bearing: Full Weight Additional Instructions or Follow Up instructions: You were found to have pneumonia with positive blood cultures. You also had suspected sinusitis based on exam and your ongoing cough. You were given antibiotics and final testing showed Clindamycin would be the best medication for home use. You will also need to continue with a short course of steroids. All of your testing turned out well. Please see your PCP within the week. No Smoking: If you smoke, Please STOP! Call for help. Follow-up with: Suzan Robledo PA-C [Primary Care Provider] -
--- NOTE | 2017-05-20 09:09 | DISCHARGE SUMMARY ---
Discharge Summary Admit Date: 05/17/17 Discharge Date: 05/20/17 Discharging Provider: KARY Barnard Code Status: Attempt Resuscitation Condition at Discharge: Good Discharge Disposition: 01 Home, Self Care - DIAGNOSES Admission Diagnoses: Pneumonia, unspecified organism (J18.9) Fever, unspecified (R50.9) Cough (R05) Dyspnea, unspecified (R06.00) Discharge Diagnoses with Status of Each Condition: Pneumonia (J18.9) new on this admit, ongoing treatment to continue. Fever (R50.9) resolved. Cough (R05) ongoing, treatment to continue. JAYNE on CPAP (G47.33) chronic, stable. Gram positive sepsis (A41.89) new on this admission, ongoing treatment. AUGUSTINE (acute kidney injury) (N17.9) resolved, stable. - HPI History of Present Illness: Etienne Aguiar is a morbidly obese 57-year old white male with a past medical history of obesity, obstructive sleep apnea, chronic CPAP use, pneumonia, bilateral leg edema, asthma, hypertension, GERD, chronic vision loss, chronic hearing loss, anxiety, osteoarthritis, appendectomy and hiatal hernia repair. He was driven to the ED today by his after they had been to the [place] this morning. He participated at first, but soon had to go to the car to rest as he was "just too tired out and freezing". When his was finished in the [place], she came back to the car and didn't think he look well, so they came straight to the ED. Once in the ED imaging showed a possible right mid-lung pneumonia described as faint linear areas, an elevated WBC count, temp max of 38.0, tachycardic with a heart rate in the 130's, hypertensive with a blood pressure of 161/113, and profound rigors and chills. Labratory testing revealed hypokalemia with a potassium low at 2.8, BUN and Creatinine elevated at 28 and 1.9, and an elevated bilirubin. He has had associated symptoms such as anorexia, body aches, difficulty walking, increased bilateral lower leg edema , and a dry cough. Patient denies chest pain or pressure, abdominal pain, sinus pressure or ear pain, nausea or vomiting or insomnia. Patient will be admitted to inpatient for further treatment of pneumonia with IVFs, IV antibiotics and symptom control. - HOSPITAL COURSE Hospital Course: The following diagnoses were prevalent during this hospital stay: (1) Gram positive sepsis- A SOFA score was calculated at 4. A diagnosis of sepsis is made by this patient having evidence of organ dysfunction including AUGUSTINE, hypotension, temp max of 38.0, and a WBC count of >30. Preliminary blood culture results show gram positive cocci in chains, Group B strep. Home diuretics were held due to potential of worsening kidney injury. (2) AUGUSTINE (acute kidney injury)- Patient has a baseline creatinine of 1.3, creatinine max of 1.9. GFR was reduced at 39. He received 2 fluid boluses upon admission and gentle fluids overnight. CT for PE was changed to a VQ scan , which was negative for a PE. Patient's labs were monitored, nephrotoxins were avoided and the patient was watched for signs of worsening condition. (3) Fever- Patient had a temp max of 38.0 upon admission, and remained febrile for his first night of stay. This normalized with tylenol and the patient has not had any more episodes since admission. (4) Pneumonia- Imaging completed in the ED reveals pneumonia. Patient had signs of this illness with being febrile, having a cough and feeling generally exhausted. Patient was continuously monitored and given IV Clindamycin that was changed to PO on discharge. (5) Cough- Patient was noted to have fluid behind bilateral tympanic membranes upon admission exam. Patient also complained of post-nasal gtt and headache. He believes he has had a cold (URI) for the past week. Cough has been persistent since the time of admission. Patient was given Muscinex tabs, IV steroids that was changed to oral on discharge. (6) JAYNE on CPAP- Patient has a history of this and uses CPAP at home. His home unit was brought in by his . Patient was encouraged use his home unit and use medications to control cough. Disposition: Patient had finished his IV course and switched to oral by the time of discharge. He had increased energy and was anxious to get home. - ALLERGIES Allergies/Adverse Reactions: Allergies Allergy/AdvReac Type Severity Reaction Status Date / Time valsartan [From Diovan] Allergy Severe Edema Verified 05/18/17 08:29 codeine [Codeine] AdvReac Intermediate Anxiety Verified 05/17/17 13:14 - MEDICATIONS Home Medications: Ambulatory Orders Medication Instructions Recorded Confirmed Furosemide [Lasix] 60 mg PO DAILY 03/23/15 05/17/17 Potassium Chloride [Micro-K] 20 meq PO DAILY 03/23/15 05/17/17 Ranitidine HCl [Zantac] 300 mg PO DAILY 03/23/15 05/17/17 Temazepam 15 - 30 mg PO QPM PRN 08/30/16 05/17/17 Fluticasone/Salmeterol [Advair 1 puffs INH BID 05/17/17 05/17/17 250-50 Diskus] Montelukast [Singulair] 10 mg PO QPM 05/17/17 05/17/17 amLODIPine [Norvasc] 5 mg PO DAILY 05/17/17 05/17/17 cloNIDine HCl [Clonidine HCl] 0.1 mg PO BID 05/17/17 05/17/17 hydroCHLOROthiazide 25 mg PO DAILY 05/17/17 05/17/17 [Hydrochlorothiazide] Acetaminophen [Tylenol] 650 mg PO Q4HR PRN tablet 05/20/17 Clindamycin HCl [Clindamycin 300MG 600 mg PO BID 12 Days #48 capsule 05/20/17 CAP] Saccharomyces Boulardii [Florastor] 250 mg PO BID 24 Days #48 capsule 05/20/17 predniSONE [Deltasone] 20 mg PO DAILYWM 6 Days #9 tablet 05/20/17 - PHYSICAL EXAM AT DISCHARGE General Appearance: positive: No acute distress, Alert Eyes Bilateral: positive: Normal inspection, PERRL ENT: positive: ENT inspection nml, Pharynx nml, No signs of dehydration Neck: positive: Nml inspection, Thyroid nml, No JVD, Trachea midline, Other ( large neck circum.) Respiratory: positive: Chest non-tender, No respiratory distress, Wheezes ( slight) Cardiovascular: positive: Regular rate & rhythm, No murmur, No gallop, Decreased pulse(s) Peripheral Pulses: positive: 1+ Abdomen: positive: Non-tender, Nml bowel sounds, Other (obese, soft) Back: positive: Nml inspection Skin: positive: No rash, Warm, Dry Extremities: positive: Non-tender, Full ROM, Pedal edema (chronic edema, takes lasix at home) Neurologic/Psychiatric: positive: Oriented x3, CN's nml (2-12), Motor nml, Sensation nml, Mood/affect nml Reflexes: Bicep (R): 4+, Bicep (L): 4+ - LABS Result Diagrams: 05/20/17 05:27 05/20/17 05:27 - DIAGNOSTIC IMAGING Diagnostic Imaging Results: Final report reviewed Diagnostic Imaging Results Comments: EXAM: CHEST RADIOGRAPHY EXAM DATE: 05/17/2017 02:08 PM. CLINICAL HISTORY: Cough, rigors. COMPARISON: Chest x-ray 08/30/2016. TECHNIQUE: 2 views. FINDINGS: Lungs/Pleura: No pleural effusion or pneumothorax. Faint linear areas right midlung on the PA view which is not well-seen on the lateral view. Mediastinum: Heart and mediastinal contours are unremarkable. IMPRESSION: Faint right midlung densities on the PA view, probably diskoid atelectasis. EXAM: BILATERAL LOWER EXTREMITY VENOUS ULTRASOUND EXAM DATE: 05/19/2017 12:18 AM. CLINICAL HISTORY: Leg edema. COMPARISON: None. TECHNIQUE: Real-time sonographic vascular imaging was performed by the house fellow through the lower extremities utilizing both color-flow and Doppler spectral analysis. Multiple advertising sales representative static images were saved for review. FINDINGS: Right: Common Femoral Vein (CFV): Normal. CFV-GSV Junction: Normal. Profunda Femoral Vein (PFV): Normal. Femoral Vein (FV) Prox: Normal. Femoral Vein (FV) Mid: Normal but suboptimally seen. Femoral Vein (FV) Dist: Normal but suboptimally seen. Popliteal Vein: Normal. Posterior Tibial Veins: Normal but suboptimally seen. Peroneal Veins: Not seen. Left: Common Femoral Vein (CFV): Normal. CFV-GSV Junction: Normal. Profunda Femoral Vein (PFV): Normal. Femoral Vein (FV) Prox: Normal. Femoral Vein (FV) Mid: Normal but suboptimally seen. Femoral Vein (FV) Dist: Normal but suboptimally seen. Popliteal Vein: Normal. Posterior Tibial Veins: Normal but suboptimally seen. Peroneal Veins: Not seen. IMPRESSION: 1. No evidence for deep venous thrombosis bilaterally. 2. Calf veins and mid to distal bilateral femoral veins are suboptimally seen due to body habitus. EXAM: PERFUSION ONLY LUNG SCAN EXAM DATE: 05/19/2017 02:18 PM. CLINICAL HISTORY: Elevated d dimer, tachycardia. COMPARISON: Chest radiographically. 20 11/10/2017. TECHNIQUE: The patient was injected with 5.1 mCi of technetium 99m MAA intravenously and 8 standard perfusion images of the lungs were obtained. FINDINGS: Perfusion Scan: Symmetric and homogenous perfusion activity is present. No focal perfusion defects are evident. IMPRESSION: Negative for focal perfusion defect to suggest pulmonary embolism. ECHOCARDIOGRAM: Mild LV hypertrophy with an EF of 70-75%. No valve disease noted. - FOLLOW UP Follow Up: Disposition: Home, Self Care Condition: Good Prescriptions: Clindamycin HCl [Clindamycin 300MG CAP] 600 mg PO BID 12 Days #48 capsule predniSONE [Deltasone] 20 mg PO DAILYWM 6 Days #9 tablet Saccharomyces Boulardii [Florastor] 250 mg PO BID 24 Days #48 capsule Diet: Regular Activity Restrictions: No Restrictions Shower Restrictions: No Driving Restrictions: No Weight Bearing: Full Weight Additional Instructions or Follow Up instructions: You were found to have pneumonia with positive blood cultures. You also had suspected sinusitis based on exam and your ongoing cough. You were given antibiotics and final testing showed Clindamycin would be the best medication for home use. You will also need to continue with a short course of steroids. All of your testing turned out well. Please see your PCP within the week. - TIME SPENT Time Spent in Discharge (Minutes): 60
[2017-05-20 10:01] VITALS: BP 152/88
[2017-05-20] MEDS ORDERED: predniSONE 20 MG TABLET PO SCH ×2 (11:00→12:00)
== END 2017-05-20 10:26 | disposition home or self-care (01) | DRG 871 ==
LOC: ED 13:10 → MS3 14:53
PROVIDERS: ADMIT Nurse Practitioner; ATTEND Nurse Practitioner
DX: A40.1 Sepsis due to streptococcus, group B (principal); J18.9 Pneumonia, unspecified organism; N17.9 Acute kidney failure, unspecified; Z68.43 Body mass index [BMI] 50.0-59.9, adult; R65.20 Severe sepsis without septic shock; E87.6 Hypokalemia; E66.01 Morbid (severe) obesity due to excess calories; J45.909 Unspecified asthma, uncomplicated; G47.33 Obstructive sleep apnea (adult) (pediatric); F41.9 Anxiety disorder, unspecified; R60.0 Localized edema; I10 Essential (primary) hypertension; H54.7 Unspecified visual loss; H91.90 Unspecified hearing loss, unspecified ear; M19.90 Unspecified osteoarthritis, unspecified site; R35.1 Nocturia; Z79.51 Long term (current) use of inhaled steroids; Z79.899 Other long term (current) drug therapy
CPT/HCPCS: 36415; 71046; 78580; 80053; 80061; 80306; 80307; 80320; 81001; 81003; 82550; 83036; 83605; 83690; 83721; 83880; 84443; 84484; 85025; 85379; 85610; 85651; 86140; 87040; 87086; 87275; 87276; 93005; 93306; 93970; 94640; 96365; 96367; 96368; 99283; 99284

== ENCOUNTER 2017-05-29 08:00 | Outpatient (CLI) | payer OTHER ==
[2017-05-29 12:28] LABS: BASOPHILS % (AUTO) 0.4 %; EOSINOPHILS # (AUTO) 0.1 10^3/uL (0.0-0.7); EOSINOPHILS % (AUTO) 0.7 %; HGB - HEMOGLOBIN 16.5 g/dL (14.0-18.0); LYMPHOCYTES # (AUTO) 1.5 10^3/uL (1.5-3.5); LYMPHOCYTES % (AUTO) 11.8 %; MEAN CORPUSCULAR HEMOGLOBIN 30.9 pg (27.0-31.0); MEAN CORPUSCULAR HGB CONC 34.8 g/dL (32.0-36.0); MEAN CORPUSCULAR VOLUME 88.7 fL (80.0-94.0); MEAN PLATELET VOLUME 7.9 fL (7.4-11.4); MONOCYTES # (AUTO) 1.1 10^3/uL (0.0-1.0); MONOCYTES % (AUTO) 8.5 %; NEUTROPHILS # (AUTO) 10.3 10^3/uL (1.5-6.6); NEUTROPHILS % (AUTO) 78.6 %; PLT - PLATELET COUNT 216 10^3/uL (130-450); RED BLOOD COUNT 5.35 10^6/uL (4.70-6.10); RED CELL DISTRIBUTION WIDTH 14.4 % (12.0-15.0)
[2017-05-29 13:00] LABS: PLATELET ESTIMATE, MANUAL NORMAL (130-450,000) (NORMAL); PLATELET MORPHOLOGY NORMAL APPEARANCE (NORMAL); RBC MORPHOLOGY (MULTIPLE) NORMAL APPEARANCE (NORMAL)
== END 2017-05-29 08:01 | disposition home or self-care (01) ==
LOC: LAB.WCP 08:00
PROVIDERS: ATTEND Family Medicine
DX: D72.829 Elevated white blood cell count, unspecified (principal)
CPT/HCPCS: 36415; 85025

== ENCOUNTER 2017-07-10 21:14 | Emergency (ER) | payer OTHER ==
--- NOTE | 2017-07-10 22:23 | ED Physician Documentation ---
PD HPI URI - Stated complaint Stated Complaint: SOA/COUGH - Chief complaint Chief Complaint: Resp - History obtained from History obtained from: Patient - History of Present Illness Timing - onset: How many days ago (few) Timing duration: Days (few days of cough and dyspnea, with productive cough and feverish feeling today. Has been having leg edema presumed due to new BP med and saw PCP today about that. Was not having much cough/dyspnea as of yet at that time. This has increased through the day today.) Timing details: Gradual onset, Still present Associated symptoms: Chills, Nasal congestion, Swollen nodes, Productive cough, Dyspnea. No: Fever, Chest pain, NVD, Bilateral edema Contributing factors: COPD / asthma. No: Sick contact, Travel, Immunocompromised Similar symptoms before: Diagnosis (had pneumonia in March and again April with Rx abx and inhaler at those times. He says cough never really went all the waya way, and he is having increased cough and wheezing the past few days.) Recently seen: Clinic Review of Systems Constitutional: reports: Chills, Myalgias. denies: Fever Nose: denies: Rhinorrhea / runny nose, Congestion Throat: denies: Sore throat Cardiac: reports: Pedal edema (for couple months, worsening). denies: Chest pain / pressure, Palpitations, Calf pain Respiratory: reports: Dyspnea, Cough. denies: Wheezing GI: denies: Abdominal Pain, Nausea, Vomiting, Diarrhea : denies: Dysuria, Frequency Skin: denies: Rash, Lesions Musculoskeletal: reports: Extremity swelling. 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 HEENT: Chronic vision loss, Chronic sinusitis Psych: Anxiety, Eating disorder Musculoskeletal: Osteoarthritis Derm: None - Past Surgical History Past Surgical History: Yes General: Appendectomy, Hiatal hernia repair - Present Medications Home Medications: Ambulatory Orders Medication Instructions Recorded Confirmed Furosemide [Lasix] 60 mg PO DAILY 03/23/15 05/17/17 Potassium Chloride [Micro-K] 20 meq PO DAILY 03/23/15 05/17/17 Ranitidine HCl [Zantac] 300 mg PO DAILY 03/23/15 05/17/17 Temazepam 15 - 30 mg PO QPM PRN 08/30/16 05/17/17 Fluticasone/Salmeterol [Advair 1 puffs INH BID 05/17/17 05/17/17 250-50 Diskus] Montelukast [Singulair] 10 mg PO QPM 05/17/17 05/17/17 amLODIPine [Norvasc] 5 mg PO DAILY 05/17/17 05/17/17 cloNIDine HCl [Clonidine HCl] 0.1 mg PO BID 05/17/17 05/17/17 hydroCHLOROthiazide 25 mg PO DAILY 05/17/17 05/17/17 [Hydrochlorothiazide] Acetaminophen [Tylenol] 650 mg PO Q4HR PRN tablet 05/20/17 Clindamycin HCl [Clindamycin 300MG 600 mg PO BID 12 Days #48 capsule 05/20/17 CAP] Saccharomyces Boulardii [Florastor] 250 mg PO BID 24 Days #48 capsule 05/20/17 predniSONE [Deltasone] 20 mg PO DAILYWM 6 Days #9 tablet 05/20/17 Albuterol 2.5 mg INH Q4H PRN #30 neb 07/10/17 Dexamethasone [Decadron] 4 mg PO DAILY #5 tablet 07/10/17 Doxycycline Monohydrate 100 mg PO BID #14 tablet 07/10/17 HYDROcod/ACETAM 5/325 [Dexter 5/325] 1 tab PO Q6H PRN #15 tablet 07/10/17 - Allergies Allergies/Adverse Reactions: Allergies Allergy/AdvReac Type Severity Reaction Status Date / Time valsartan [From Diovan] Allergy Severe Edema Verified 05/18/17 08:29 codeine [Codeine] AdvReac Intermediate Anxiety Verified 05/17/17 13:14 - Social History Does the pt smoke?: No Smoking Status: Never smoker Does the pt drink ETOH?: Yes Does the pt have substance abuse?: No - Family History Family history: reports: Non contributory - Immunizations Immunizations are current?: Yes - POLST Patient has POLST: No POLST Status: Full Code PD ED PE NORMAL - Vitals Vital signs reviewed: Yes - General General: Alert and oriented X 3, No acute distress, Well developed/nourished - HEENT HEENT: Ears normal, Pharynx benign - Neck Neck: Supple, no meningeal sign, No adenopathy, No JVD, No bruit - Cardiac Cardiac: RRR, No murmur - Respiratory Respiratory: No respiratory distress. No: Clear bilaterally (scattered wheezing , without coarse sounds. No accessory muscle use. ) - Abdomen Abdomen: Soft, Non tender - Male Male : Deferred - Rectal Rectal: Deferred - Back Back: No CVA TTP - Derm Derm: Normal color, Warm and dry - Extremities Extremities: No tenderness to palpate, Normal ROM s pain, No calf tenderness / cord, Other (2+ edema in both legs to just below knees. ) - Neuro Neuro: Alert and oriented X 3 Eye Opening: Spontaneous Motor: Obeys Commands Verbal: Oriented GCS Score: 15 - Psych Psych: Normal mood, Normal affect Results - Vitals Vitals: Vital Signs - 24 hr 07/10/17 07/10/17 07/10/17 21:23 21:44 22:16 Temperature 36.6 C Heart Rate 91 94 99 Respiratory 20 20 Rate Blood Pressure 199/111 H 175/112 H 156/100 H O2 Saturation 97 97 98 07/10/17 22:40 Temperature Heart Rate 90 Respiratory 18 Rate Blood Pressure O2 Saturation Oxygen O2 Source Room air - EKG (time done) 21:26 Rate: Rate (enter#) (91) Rhythm: NSR [place]: Normal Intervals: Normal ND QRS: Normal Ischemia: Normal ST segments. No: ST elevation c/w ischemia, ST depression, T wave inversion - Labs Labs: Laboratory Tests 07/10/17 07/10/17 07/10/17 22:48 22:48 22:48 WBC 12.1 H RBC 4.85 Hgb 14.9 Hct 42.9 MCV 88.6 MCH 30.7 MCHC 34.6 RDW 14.7 Plt Count 170 MPV 7.5 Neut # 9.6 H Lymph # 1.3 L [place] # 0.9 Eos # 0.2 Baso # 0.1 Absolute Nucleated RBC 0.00 Nucleated RBC % 0.0 Sodium 137 Potassium 2.9 L Chloride 97 L Carbon Dioxide 29 Anion Gap 11.0 BUN 25 H Creatinine 1.6 H Estimated GFR (MDRD) 45 L Glucose 113 H Calcium 9.0 Magnesium 2.0 Total Bilirubin 1.0 AST 28 ALT 38 Alkaline Phosphatase 63 B-Natriuretic Peptide 12 Total Protein 7.2 Albumin 4.6 Globulin 2.6 Albumin/Globulin Ratio 1.8 Lipase 30 - Rads (name of study) chest Radiology: Prelim report reviewed, EMP read contemporaneously PD MEDICAL DECISION MAKING - ED course Complexity details: reviewed old records, reviewed results (no signs of CHF nor [place]. Potassium is low and given PO supplement. He says he takes potassium already and is encouraged to increase dose. ), re-evaluated patient (feeling better after neb treatment, and given meds for cough. ), considered differential , d/w patient Departure - Departure Disposition: Home, Self Care Clinical Impression: Cough Dyspnea Qualifiers: Dyspnea type: shortness of breath Qualified Code(s): R06.02 - Shortness of breath; R06.00 - Dyspnea, unspecified; R06.01 - Orthopnea Exacerbation of asthma Qualifiers: Asthma severity: mild Asthma persistence: intermittent Qualified Code(s): J45.21 - Mild intermittent asthma with (acute) exacerbation Bronchitis, acute Qualifiers: Bronchitis organism: unspecified organism Qualified Code(s): J20.9 - Acute bronchitis, unspecified Clinical Impression: (Ruled Out): Pneumonia Condition: Stable Record reviewed to determine appropriate education?: Yes Instructions: ED Upper Resp Infec Abx Tx Follow-Up: Glenis Lord PA-C [Primary Care Provider] - Prescriptions: Albuterol 2.5 mg INH Q4H PRN #30 neb PRN Reason: Wheezing Dexamethasone [Decadron] 4 mg PO DAILY #5 tablet Doxycycline Monohydrate 100 mg PO BID #14 tablet HYDROcod/ACETAM 5/325 [Dexter 5/325] 1 tab PO Q6H PRN #15 tablet PRN Reason: Pain Comments: Continue usual medications including the start of the new blood pressure medicine prescribed by your provider. You do have the leg edema but does not appear to be any fluid accumulation within the lungs or signs of heart injury or heart stress. Your shortness of breath would seem to be coming from the cough and bronchial infection along with flaring up some asthma. Use your albuterol inhaler or nebulizer 4 times a day for the next 7-10 days. Decadron steroid for inflammation of the airways daily for 5 more days. Doxycycline twice a day for the infection. Add hydrocodone if needed for significant cough or pains. Your potassium is low as well, so continue dose of potassium at home, and increase it some for the next few days. Follow-up with your primary care next week, call for an appointment. Return sooner if worsening.
[2017-07-10] MEDS ORDERED: BENZONATATE 100 MG CAPSULE PO STA (22:34)
[2017-07-10] MEDS ORDERED: DEXAMETHASONE 10 MG/ML VIAL PO STA (22:34)
[2017-07-10] MEDS ORDERED: ALBUTEROL NEB 2.5 MG/3 ML INH STA (22:34)
[2017-07-10] MEDS ORDERED: CHERRY SYRUP 10 ML UDC PO ONE (22:50)
[2017-07-10 23:00] LABS: BASOPHILS # (AUTO) 0.1 10^3/uL (0.0-0.1); BASOPHILS % (AUTO) 0.7 %; EOSINOPHILS # (AUTO) 0.2 10^3/uL (0.0-0.7); EOSINOPHILS % (AUTO) 1.8 %; HGB - HEMOGLOBIN 14.9 g/dL (14.0-18.0); LYMPHOCYTES # (AUTO) 1.3 10^3/uL (1.5-3.5); LYMPHOCYTES % (AUTO) 10.7 %; MEAN CORPUSCULAR HEMOGLOBIN 30.7 pg (27.0-31.0); MEAN CORPUSCULAR HGB CONC 34.6 g/dL (32.0-36.0); MEAN CORPUSCULAR VOLUME 88.6 fL (80.0-94.0); MEAN PLATELET VOLUME 7.5 fL (7.4-11.4); MONOCYTES # (AUTO) 0.9 10^3/uL (0.0-1.0); MONOCYTES % (AUTO) 7.1 %; NEUTROPHILS # (AUTO) 9.6 10^3/uL (1.5-6.6); NEUTROPHILS % (AUTO) 79.7 %; PLT - PLATELET COUNT 170 10^3/uL (130-450); RED BLOOD COUNT 4.85 10^6/uL (4.70-6.10); RED CELL DISTRIBUTION WIDTH 14.7 % (12.0-15.0); WHITE BLOOD COUNT 12.1 x10^3/uL (4.8-10.8)
--- NOTE | 2017-07-10 23:01 | XRAY Preliminary Report ---
Exam: XR CHEST 2 VIEW X-RAY IMPRESSION: No acute intrathoracic plain film abnormality. [facility] SITE ID: [id number]
--- NOTE | 2017-07-10 23:02 | XRAY Report ---
EXAM: CHEST RADIOGRAPHY EXAM DATE: 07/10/2017 10:43 PM. CLINICAL HISTORY: Cough, dyspnea. COMPARISON: 05/17/2017. TECHNIQUE: 2 views. FINDINGS: Lungs/Pleura: No focal opacities evident. No pleural effusion. No pneumothorax. Normal volumes. Mediastinum: Heart and mediastinal contours are unremarkable. Other: None. IMPRESSION: No acute intrathoracic plain film abnormality. [facility] Referring Provider Line: [phone] SITE ID: [id number]
[2017-07-10 23:15] LABS: ALBUMIN 4.6 g/dL (3.2-5.5); ALBUMIN/GLOBULIN RATIO 1.8 (1.0-2.2); CREATININE 1.6 mg/dL (0.6-1.2); TOTAL PROTEIN 7.2 g/dL (6.7-8.2)
[2017-07-10] MEDS ORDERED: DOXYCYCLINE 100 MG TABLET PO STA (23:16)
[2017-07-10] MEDS ORDERED: FUROSEMIDE 20 MG TABLET PO STA (23:20)
[2017-07-10] MEDS ORDERED: POTASSIUM BICARB 25 MEQ TABLET PO STA (23:25)
[2017-07-10] MEDS ORDERED: HYDROcod/ACETAM 5/325 MG TABLET PO STA (23:39)
[2017-07-10 23:50] VITALS: BP 131/98
== END 2017-07-10 23:52 | disposition home or self-care (01) ==
LOC: ED 21:14
DX: J45.21 Mild intermittent asthma with (acute) exacerbation (principal); J20.9 Acute bronchitis, unspecified; I10 Essential (primary) hypertension; G47.30 Sleep apnea, unspecified; K21.9 Gastro-esophageal reflux disease without esophagitis; M19.90 Unspecified osteoarthritis, unspecified site
CPT/HCPCS: 36415; 71046; 80053; 83690; 83735; 83880; 85025; 93005; 94640; 99283; 99284; A9270

== ENCOUNTER 2017-07-14 10:40 | Outpatient (CLI) | payer OTHER ==
[2017-07-14 13:30] LABS: CALCIUM 8.8 mg/dL (8.5-10.3); CREATININE 0.8 mg/dL (0.6-1.2)
== END 2017-07-14 10:41 | disposition home or self-care (01) ==
LOC: LAB.WCP 10:40
PROVIDERS: ATTEND Physician Assistant Medical
DX: E87.6 Hypokalemia (principal)
CPT/HCPCS: 36415; 80048

== ENCOUNTER 2017-10-08 08:00 | Outpatient (CLI) | payer OTHER ==
[2017-10-08 12:37] LABS: CALCIUM 9.4 mg/dL (8.5-10.3)
[2017-10-08 12:40] LABS: BASOPHILS # (AUTO) 0.1 10^3/uL (0.0-0.1); BASOPHILS % (AUTO) 0.8 %; EOSINOPHILS # (AUTO) 0.2 10^3/uL (0.0-0.7); EOSINOPHILS % (AUTO) 2.7 %; HGB - HEMOGLOBIN 14.7 g/dL (14.0-18.0); LYMPHOCYTES # (AUTO) 1.4 10^3/uL (1.5-3.5); LYMPHOCYTES % (AUTO) 21.3 %; MEAN CORPUSCULAR HEMOGLOBIN 31.8 pg (27.0-31.0); MEAN CORPUSCULAR HGB CONC 35.5 g/dL (32.0-36.0); MEAN CORPUSCULAR VOLUME 89.7 fL (80.0-94.0); MEAN PLATELET VOLUME 8.9 fL (7.4-11.4); MONOCYTES # (AUTO) 0.5 10^3/uL (0.0-1.0); MONOCYTES % (AUTO) 8.3 %; NEUTROPHILS # (AUTO) 4.3 10^3/uL (1.5-6.6); NEUTROPHILS % (AUTO) 66.9 %; PLT - PLATELET COUNT 162 10^3/uL (130-450); RED BLOOD COUNT 4.63 10^6/uL (4.70-6.10); RED CELL DISTRIBUTION WIDTH 13.8 % (12.0-15.0); WHITE BLOOD COUNT 6.4 x10^3/uL (4.8-10.8)
[2017-10-08 13:00] LABS: CREATININE 1.8 mg/dL (0.6-1.2)
[2017-10-08 13:07] LABS: RBC MORPHOLOGY (MULTIPLE) 1+ ANISOCYTOSIS (NORMAL)
== END 2017-10-08 08:01 ==
LOC: LAB.WCP 08:00
PROVIDERS: ATTEND Physician Assistant Medical
DX: I10 Essential (primary) hypertension (principal); D72.829 Elevated white blood cell count, unspecified
CPT/HCPCS: 36415; 80048; 85025

== ENCOUNTER 2017-10-29 09:56 | Outpatient (CLI) | payer OTHER | END 2017-10-29 09:57 | disposition home or self-care (01) | LOC: SC 09:56 | PROVIDERS: ATTEND Nurse Practitioner Family | DX: G47.33 Obstructive sleep apnea (adult) (pediatric) (principal) | CPT/HCPCS: 99212; 99214 ==

== ENCOUNTER 2018-05-03 07:24 | Emergency (ER) | payer OTHER ==
--- NOTE | 2018-05-03 07:56 | ED Physician Documentation ---
History of Present Illness - Stated complaint Stated Complaint: RT LEG SWELLING - Chief complaint Chief Complaint: Ext Problem - History obtained from History obtained from: Patient - History of Present Illness Timing: Yesterday Pain level max: 2 Pain level now: 1 - Additonal information Additional information: 58-year-old male states that yesterday he noticed redness and swelling to the right lower calf. States it is painful when he touches it. He was seen here recently for a viral upper respiratory infection. He states he is no longer having fevers. Does not recall any injury or wearing any tight clothing to the right lower extremity. States does have a history of it turning red from swelling. Nothing makes it better. 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 HEENT: Chronic vision loss, Chronic sinusitis Psych: Anxiety, Eating disorder Musculoskeletal: Osteoarthritis Derm: None - Past Surgical History Past Surgical History: Yes General: Appendectomy, Hiatal hernia repair - Present Medications Home Medications: Ambulatory Orders Medication Instructions Recorded Confirmed Furosemide [Lasix] 60 mg PO DAILY 03/23/15 05/01/18 Fluticasone/Salmeterol [Advair 1 puffs INH BID 05/17/17 05/01/18 250-50 Diskus] Montelukast [Singulair] 10 mg PO QPM 05/17/17 05/01/18 amLODIPine [Norvasc] 5 mg PO DAILY 05/17/17 05/01/18 Albuterol 2.5 mg INH Q4H PRN #30 neb 07/10/17 05/01/18 Ibuprofen [Motrin] 800 mg PO Q8H PRN #30 tablet 05/01/18 Ondansetron Odt [Zofran] 4 mg TL Q6H PRN #10 tablet 05/01/18 traMADol [Ultram] 2 tab PO ONCE 05/01/18 05/01/18 Cephalexin [Keflex] 1,000 mg PO Q6H #80 capsule 05/03/18 Sulfamethox/Trimeth 800/160 2 each PO BID #40 tablet 05/03/18 [Bactrim Ds 800/160] - Allergies Allergies/Adverse Reactions: Allergies Allergy/AdvReac Type Severity Reaction Status Date / Time codeine [Codeine] AdvReac Intermediate Anxiety Verified 05/01/18 15:43 - Social History Does the pt smoke?: No Smoking Status: Never smoker Does the pt drink ETOH?: Yes Does the pt have substance abuse?: No - Immunizations Immunizations are current?: Yes - POLST Patient has POLST: No POLST Status: Full Code PD ED PE NORMAL - Vitals Vital signs reviewed: Yes - General General: Alert and oriented X 3, No acute distress, Well developed/nourished - HEENT HEENT: Moist mucous membranes - Neck Neck: Supple, no meningeal sign - Cardiac Cardiac: RRR - Respiratory Respiratory: No respiratory distress, Clear bilaterally - Abdomen Abdomen: Soft, Non tender, Non distended - Derm Derm: Warm and dry - Extremities Extremities: Other (2+ bilateral pitting edema. There is circumferential erythema to the right calf, there is no warmth. There is mild tenderness. No lymphangitis) - Neuro Neuro: Alert and oriented X 3 - Psych Psych: Normal mood, Normal affect Results - Vitals Vitals: Vital Signs - 24 hr 05/03/18 05/03/18 07:33 10:31 Temperature 36.2 C L Heart Rate 77 67 Respiratory 20 18 Rate Blood Pressure 144/104 H 149/95 H O2 Saturation 98 100 Oxygen O2 Source Room air - Labs Labs: Laboratory Tests 05/03/18 05/03/18 05/03/18 08:03 08:03 08:03 WBC 13.2 H RBC 4.66 L Hgb 14.6 Hct 42.0 MCV 90.0 MCH 31.2 H MCHC 34.7 RDW 13.9 Plt Count 133 MPV 7.6 Neut # (Auto) 12.0 H Lymph # (Auto) 0.7 L [place] # (Auto) 0.5 Eos # (Auto) 0.0 Baso # (Auto) 0.0 Absolute Nucleated RBC 0.00 Nucleated RBC % 0.0 ESR 18 Sodium 132 L Potassium 3.5 Chloride 99 L Carbon Dioxide 25 Anion Gap 8.0 BUN 32 H Creatinine 1.8 H Estimated GFR (MDRD) 39 L Glucose 161 H Calcium 8.0 L C-Reactive Protein 05/03/18 08:03 WBC RBC Hgb Hct MCV MCH MCHC RDW Plt Count MPV Neut # (Auto) Lymph # (Auto) [place] # (Auto) Eos # (Auto) Baso # (Auto) Absolute Nucleated RBC Nucleated RBC % ESR Sodium Potassium Chloride Carbon Dioxide Anion Gap BUN Creatinine Estimated GFR (MDRD) Glucose Calcium C-Reactive Protein 19.7 H - Rads (name of study) Right lower extremity duplex ultrasound Radiology: Prelim report reviewed, EMP read contemporaneously, See rad report (No evidence of DVT) PD MEDICAL DECISION MAKING - ED course Complexity details: reviewed results, re-evaluated patient, considered differential, d/w patient ED course: Patient is a 58-year-old male who presents to the emergency department with what appears to be cellulitis of the right lower extremity. He is very well- appearing, nontoxic. Afebrile. Given Rocephin and will place on Bactrim. Negative ultrasound. No evidence of sepsis. Patient counseled regarding signs and symptoms for which I believe and urgent re-evaluation would be necessary. Patient with good understanding of and agreement to plan and is comfortable going home at this time This document was made in part using voice recognition software. While efforts are made to proofread this document, sound alike and grammatical errors may occur. Departure - Departure Disposition: 01 Home, Self Care Clinical Impression: Cellulitis Qualifiers: Site of cellulitis: extremity Site of cellulitis of extremity: lower extremity Laterality: right Qualified Code(s): L03.115 - Cellulitis of right lower limb Condition: Good Instructions: ED Infec Skin Cellulitis Follow-Up: Glenis Lord PA-C [Primary Care Provider] - Within 3 Days (for wound check) Prescriptions: Cephalexin [Keflex] 1,000 mg PO Q6H #80 capsule Sulfamethox/Trimeth 800/160 [Bactrim Ds 800/160] 2 each PO BID #40 tablet Comments: Take all antibiotics until gone. Return if you worsen. This should start to improve over the next 24 hours. Discharge Date/Time: 05/03/18 10:31
[2018-05-03 08:09] LABS: BASOPHILS % (AUTO) 0.2 %; EOSINOPHILS % (AUTO) 0.1 %; HGB - HEMOGLOBIN 14.6 g/dL (14.0-18.0); LYMPHOCYTES # (AUTO) 0.7 10^3/uL (1.5-3.5); LYMPHOCYTES % (AUTO) 5.3 %; MEAN CORPUSCULAR HEMOGLOBIN 31.2 pg (27.0-31.0); MEAN CORPUSCULAR HGB CONC 34.7 g/dL (32.0-36.0); MEAN PLATELET VOLUME 7.6 fL (7.4-11.4); MONOCYTES # (AUTO) 0.5 10^3/uL (0.0-1.0); MONOCYTES % (AUTO) 3.5 %; NEUTROPHILS % (AUTO) 90.9 %; PLT - PLATELET COUNT 133 10^3/uL (130-450); RED BLOOD COUNT 4.66 10^6/uL (4.70-6.10); RED CELL DISTRIBUTION WIDTH 13.9 % (12.0-15.0); WHITE BLOOD COUNT 13.2 x10^3/uL (4.8-10.8)
[2018-05-03 08:17] LABS: CREATININE 1.8 mg/dL (0.6-1.2)
--- NOTE | 2018-05-03 09:09 | Ultrasound Report ---
Reason: R calf swelling, pain Procedure Date: 05/03/2018 Accession Number: [id number] / [id number] Procedure: US - Duplex Ext Veins Right CPT Code: FULL RESULT: EXAM: RIGHT LOWER EXTREMITY VENOUS ULTRASOUND EXAM DATE: 05/03/2018 08:48 AM. CLINICAL HISTORY: Right calf pain, swelling. COMPARISON: DUPLEX EXT VEINS RIGHT 05/19/2017 12:18 AM. TECHNIQUE: Real-time sonographic vascular imaging was performed by the manager psychology through the lower extremity utilizing both color-flow and Doppler spectral analysis. Multiple commercial representative static images were saved for review. FINDINGS: Common Femoral Vein (CFV): Normal. CFV-GSV Junction: Normal. Profunda Femoral Vein (PFV): Normal. Femoral Vein (FV) Prox: Normal. Femoral Vein (FV) Mid: Normal. Femoral Vein (FV) Dist: No filling defects although not optimally visualized. Popliteal Vein: No filling defects although not optimally visualized. Posterior Tibial Veins: No filling defects although not optimally visualized. Peroneal Veins: Not well visualized. Other: Subcutaneous edema noted. IMPRESSION: 1. No evidence of right lower extremity deep venous thrombosis noting that portions of the right distal superficial femoral, popliteal and posterior tibial veins are not optimally visualized. [facility]
[2018-05-03] MEDS ORDERED: cefTRIAXone 1 GM VIAL IM STA (09:33)
[2018-05-03] MEDS ORDERED: SULFAMETH/TRIMETH DS 800/160 MG TABLET PO STA (09:33)
[2018-05-03] MEDS ORDERED: LIDOCAINE 1% 2 ML VIAL ONE ×2 (09:46→10:00)
[2018-05-03 10:32] VITALS: BP 149/95
== END 2018-05-03 10:31 | disposition home or self-care (01) ==
LOC: ED 07:24
DX: L03.115 Cellulitis of right lower limb (principal); I10 Essential (primary) hypertension
CPT/HCPCS: 36415; 80048; 85025; 85651; 86140; 93971; 96372; 99283; A9270

== ENCOUNTER 2018-07-13 09:04 | Outpatient (CLI) | payer OTHER ==
[2018-07-13 14:17] LABS: BASOPHILS # (AUTO) 0.1 10^3/uL (0.0-0.1); BASOPHILS % (AUTO) 0.9 %; EOSINOPHILS # (AUTO) 0.2 10^3/uL (0.0-0.7); EOSINOPHILS % (AUTO) 2.2 %; HGB - HEMOGLOBIN 15.7 g/dL (14.0-18.0); LYMPHOCYTES # (AUTO) 1.1 10^3/uL (1.5-3.5); LYMPHOCYTES % (AUTO) 16.1 %; MEAN CORPUSCULAR HEMOGLOBIN 31.3 pg (27.0-31.0); MEAN CORPUSCULAR HGB CONC 35.1 g/dL (32.0-36.0); MEAN CORPUSCULAR VOLUME 89.2 fL (80.0-94.0); MEAN PLATELET VOLUME 8.2 fL (7.4-11.4); MONOCYTES # (AUTO) 0.5 10^3/uL (0.0-1.0); MONOCYTES % (AUTO) 7.5 %; NEUTROPHILS % (AUTO) 73.3 %; PLT - PLATELET COUNT 162 10^3/uL (130-450); RED BLOOD COUNT 5.03 10^6/uL (4.70-6.10); RED CELL DISTRIBUTION WIDTH 14.2 % (12.0-15.0); WHITE BLOOD COUNT 6.9 x10^3/uL (4.8-10.8)
[2018-07-13 15:04] LABS: ALBUMIN 4.5 g/dL (3.2-5.5); ALKALINE PHOSPHATASE 54 IU/L (42-121); ALT ALANINE AMINOTRANSFERASE 31 IU/L (10-60); AST ASPARTATE AMINOTRANSFERASE 25 IU/L (10-42); BILIRUBIN,TOTAL 1.2 mg/dL (0.2-1.0); BUN - BLOOD UREA NITROGEN 26 mg/dL (6-20); CALCIUM 9.1 mg/dL (8.5-10.3); CARBON DIOXIDE - CO2 23 mmol/L (21-32); CHLORIDE 106 mmol/L (101-111); CHOL/HDL RATIO 4.6 (<5.0); CHOLESTEROL 161 mg/dL; CREATININE 1.4 mg/dL (0.6-1.2); GFR - MDRD 52 (>89); GLUCOSE 93 mg/dL (70-100); HDL CHOLESTEROL 35 mg/dL; LDL CHOLESTEROL,CALCULATED 109 mg/dL; LDL/HDL RATIO 3.1 (<3.6); SODIUM 136 mmol/L (135-145); TOTAL PROTEIN 6.8 g/dL (6.7-8.2); VLDL CHOLESTEROL 17 mg/dL
== END 2018-07-13 09:05 | disposition home or self-care (01) ==
LOC: LAB.WCP 09:04
PROVIDERS: ATTEND Physician Assistant Medical
DX: E78.5 Hyperlipidemia, unspecified (principal); Z12.5 Encounter for screening for malignant neoplasm of prostate; E04.1 Nontoxic single thyroid nodule; D72.829 Elevated white blood cell count, unspecified
CPT/HCPCS: 36415; 80053; 80061; 83721; 84153; 84443; 85025

== ENCOUNTER 2018-11-10 12:47 | Outpatient (CLI) | payer OTHER ==
[2018-11-10 13:48] VITALS: BP 138/80
--- NOTE | 2018-11-10 13:48 | SLEEP CARE CONSULTATION ---
Information from patient questionnaire entered by Martha Berumen. I have reviewed and concur with the information entered by Martha Berumen. This document represents the service I personally performed and the decisions made by me, Vika Santillan, RN, MSN, TAR DISTILLATION SUPERVISOR. History of Present Illness Previous diagnosis: Severe, Obstructive Sleep Apnea-Hypopnea Syndrome AHI: 41.7 Reason for CPAP/BiPAP follow up: annual Equipment type: CPAP Equipment obtained from: [employer] Mask style: Full face ([place] View) Mask brand: Respironics Backup mask available: Yes (Air Fit but causes nasal bridges) Last cushion change: last week. HPI additional information: He was unable to get his supplies from [place] as had hoped. Thus he called here and informed and transferred to [facility]. However, he is also getting equipment from [facility] and actually likes their mask choice better. He would like to stay with [facility] and stop [facility]. CPAP Compliance Data - Data Reviewed with Patient Average duration of nightly device use: 6.45 Compliance rate %: 100 Current pressure setting (cmH2O): 9 Humidity settin Average residual AHI: 0.8 Average large leak: 43 secs Subjective Patient concerns: reports: mask discomfort (from Air Fit being sent by [facility]). denies: aerophagia, air blowing in eyes, mask leak noise, condensation in mask/hose, nasal congestion, dry mouth, nose, throat, epistaxis Observed to snore while using device: No On therapy, patient: reports: sleeping better, awakening more refreshed, being more awake and alert during the day, more rested overall. denies: drowsiness while driving Initial [place] Sleepiness Scale score: 15 Current [place] Sleepiness Scale score: 6 Allergies and Home Medications Known drug allergies: No Home medication list reviewed: Yes Allergy and home medication list: Aspirin EC DR 81mg tab one daily ProAir HFA 108 (90 base) Two puffs up to every 4hrs prn wheeze Ranitidine HCL 300mg tab one daily Furosemide 20mg tab one daily in the am Temazepam 15mg cap one-two daily at bedtime prn Losartan Potassium 25mg tab one daily Montelukast Sodium 10mg tab one daily for allergies/asthma prn Uloric 40mg tab one daily Advair Diskus 500-50 mcg/dose inh powd One inhalation twice daily prn Albuterol Sulfate (2.5mg/3ml) 0.083% One vial via nebulizer q4hr prn Spironolactone 25mg tab one twice daily Review of Systems Review of systems same as previous: Yes Physical Exam Blood Pressure: 138/80 Cuff size: long Heart Rate: 71 O2 Saturation: 97 Height: 5 ft 8 in Weight (kg): 150.411 kg Body Mass Index: 50.4 BMI Classification: Class 3 Impression and Plan 1. Obstructive Sleep Apnea-Hypopnea Syndrome, severe, with good treatment compliance and good apnea control. On CPAP therapy, the patient has better sleep quality and is more rested overall. Since he has gained weight again, he was advised how that could affect his CPAP pressure requirements if continued. He is advised to lose weight. I explained how the with assistance of a diet consultation can help his achieve his best weight loss outcome. He just had a annual with PCP and is advised to contact for referral. I also advised him of the health risks of his morbid obestity BMI and we reviewed the BMI chart. He was 259.8 pounds in 2016 which he feels can be his first goal. I explained that his weight loss will also reduce blood pressure. In addition I explained how the risks of obesity can be modified by increase in activity. Patient's apnea severity and rationale for treatment to reduce apnea, improve sleep quality and reduce cardiovascular and cerebrovascular events was reviewed. I also reviewed the benefit of consistent device use of CPAP for hypertension. He asked about updating his CPAP and it appears not due till his next annual. If device starts making noise, he is advised to contact to check if can update the device earlier. * Continue CPAP pressure at 9 cmH2O * Attempt to lose weight * Follow up with PCP for diet consultation. * Notify me if snoring with mask or feeling that the pressure is too much or too little * Return for follow up in 1 year , or sooner if concerns arise I spent 100% of this 30 minute visit face to face with the patient with greater than 50% of this was spent time counseling the patient and coordination of care.
== END 2018-11-10 12:48 | disposition home or self-care (01) ==
LOC: SC 12:47
PROVIDERS: ATTEND Nurse Practitioner Family
DX: G47.33 Obstructive sleep apnea (adult) (pediatric) (principal)
CPT/HCPCS: 99212; 99214

== ENCOUNTER 2019-02-02 14:00 | Outpatient (CLI) | payer OTHER | END 2019-02-02 23:59 | disposition home or self-care (01) | LOC: LAB.R 14:00 | PROVIDERS: ATTEND Physician Assistant | DX: J02.9 Acute pharyngitis, unspecified (principal) | CPT/HCPCS: 87070 ==

== ENCOUNTER 2019-02-03 15:20 | Emergency (ER) | payer OTHER ==
--- NOTE | 2019-02-03 15:58 | XRAY Report ---
Reason: cough Procedure Date: 02/03/2019 Accession Number: [id number] / [id number] Procedure: XR - Chest 2 View X-Ray CPT Code: 41617 Final Report FULL RESULT: EXAM: CHEST RADIOGRAPHY EXAM DATE: 02/03/2019 03:30 PM. CLINICAL HISTORY: Cough. COMPARISON: CHEST 2 VIEW 05/01/2018 1:49 PM. TECHNIQUE: 2 views. FINDINGS: Lungs/Pleura: No focal opacities evident. No pleural effusion. No pneumothorax. Normal volumes. Mediastinum: Heart and mediastinal contours are unremarkable. Other: None. IMPRESSION: No acute cardiopulmonary process. [facility]
[2019-02-03] MEDS ORDERED: ACETAMINOPHEN 325 MG TABLET PO STA (17:17)
[2019-02-03] MEDS ORDERED: CHERRY SYRUP 10 ML UDC PO ONE (17:17)
[2019-02-03] MEDS ORDERED: DEXAMETHASONE 10 MG/ML VIAL PO STA (17:17)
[2019-02-03] MEDS ORDERED: BENZONATATE 100 MG CAPSULE PO STA (17:17)
--- NOTE | 2019-02-03 17:21 | ED Physician Documentation ---
PD HPI URI - Stated complaint Stated Complaint: cough - Chief complaint Chief Complaint: Resp - History obtained from History obtained from: Patient - History of Present Illness Timing - onset: How many days ago (few) Timing duration: Days (few) Timing details: Abrupt onset, Still present Associated symptoms: Fever, Sore throat, Dry cough Contributing factors: No: Sick contact, Travel, Immunocompromised Improves by: No: Medication (amox since yesterday) Similar symptoms before: Has not had sx before Recently seen: Clinic (yesterday and Rx Amox, no other meds) Review of Systems Constitutional: reports: Fever Nose: reports: Congestion. denies: Rhinorrhea / runny nose Throat: reports: Sore throat Respiratory: reports: Cough. 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 HEENT: Chronic vision loss, Chronic sinusitis Psych: Anxiety, Eating disorder Musculoskeletal: Osteoarthritis Derm: None - Past Surgical History Past Surgical History: Yes General: Appendectomy, Hiatal hernia repair - Present Medications Home Medications: Ambulatory Orders Medication Instructions Recorded Confirmed Furosemide [Lasix] 60 mg PO DAILY 03/23/15 05/01/18 Fluticasone/Salmeterol [Advair 1 puffs INH BID 05/17/17 05/01/18 250-50 Diskus] Montelukast [Singulair] 10 mg PO QPM 05/17/17 05/01/18 amLODIPine [Norvasc] 5 mg PO DAILY 05/17/17 05/01/18 Albuterol 2.5 mg INH Q4H PRN #30 neb 07/10/17 05/01/18 Ibuprofen [Motrin] 800 mg PO Q8H PRN #30 tablet 05/01/18 Ondansetron Odt [Zofran] 4 mg TL Q6H PRN #10 tablet 05/01/18 traMADol [Ultram] 2 tab PO ONCE 05/01/18 05/01/18 Cephalexin [Keflex] 1,000 mg PO Q6H #80 capsule 05/03/18 Sulfamethox/Trimeth 800/160 2 each PO BID #40 tablet 05/03/18 [Bactrim Ds 800/160] Benzonatate [Tessalon Perle] 100 - 200 mg PO TID PRN #30 capsule 02/03/19 Hydrocodone/Acetaminophen 1 each PO Q6H PRN #18 tablet 02/03/19 [Hydrocodon-Acetaminophen 5-325] dexAMETHasone [Decadron] 4 mg PO DAILY #7 tablet 02/03/19 - Allergies Allergies/Adverse Reactions: Allergies Allergy/AdvReac Type Severity Reaction Status Date / Time codeine [Codeine] AdvReac Intermediate Anxiety Verified 02/03/19 15:31 - Social History Does the pt smoke?: No Smoking Status: Never smoker Does the pt drink ETOH?: Yes Does the pt have substance abuse?: No - Immunizations Immunizations are current?: Yes - POLST Patient has POLST: No POLST Status: Full Code PD ED PE NORMAL - Vitals Vital signs reviewed: Yes - General General: Alert and oriented X 3, No acute distress, Well developed/nourished - HEENT HEENT: Ears normal, Pharynx benign - Neck Neck: Supple, no meningeal sign, Other (mild anterior adenopathy) - Cardiac Cardiac: RRR, No murmur - Respiratory Respiratory: Clear bilaterally - Derm Derm: Normal color, Warm and dry, No rash Results - Vitals Vitals: Oxygen O2 Source Room air - Rads (name of study) chest xray Radiology: Prelim report reviewed (no infiltrates), See rad report PD MEDICAL DECISION MAKING - ED course Complexity details: considered differential (seems like URI, presume viral, and can add other meds to the abx to help symptoms.), d/w patient Departure - Departure Disposition: 01 Home, Self Care Clinical Impression: Upper respiratory infection Qualifiers: URI type: unspecified URI Qualified Code(s): J06.9 - Acute upper respiratory infection, unspecified Condition: Stable Record reviewed to determine appropriate education?: Yes Instructions: ED URI Viral W Wheezing Follow-Up: Glenis Lord PA-C [Primary Care Provider] - Prescriptions: Benzonatate [Tessalon Perle] 100 - 200 mg PO TID PRN #30 capsule PRN Reason: Cough dexAMETHasone [Decadron] 4 mg PO DAILY #7 tablet Hydrocodone/Acetaminophen [Hydrocodon-Acetaminophen 5-325] 1 each PO Q6H PRN #18 tablet PRN Reason: pain Comments: Use your albuterol at home 3-4 times a day regularly for the next week. Extra times if needed for wheezing. Add Decadron steroid daily for the next week. Used Tessalon if needed for cough suppression. Stay well-hydrated. Tylenol if needed for pains. Continue the antibiotic prescribed by your primary care yesterday. This may have some benefit though these are most commonly viral. Discharge Date/Time: 02/03/19 17:34
[2019-02-03 17:32] VITALS: BP 148/100
== END 2019-02-03 17:34 | disposition home or self-care (01) ==
LOC: ED 15:20
DX: J06.9 Acute upper respiratory infection, unspecified (principal); J45.909 Unspecified asthma, uncomplicated; I10 Essential (primary) hypertension
CPT/HCPCS: 71046; 99283; 99284; A9270

== ENCOUNTER 2019-05-19 02:23 | Emergency (ER) | payer OTHER ==
[2019-05-19] MEDS ORDERED: BENZONATATE 100 MG CAPSULE PO STA (02:51)
--- NOTE | 2019-05-19 03:18 | XRAY Report ---
Reason: COUGH Procedure Date: 05/19/2019 Accession Number: [id number] / [id number] Procedure: XR - Chest 2 View X-Ray CPT Code: 03052 Final Report FULL RESULT: EXAM: CHEST RADIOGRAPHY EXAM DATE: 05/19/2019 03:01 AM. CLINICAL HISTORY: COUGH. COMPARISON: CHEST 2 VIEW 02/03/2019 3:37 PM. TECHNIQUE: 2 views. FINDINGS: Lungs/Pleura: No focal opacities evident. No pleural effusion. No pneumothorax. Normal volumes. Mediastinum: Heart and mediastinal contours are unremarkable. Other: None. IMPRESSION: Normal 2-view chest radiography. RADIA
--- NOTE | 2019-05-19 03:51 | ED Physician Documentation ---
History of Present Illness - Stated complaint Stated Complaint: COUGH - Chief complaint Chief Complaint: Resp - History of Present Illness Timing: How many days ago (3) - Additonal information Additional information: 59 YEAR OLD MALE WITH HYPERTENSION, SLEEP APNEA, ASTHMA PRESENTS TO THE EMERGENCY DEPARTMENT BECAUSE OF SORE THROAT AND A PRODUCTIVE COUGH SINCE 3 DAYS AGO. HE DENIES FEVER OR CHILLS. HE DENIES SICK CONTACTS. HE HAS A HISTORY OF RECURRENT PNEUMONIA. HE REPORTS OF NASAL CONGESTION AND EAR FULLNESS. HE DENIES SINUS FULLNESS, NECK PAIN, SYNCOPE, NEAR SYNCOPE, DIZZINESS, POST TUSSIVE V OMITING. Review of Systems Constitutional: denies: Fever, Chills Ears: reports: Other (EAR FULLNESS) Nose: reports: Rhinorrhea / runny nose, Congestion Throat: reports: Sore throat Cardiac: denies: Chest pain / pressure, Palpitations Respiratory: reports: Cough. 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 HEENT: Chronic vision loss, Chronic sinusitis Psych: Anxiety, Eating disorder Musculoskeletal: Osteoarthritis Derm: None - Past Surgical History Past Surgical History: Yes General: Appendectomy, Hiatal hernia repair - Present Medications Home Medications: Ambulatory Orders Medication Instructions Recorded Confirmed Furosemide [Lasix] 60 mg PO DAILY 03/23/15 05/19/19 Fluticasone/Salmeterol [Advair 1 puffs INH BID 05/17/17 05/19/19 250-50 Diskus] amLODIPine [Norvasc] 5 mg PO DAILY 05/17/17 05/19/19 Benzonatate [Tessalon Perle] 100 - 200 mg PO TID PRN #20 capsule 05/19/19 - Allergies Allergies/Adverse Reactions: Allergies Allergy/AdvReac Type Severity Reaction Status Date / Time codeine [Codeine] AdvReac Intermediate Anxiety Verified 02/03/19 15:31 - Social History Does the pt smoke?: No Smoking Status: Never smoker Does the pt drink ETOH?: Yes Does the pt have substance abuse?: No - Immunizations Immunizations are current?: Yes - POLST Patient has POLST: No POLST Status: Full Code PD ED PE NORMAL - General General: Alert and oriented X 3, No acute distress - HEENT HEENT: EOMI, Ears normal, Moist mucous membranes, Pharynx benign, Other (BILATERAL TM's WERE VISUALIZED AND NORMAL IN APPEARANCE. 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 HE REPORTED OF RUNNY NOSE AND A SORE THROAT. HE DENIES A FEVER AND REPORTED OF EAR FULLNESS. PATIENT WAS GIVEN TESSALON PEARLS WITH LESSENING OF COUGH. BILATERAL TM's WERE NORMAL WITHOUT APPEARANCE OF OTITIS MEDIA OR OTITIS EXTERNAL. CXR DID NOT SHOW ACUTE INFILTRATIVE PROCESS. THIS IS CONSISTENT WITH UPPER RESPIRATORY INFECTION. NO WHEEZES ON LUNG EXAM. I RECOMMENDED SUPPORTIVE CARE. OUTPATIENT FOLLOW UP WITH PCP IN 3-5 DAYS WAS RECOMMENDED. STRICT RETURN INSTRUCTIONS WERE GIVEN. PATIENT EXPRESSED VERBAL UNDERSTANDING. HE WAS DISCHARGED IN STABLE CONDITION. Departure - Departure Disposition: 01 Home, Self Care Clinical Impression: Upper respiratory infection Condition: Stable Instructions: ED URI Viral Follow-Up: Glenis Lord PA-C [Primary Care Provider] - Within 1 week Prescriptions: Benzonatate [Tessalon Perle] 100 - 200 mg PO TID PRN #20 capsule PRN Reason: Cough Comments: PLEASE RETURN TO THE EMERGENCY DEPARTMENT IF YOU DEVELOP A FEVER OF 100.4 OR GREATER, WORSENING SYMPTOMS, SHORTNESS OF BREATH OR ANY NEW OR CONCERNING SYMPTOMS. Forms: Activity restrictions Discharge Date/Time: 05/19/19 04:05
[2019-05-19 04:07] VITALS: BP 179/111
== END 2019-05-19 04:05 | disposition home or self-care (01) ==
LOC: ED 02:23
DX: J06.9 Acute upper respiratory infection, unspecified (principal); I10 Essential (primary) hypertension
CPT/HCPCS: 71046; 99283; 99284; A9270

== ENCOUNTER 2019-06-05 02:25 | Emergency (ER) | payer OTHER ==
--- NOTE | 2019-06-05 02:33 | ED Physician Documentation ---
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 He reports he is not a tobacco user denies any chest pain denies any history of heart attack or stroke he reports last year he got the same thing and got better with Tessalon Perles.He denies any fevers, headache, neck pain, rash or any travel outside the country in the last 14 days.He denies any lower extremity swelling denies any history of pulmonary emboli or DVT denies any hemoptysis den ies any recent long travels or any recent surgeries or any personal history of hypercoagulabilityHe denies any exogenous estrogen use. patient denies any chest pain, denies any hx of pe/dvt.) Review of Systems Constitutional: reports: Reviewed and negative Eyes: reports: Reviewed and negative Ears: reports: Reviewed and negative Nose: reports: Reviewed and negative Throat: reports: Reviewed and negative Cardiac: reports: Reviewed and negative Respiratory: reports: Cough GI: reports: Reviewed and negative : reports: Reviewed and negative Skin: reports: Reviewed and negative Musculoskeletal: reports: Reviewed and negative Neurologic: reports: Reviewed and negative Psychiatric: reports: Reviewed and negative Endocrine: reports: Reviewed and negative Immunocompromised: reports: Reviewed and negative PD PAST MEDICAL HISTORY - Past Medical History Cardiovascular: Hypertension Respiratory: Asthma, Sleep apnea, CPAP use Neuro: None Endocrine/Autoimmune: None GI: GERD, Hiatal hernia 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 HEENT: Chronic vision loss, Chronic sinusitis Psych: Anxiety, Eating disorder Musculoskeletal: Osteoarthritis Derm: None - Past Surgical History Past Surgical History: Yes General: Appendectomy, Hiatal hernia repair - Present Medications Home Medications: Ambulatory Orders Medication Instructions Recorded Confirmed Furosemide [Lasix] 60 mg PO DAILY 03/23/15 06/05/19 Fluticasone/Salmeterol [Advair 1 puffs INH BID 05/17/17 06/05/19 250-50 Diskus] amLODIPine [Norvasc] 5 mg PO DAILY 05/17/17 06/05/19 Benzonatate [Tessalon Perle] 100 - 200 mg PO TID PRN #20 capsule 05/19/19 06/05/19 Benzonatate [Tessalon Perle] 100 mg PO BID #10 capsule 06/05/19 - Allergies Allergies/Adverse Reactions: Allergies Allergy/AdvReac Type Severity Reaction Status Date / Time valsartan [From Diovan] Allergy Unknown Verified 06/05/19 02:34 codeine [Codeine] AdvReac Intermediate Anxiety Verified 06/05/19 02:34 - Social History Does the pt smoke?: No Smoking Status: Never smoker Does the pt drink ETOH?: Yes Does the pt have substance abuse?: No - Immunizations Immunizations are current?: Yes - POLST Patient has POLST: No POLST Status: Full Code PD ED PE NORMAL - Vitals Vital signs reviewed: Yes - General General: Alert and oriented X 3, No acute distress, Well developed/nourished - HEENT HEENT: Atraumatic, PERRL, Pharynx benign - Neck Neck: Supple, no meningeal sign, No JVD - Cardiac Cardiac: RRR, No murmur, Strong equal pulses - Respiratory Respiratory: No respiratory distress, Clear bilaterally - Abdomen Abdomen: Normal bowel sounds, Soft, Non tender, Non distended, No organomegaly, Other (obese) - Rectal Rectal: Deferred - Back Back: No CVA TTP, No spinal TTP - Derm Derm: Normal color, Warm and dry, No rash - Extremities Extremities: No deformity, No tenderness to palpate, Normal ROM s pain, No edema, No calf tenderness / cord - Neuro Neuro: Alert and oriented 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, 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, No motor deficit, No sensory deficit, Normal speech - Psych Psych: Normal mood, Normal affect Results - Vitals Vitals: Vital Signs - 24 hr 06/05/19 06/05/19 02:25 03:38 Temperature 37.0 C 36.1 C L Heart Rate 86 74 Respiratory 18 16 Rate Blood Pressure 149/84 H 142/89 H O2 Saturation 98 97 Oxygen O2 Source Room air PD MEDICAL DECISION MAKING - ED course Complexity details: considered differential (Viral syndrome, bronchitis, URI, pneumonia), d/w patient (-2 view chest x-ray patient updated he is well- appearing, nontoxic nonseptic appearing with stable vital signs patient will be discharged home with close follow-up.) Departure - Departure Disposition: 01 Home, Self Care Clinical Impression: Cough Condition: Good Instructions: ED Viral Syndrome Follow-Up: Glenis Lord PA-C [Primary Care Provider] - 06/05/19 Prescriptions: Benzonatate [Tessalon Perle] 100 mg PO BID #10 capsule Discharge Date/Time: 06/05/19 03:39
[2019-06-05] MEDS ORDERED: BENZONATATE 100 MG CAPSULE PO STA (02:46)
--- NOTE | 2019-06-05 03:29 | XRAY Report ---
Reason: PNA Procedure Date: 06/05/2019 Accession Number: [id number] / [id number] Procedure: XR - Chest 2 View X-Ray CPT Code: 13136 Final Report FULL RESULT: EXAM: CHEST RADIOGRAPHY EXAM DATE: 06/05/2019 03:03 AM. CLINICAL HISTORY: Shortness of breath. COMPARISON: CHEST 2 VIEW 05/19/2019 2:54 AM CHEST 2 VIEW 02/03/2019 3:37 PM. TECHNIQUE: 2 views. FINDINGS: Lungs/Pleura: No focal opacities evident. No pleural effusion. No pneumothorax. Normal volumes. Mediastinum: Heart and mediastinal contours are unremarkable. Other: None. IMPRESSION: No acute cardiopulmonary findings radiographically. RADIA
[2019-06-05 03:39] VITALS: BP 142/89
== END 2019-06-05 03:39 | disposition home or self-care (01) ==
LOC: ED 02:25
DX: R05 Cough (principal); I10 Essential (primary) hypertension
CPT/HCPCS: 71046; 99283; 99284; A9270

== ENCOUNTER 2019-07-02 06:44 | Outpatient (CLI) | payer OTHER | END 2019-07-02 06:45 | disposition home or self-care (01) | LOC: DI 06:44 | PROVIDERS: ATTEND Physician Assistant Medical | DX: R06.09 Other forms of dyspnea (principal) | CPT/HCPCS: 93306 ==

== ENCOUNTER 2019-07-08 08:00 | Outpatient (CLI) | payer OTHER ==
[2019-07-08 16:54] LABS: CALCIUM 8.5 mg/dL (8.5-10.3); CREATININE 1.8 mg/dL (0.6-1.2)
== END 2019-07-08 23:59 | disposition home or self-care (01) ==
LOC: LAB.WCP 08:00
PROVIDERS: ATTEND Physician Assistant Medical
DX: R06.09 Other forms of dyspnea (principal)
CPT/HCPCS: 36415; 80048

== ENCOUNTER 2019-07-28 14:41 | Outpatient (CLI) | payer OTHER ==
[2019-07-28] MEDS ORDERED: IOVERSOL 320 100 ML VIAL IVP ONE ×2 (15:15→18:05)
--- NOTE | 2019-07-30 10:34 | CT Report ---
Reason: THORACIC AORTIC ANEURYSM Procedure Date: 07/28/2019 Accession Number: [id number] / [id number] Procedure: CT - ANGIO CHEST W/WO CPT Code: Final Report FULL RESULT: EXAM: CTA CHEST EXAM DATE: 07/28/2019 03:27 PM. CLINICAL HISTORY: THORACIC AORTIC ANEURYSM.. COMPARISON: ABDOMEN/PELVIS W/ 03/31/2015 7:00 PM. TECHNIQUE: Prior to and following intravenous administration of OPTIRAY 320, multiplanar 3D/MIP reconstruction of the thoracic aorta was performed. In accordance with CT protocol optimization, one or more of the following dose reduction techniques were utilized for this exam: automated exposure control, adjustment of mA and/or KV based on patient size, or use of iterative reconstructive technique. FINDINGS: Vascular Structures: There is dilatation of the proximal ascending thoracic aorta measuring up to 3.7 cm on the axial plane from the 2 o'clock to 8 o'clock position at the level of the main pulmonary artery. The descending thoracic aorta measures up to 3.0 cm at this same level. Lungs/Pleura: There is a 9 mm pulmonary nodule in the in the right lower lobe (series 14, image [id number]). There is a 4 mm pulmonary nodule in the right middle lobe (series 14, image 506). Mediastinum: Normal. No cardiac enlargement or adenopathy. Upper Abdomen: The spleen is enlarged measuring up to 14.8 cm in length. Other: None. IMPRESSION: 1. No aneurysmal dilatation or dissection of the thoracic aorta. 2. There is a 9 mm, previously 7 mm, pulmonary nodule in the right lower lobe and 4 mm pulmonary nodule in the right middle lobe (not within the field of view on the prior study). The difference in size may be due to differences in technique and slice acquisition. Given the nodules relative stability over 4 years this is thought likely to be benign. [facility]
== END 2019-07-28 14:42 | disposition home or self-care (01) ==
LOC: DI 14:41
PROVIDERS: ATTEND Physician Assistant Medical
DX: I77.810 Thoracic aortic ectasia (principal); R91.8 Other nonspecific abnormal finding of lung field; R16.1 Splenomegaly, not elsewhere classified
CPT/HCPCS: 71275; Q9967

== ENCOUNTER 2019-11-13 07:13 | Emergency (ER) | payer OTHER ==
--- NOTE | 2019-11-13 08:01 | ED Physician Documentation ---
PD HPI ABD PAIN - Stated complaint Stated Complaint: ABDOMINAL PX - Chief complaint Chief Complaint: Abd Pain - History obtained from History obtained from: Patient - History of Present Illness Timing - onset: Enter time (629), Today Timing - duration: Minutes Timing - details: Abrupt onset, Still present Quality: Sharp, Pain Location: LUQ Radiation: Chest Improved by: Laying still Worsened by: Moving, Position, Palpation Associated symptoms: No: Fever, Nausea, Vomiting, Hematemesis, Diarrhea, Constipation, Melena, Hematochezia, Dysuria, Hematuria, Chest pain, Dizzy, Near syncope / syncope Similar symptoms before: Diagnosis (appendicitis) Recently seen: Surgery (gluaucoma surgery 3wks ago) - Additional information Additional information: 59-year-old obese male with a history of hypertension has developed left upper quadrant abdominal pain on awakening this morning at 630. He states the pain is similar to what is had previously with appendicitis. He has not had nausea, vomiting, diarrhea or constipation. He has not had a fever. He indicates that he has been dieting for the past 2 months and last night had a salad. He has been working out with running but he has not been doing any abdominal crunches and he has not injured his chest wall that he can recall. Review of Systems Constitutional: denies: Fever, Chills, Myalgias Eyes: denies: Decreased vision Ears: denies: Ear pain Nose: denies: Rhinorrhea / runny nose, Congestion Throat: denies: Sore throat Cardiac: denies: Chest pain / pressure, Palpitations, Pedal edema, Calf pain Respiratory: denies: Dyspnea, Cough, Wheezing GI: reports: Abdominal Pain. 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 : Nocturia HEENT: Chronic vision loss, Chronic sinusitis Psych: Anxiety, Eating disorder Musculoskeletal: Osteoarthritis Derm: None - Past Surgical History Past Surgical History: Yes General: Appendectomy, Hiatal hernia repair - Present Medications Home Medications: Ambulatory Orders Medication Instructions Recorded Confirmed Furosemide [Lasix] 60 mg PO DAILY 03/23/15 06/05/19 Fluticasone/Salmeterol [Advair 1 puffs INH BID 05/17/17 06/05/19 250-50 Diskus] amLODIPine [Norvasc] 5 mg PO DAILY 05/17/17 06/05/19 Benzonatate [Tessalon Perle] 100 - 200 mg PO TID PRN #20 capsule 05/19/19 06/05/19 Benzonatate [Tessalon Perle] 100 mg PO BID #10 capsule 06/05/19 Meloxicam 15 mg PO DAILY PRN #20 tablet 11/13/19 - Allergies Allergies/Adverse Reactions: Allergies Allergy/AdvReac Type Severity Reaction Status Date / Time valsartan [From Diovan] Allergy Unknown Verified 11/13/19 07:27 codeine [Codeine] AdvReac Intermediate Anxiety Verified 11/13/19 07:27 - Social History Does the pt smoke?: No Smoking Status: Never smoker Does the pt drink ETOH?: Yes Does the pt have substance abuse?: No - Immunizations Immunizations are current?: Yes - POLST Patient has POLST: No POLST Status: Full Code PD ED PE NORMAL - Vitals Vital signs reviewed: Yes (Hypertensive) - General General: Alert and oriented X 3, No acute distress, Well developed/nourished - HEENT HEENT: Atraumatic, PERRL, EOMI - Neck Neck: Supple, no meningeal sign, No bony TTP - Cardiac Cardiac: RRR, No murmur - Respiratory Respiratory: No respiratory distress, Clear bilaterally - Abdomen Abdomen: Normal bowel sounds, Soft, Non distended, No organomegaly, Other (There is left upper quadrant abdominal tenderness to palpation there is palpable tenderness to palpation over the ribs to the left lower chest wall as well. There is not left lower quadrant tenderness or tenderness elsewhere in the abdomen.) - Back Back: No CVA TTP, No spinal TTP - Derm Derm: Normal color, Warm and dry, No rash - Extremities Extremities: No deformity, No edema - Neuro Neuro: Alert and oriented X 3, government minister 2-12 intact, No motor deficit, No sensory deficit, Normal speech Eye Opening: Spontaneous Motor: Obeys Commands Verbal: Oriented GCS Score: 15 - Psych Psych: Normal mood, Normal affect Results - Vitals Vitals: Vital Signs - 24 hr 11/13/19 07:24 Temperature 36.3 C L Heart Rate 70 Respiratory 20 Rate Blood Pressure 162/102 H O2 Saturation 99 Oxygen O2 Source Room air - Labs Labs: Laboratory Tests 11/13/19 11/13/19 11/13/19 07:40 07:40 08:23 WBC 10.3 RBC 5.09 Hgb 16.3 Hct 46.2 MCV 90.8 MCH 32.0 H MCHC 35.3 RDW 13.3 Plt Count 141 MPV 9.9 Neut # (Auto) 8.4 H Lymph # (Auto) 1.1 L Levy # (Auto) 0.6 Eos # (Auto) 0.1 Baso # (Auto) 0.0 Absolute Nucleated RBC 0.00 Nucleated RBC % 0.0 Sodium 137 Potassium 4.1 Chloride 103 Carbon Dioxide 26 Anion Gap 8.0 BUN 25 H Creatinine 1.4 H Estimated GFR (MDRD) 52 L Glucose 87 Calcium 9.0 Total Bilirubin 1.9 H AST 28 ALT 31 Alkaline Phosphatase 60 Total Protein 6.9 Albumin 4.9 Globulin 2.0 L Albumin/Globulin Ratio 2.5 H Lipase 34 Urine Color YELLOW Urine Clarity CLEAR Urine pH 5.5 Ur Specific [place] >=1.030 H Urine Protein 100 H Urine Glucose (UA) NEGATIVE Urine Ketones TRACE Urine Occult Blood TRACE-INTA Urine Nitrite NEGATIVE Urine Bilirubin NEGATIVE Urine Urobilinogen 0.2 (NORMAL) Ur Leukocyte Esterase NEGATIVE Urine RBC 0-5 Urine WBC 0-3 Ur Squamous Epith Cells NONE SEEN Urine Bacteria None Seen Ur Microscopic Review INDICATED Urine Culture Comments NOT INDICATED - Rads (name of study) CT ab/pel with Radiology: Prelim report reviewed (Impression: Because of left upper quadrant abdominal pain is not identified.), EMP read indepedently, See rad report (Specifically in the there is mention of a 3 cm right renal cyst that requires further evaluation with a renal protocol CT scan unrelated to this to be performed as an outpatient.) PD MEDICAL DECISION MAKING - ED course Complexity details: reviewed old records, reviewed results, re-evaluated patient, considered differential, d/w patient ED course: 59-year-old male with left-sided abdominal pain and no visceral symptoms has a pleuritic nature to the pain and he has been wearing a mask for the past 3 weeks at work nearly continuously. I suspect he has mask chondritis and we have treated him here in the emergency department with dexamethasone and Toradol. The radiologist is concerned about a mass in the right kidney which is previously been evaluated with ultrasound he recommends a renal protocol CT scan be done as an outpatient. Departure - Departure Disposition: Home, Self Care Clinical Impression: Costochondritis, acute Condition: Stable Instructions: ED Chest Pain Costochondritis Follow-Up: Glenis Lord PA-C [Primary Care Provider] - Prescriptions: Meloxicam 15 mg PO DAILY PRN #20 tablet PRN Reason: Pain Comments: Today on your CT scan there is again a cyst on the right kidney and our radiologist is recommending we have a renal protocol CAT scan done to follow this mass. This can be done as an outpatient with your primary care doctor.
[2019-11-13 08:02] LABS: BASOPHILS % (AUTO) 0.4 %; EOSINOPHILS # (AUTO) 0.1 10^3/uL (0.0-0.7); EOSINOPHILS % (AUTO) 0.8 %; HGB - HEMOGLOBIN 16.3 g/dL (14.0-18.0); LYMPHOCYTES # (AUTO) 1.1 10^3/uL (1.5-3.5); LYMPHOCYTES % (AUTO) 11.1 %; MEAN CORPUSCULAR HGB CONC 35.3 g/dL (32.0-36.0); MEAN CORPUSCULAR VOLUME 90.8 fL (80.0-94.0); MEAN PLATELET VOLUME 9.9 fL (7.4-11.4); MONOCYTES # (AUTO) 0.6 10^3/uL (0.0-1.0); MONOCYTES % (AUTO) 5.4 %; NEUTROPHILS # (AUTO) 8.4 10^3/uL (1.5-6.6); NEUTROPHILS % (AUTO) 81.5 %; PLT - PLATELET COUNT 141 10^3/uL (130-450); RED BLOOD COUNT 5.09 10^6/uL (4.70-6.10); RED CELL DISTRIBUTION WIDTH 13.3 % (12.0-15.0); WHITE BLOOD COUNT 10.3 x10^3/uL (4.8-10.8)
[2019-11-13] MEDS ORDERED: IOVERSOL 320 100 ML VIAL IVP ONE ×2 (08:20→08:48)
[2019-11-13 08:26] LABS: ALBUMIN 4.9 g/dL (3.2-5.5); ALBUMIN/GLOBULIN RATIO 2.5 (1.0-2.2); BILIRUBIN,TOTAL 1.9 mg/dL (0.2-1.0); CREATININE 1.4 mg/dL (0.6-1.2); TOTAL PROTEIN 6.9 g/dL (6.7-8.2)
[2019-11-13 08:34] LABS: BILIRUBIN,URINE NEGATIVE (NEGATIVE); GLUCOSE, URINE (UA) NEGATIVE (NEGATIVE); KETONES,URINE (UA) TRACE mg/dL (NEGATIVE); LEUKOCYTE ESTERASE, URINE NEGATIVE (NEGATIVE); NITRITE,URINE NEGATIVE (NEGATIVE); OCCULT BLOOD,URINE TRACE-INTA (NEGATIVE); PH,URINE 5.5 PH (5.0-7.5); PROTEIN,URINE 100 mg/dL (NEGATIVE); UROBILINOGEN,URINE 0.2 (NORMAL) E.U./dL (NORMAL)
[2019-11-13 08:38] LABS: CLARITY,URINE CLEAR (CLEAR)
[2019-11-13 08:53] LABS: BACTERIA,URINE None Seen /HPF (None Seen); RBC,URINE 0-5 /HPF (0-5); SQUAMOUS EPITHELIAL CELL,UR NONE SEEN (<= Few)
[2019-11-13] MEDS ORDERED: SODIUM CHLORIDE 0.9% 1,000 ML IV STA (08:53)
--- NOTE | 2019-11-13 09:26 | CT Report ---
PROCEDURE: Abdomen/Pelvis W INDICATIONS: LUQ pain CONTRAST: IV CONTRAST: Optiray 320 ml: 100 PO CONTRAST: *NO PO CONTRAST TECHNIQUE: After the administration of 100 contrast, 5 mm thick sections acquired from the diaphragms to the sym physis. 5 mm thick coronal and sagittal reformats were acquired. For radiation dose reduction, the following was used: automated exposure control, adjustment of mA and/or kV according to patient size . COMPARISON: 03/31/2015. Correlation is made with overlapping portions of chest CT 07/28/2019. Correl ation is also made with ultrasound 09/02/2017. FINDINGS: Image quality: Excellent. ABDOMEN: Lung bases: Lung bases are clear. Heart size is normal. A small hiatal hernia is incidentally note d. Solid organs: No significant liver abnormality is seen. The spleen is enlarged, measuring 15.6 cm AP. Gallbladder wall does not appear thickened. Biliary system is non dilated. Pancreas enhances nor dwaine. No adrenal nodules. Kidneys demonstrate normal size and enhancement, without hydronephrosis. There is a low-density, irr egular mass within the superolateral aspect of the right kidney that measures 3 cm and 53 Hounsfield units. This is clearly enlarged compared to 2016. Peritoneum and bowel: Bowel loops demonstrate normal wall thickness and caliber. No free fluid or a ir. Status post appendectomy. Minimal diverticulosis. No diverticulitis. Nodes and vessels: No retroperitoneal or mesenteric adenopathy by size criteria. Aorta and inferior vena cava are normal in size. Miscellaneous: No ventral hernias. PELVIS: Genitourinary: Moderate circumferential bladder wall thickening is seen. There is an apparent right h ydrocele. Miscellaneous: No inguinal hernias or adenopathy. A mid pelvis clips can be seen, as on series 3 im age 75. Bones: No suspicious bony lesions. No vertebral body compression fractures. No hemodynamically sig nificant stenosis can be seen within the arteries of the neck. STIR convex Age-appropriate degener ative changes are seen. IMPRESSION: A cause of left upper quadrant pain is not identified. There is a 3 cm mass seen involving the superolateral aspect of the right kidney. On the current stud y, this has the appearance of a solid enhancing mass. Renal cell carcinoma is suspected. However, it is noted that on the 2018 ultrasound examination, this is described as a complex cyst. For further ev aluation, a scheduled renal mass protocol CT (without and with contrast) is now recommended. There is moderate circumferential bladder wall thickening. Please correlate with cystitis versus blad tian obstruction in this male patient. Stable splenomegaly. Incidental note is made of: Small hiatal hernia Minimal diverticulosis, without diverticulitis. Appendectomy Apparent right hydrocele Note: Findings and recommendations discussed by telephone with Dr. Vizcaino at 8:22 AM [place] time on 11/13/2019 Reviewed by: Chris Coles MD on 11/13/2019 8:25 AM AKDT Approved by: Chris Coles MD on 11/13/2019 8:25 AM [place]MARGO Station ID: [id number]
[2019-11-13] MEDS ORDERED: DEXAMETHASONE 10 MG/ML VIAL IVP STA (09:44)
[2019-11-13] MEDS ORDERED: KETOROLAC 30 MG/ML VIAL IVP STA (09:44)
[2019-11-13 10:00] VITALS: BP 154/88
== END 2019-11-13 10:00 | disposition home or self-care (01) ==
LOC: ED 07:13
DX: M94.0 Chondrocostal junction syndrome [Tietze] (principal)
CPT/HCPCS: 36415; 74177; 80053; 81001; 83690; 85025; 96374; 99284; Q9967; 81003; 87086

== ENCOUNTER 2020-01-25 17:24 | Outpatient (CLI) | payer OTHER ==
[2020-01-25] MEDS ORDERED: IOVERSOL 320 100 ML VIAL IVP ONE ×2 (17:40→18:26)
[2020-01-25 17:50] LABS: CALCIUM 9.2 mg/dL (8.5-10.3); CREATININE 1.8 mg/dL (0.6-1.2)
[2020-01-25] MEDS: IOVERSOL 320 100 ML VIAL IVP ONE ×2 (19:03→19:05)
--- NOTE | 2020-01-26 09:31 | CT Report ---
PROCEDURE: ABDOMEN W/WO INDICATIONS: RENAL MASS CONTRAST: IV CONTRAST: Optiray 320 ml: 100 PO CONTRAST: *NO PO CONTRAST TECHNIQUE: 3 phase scanning was performed. After the administration of intravenous contrast, 5 mm thick section s acquired from the diaphragm to the symphysis. 5 mm coronal and sagittal reformats were acquired. For radiation dose reduction, the following was used: automated exposure control, adjustment of mA a nd/or kV according to patient size. COMPARISON: None. FINDINGS: Image quality: Excellent. Lung bases: Lung bases are clear. Heart size is normal. Kidneys: At the upper outer cortex of the right kidney there is a rounded mildly increased radiodens ity structure that is mildly heterogeneous, previously also seen on 11/13/2019 CT scanning without maria l reciable change in size over time. This structure measures approximately 2.8 cm in maximal dimension, and has precontrast internal radiodensity of 56.4 Hounsfield units. Arterial phase of contrast enhan cement reveals no significant increased radiodensity with internal radiodensity of 58.9 Hounsfield un its. Thereafter, delayed postcontrast imaging shows again no significant increase or decrease in cont rast enhancement with the average internal radiodensity of 60.1. This was also present on prior chest CT scanning 07/28/2019 and described as a complex cyst at the right kidney superiorly measuring up to 2.8 x 2.9 cm. Other solid organs: Liver and spleen appear free of mass lesion. Gallbladder appears normal Biliary system is non dilated. Pancreas is normal in morphology. Spleen is normal in size and enhancement. No adrenal nodules. Both kidneys demonstrate normal size and enhancement, without hydronephrosis o r nephrolithiasis. Nodes and vessels: No retroperitoneal or mesenteric adenopathy by size criteria. Aorta and inferior vena cava are normal in size. Bowel and peritoneum: Unenhanced bowel loops are normal in caliber. No free fluid or air. Bones: No suspicious bony lesions. No vertebral body compression fractures. Miscellaneous: No ventral hernias. IMPRESSION: The structure at the upper outer border of the right renal cortex has been present at [facility] since ultrasound scanning in August 2017 and present on subsequent CT scans without record changer tester britton e. It shows no significant enhancement or "washout" of contrast over the [address] scanning util ized. If any follow-up of this structure is clinically desired a targeted single organ ultrasound sca nning at yearly intervals could be obtained. Reviewed by: Elder Acharya MD on 01/26/2020 9:30 AM PST Approved by: Elder Acharya MD on 01/26/2020 9:30 AM PST Station ID: [id number]
== END 2020-01-25 17:25 | disposition home or self-care (01) ==
LOC: LAB 17:24
PROVIDERS: ATTEND Physician Assistant Medical
DX: N28.89 Other specified disorders of kidney and ureter (principal)
CPT/HCPCS: 36415; 74170; 80048

== ENCOUNTER 2020-01-26 17:59 | Emergency (ER) | payer OTHER ==
[2020-01-26 18:07] VITALS: BP 172/92
--- NOTE | 2020-01-26 19:44 | ED Physician Documentation ---
History of Present Illness - Stated complaint Stated Complaint: COUGH/DIZZY - Chief complaint Chief Complaint: Resp - Additonal information Additional information: 59-year-old male has a history of hypertension presents to the emergency depar tment with acute onset cough, sore throat, congestion sneezing that began early this a.m. He does report a history of pneumonia and is concerned he may have pneumonia. However he denies any fevers and reports his cough is mainly dry. He denies any recent sick contacts. Denies chest pain or dyspnea. No abdominal pain nausea or vomiting. On exam in the room he appears well, no dyspnea normal saturations. He is noted to be hypertensive. He reports he did not take his blood pressure medications today Review of Systems Constitutional: denies: Fever, Chills, Myalgias, Fatigue Eyes: reports: Reviewed and negative Ears: reports: Reviewed and negative Nose: reports: Rhinorrhea / runny nose, Congestion Throat: reports: Sore throat, Reviewed and negative. denies: Oral lesions / sores, Swollen tonsils Cardiac: denies: Chest pain / pressure, Palpitations, Pedal edema, Calf pain Respiratory: reports: Cough. 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 HEENT: Chronic vision loss, Chronic sinusitis Psych: Anxiety, Eating disorder Musculoskeletal: Osteoarthritis Derm: None - Past Surgical History Past Surgical History: Yes General: Appendectomy, Hiatal hernia repair - Present Medications Home Medications: Ambulatory Orders Medication Instructions Recorded Confirmed Furosemide [Lasix] 60 mg PO DAILY 03/23/15 06/05/19 Fluticasone/Salmeterol [Advair 1 puffs INH BID 05/17/17 06/05/19 250-50 Diskus] amLODIPine [Norvasc] 5 mg PO DAILY 05/17/17 06/05/19 Benzonatate [Tessalon Perle] 100 - 200 mg PO TID PRN #20 capsule 05/19/19 06/05/19 Benzonatate [Tessalon Perle] 100 mg PO BID #10 capsule 06/05/19 Meloxicam 15 mg PO DAILY PRN #20 tablet 11/13/19 Benzonatate [Tessalon] 100 mg PO TID PRN #30 capsule 01/26/20 - Allergies Allergies/Adverse Reactions: Allergies Allergy/AdvReac Type Severity Reaction Status Date / Time valsartan [From Diovan] Allergy Unknown Verified 01/26/20 18:07 codeine [Codeine] AdvReac Intermediate Anxiety Verified 01/26/20 18:07 - Social History Does the pt smoke?: No Smoking Status: Never smoker Does the pt drink ETOH?: Yes Does the pt have substance abuse?: No - Immunizations Immunizations are current?: Yes - POLST Patient has POLST: No POLST Status: Full Code PD ED PE NORMAL - General General: Alert and oriented X 3, No acute distress, Well developed/nourished, Other (obese) - HEENT HEENT: PERRL, EOMI - Neck Neck: Supple, no meningeal sign, No adenopathy - Cardiac Cardiac: RRR, No murmur, No gallop - Respiratory Respiratory: No respiratory distress, Clear bilaterally - Abdomen Abdomen: Normal bowel sounds, Soft, Non tender - Derm Derm: Normal color Results - Vitals Vitals: Vital Signs - 24 hr 01/26/20 18:04 Temperature 37 C Heart Rate 73 Respiratory 18 Rate Blood Pressure 172/92 H O2 Saturation 100 Oxygen O2 Source Room air PD MEDICAL DECISION MAKING - ED course Complexity details: reviewed results, considered differential, d/w patient ED course: 59-year-old male presents the emergency department with acute onset cough, congestion sore throat and sneezing. We will complete COVID-19 screening today. Given the lack of fevers will defer influenza testing for now. His cardiopulmonary exam is unremarkable and he is without hypoxia tachypnea or any dyspnea. I will prescribe some Tessalon Perles to help calm his cough. Chest x- ray deferred given benign cardiopulmonary exam. Patient advised that he needs to remain in quarantine until Covid results are known Departure - Departure Disposition: 01 Home, Self Care Clinical Impression: Upper respiratory disease, Cough Condition: Stable Record reviewed to determine appropriate education?: Yes Instructions: ED Viral Syndrome Ch Follow-Up: Glenis Lord PA-C [Primary Care Provider] - Prescriptions: Benzonatate [Tessalon] 100 mg PO TID PRN #30 capsule PRN Reason: Cough Comments: Anterior cough, congestion, sore throat is most likely a viral upper respiratory infection. We are screening you for COVID-19 today. We will not have these test results for 48 hours. We will only call you if the results are positive. I have prescribed some Tessalon Perles to help calm your cough. It is important that you remain in quarantine until you know your COVID-19 results. We will only call you if the test results are positive. If at any point you develop chest pain, cannot catch her breath, develop a high fever or feel that your symptoms are not improving please return to the emergency department
== END 2020-01-26 19:56 | disposition home or self-care (01) ==
LOC: ED 17:59
DX: J06.9 Acute upper respiratory infection, unspecified (principal); Z20.828 Contact with and (suspected) exposure to other viral communicable diseases; I10 Essential (primary) hypertension
CPT/HCPCS: 99282; 99283

== ENCOUNTER 2020-03-02 11:30 | Outpatient (CLI) | payer OTHER ==
--- NOTE | 2020-03-02 11:00 | SLEEP CARE CONSULTATION ---
Information from patient questionnaire entered by Martha Berumen. I have reviewed and concur with the information entered by Martha Berumen. This document represents the service I personally performed and the decisions made by me, Vika Santillan, RN, MSN, HVAC LEAD. History of Present Illness Service Date and Time: 03/02/2020 1130 Previous diagnosis: Severe, Obstructive Sleep Apnea-Hypopnea Syndrome AHI: 41.7 (in 2013)(10.8 in 2010) Reason for follow up: annual (last seen 10/2018) Equipment type: CPAP Equipment obtained from: [employer] (getting supplies as needed) Mask style: Full face Mask brand: Respironics ([place]) Backup mask available: Yes (old mask ) Last cushion change: last week Prior sleep studies: Yes Year and Where: 2010 and 2013 - [facility] sleep Type of Sleep Study: Polysomnography CPAP Compliance Data - Data Reviewed with Patient Average duration of nightly device use: 6 hr 30 min Compliance rate %: 98.9 (180 days) Current pressure setting (cmH2O): 9 Humidity settin Heated hose settin Average residual AHI: 0.5 Average large leak: 1 min 28 sec Subjective Patient concerns: reports: condensation in mask/hose (rare), other (ready to update his CPAP as obtained over 5 years ago 02/03/15). denies: aerophagia, mask discomfort, air blowing in eyes, mask leak noise, nasal congestion, dry mouth, nose, throat, epistaxis Observed to snore while using device: No Current pressure setting perceived as: comfortable On therapy, patient: reports: sleeping better, awakening more refreshed, being more awake and alert during the day, more rested overall. denies: drowsiness while driving Initial [place] Sleepiness Scale score: 18 (in 2009) Current [place] Sleepiness Scale score: 3 Allergies and Home Medications Known drug allergies: Yes Home medication list reviewed: Yes (same as 2018 except dc zantac and lasix/ Advair prn) Review of Systems Review of systems same as previous: Yes (no changes ) Physical Exam Height: 5 ft 8 in Weight: 290 lb Body Mass Index: 44.1 BMI Classification: Morbidly Obese Impression and Plan 1. Obstructive Sleep Apnea-Hypopnea Syndrome, severe, with good treatment compliance and good apnea control. On CPAP therapy, the patient has better sleep quality and is more rested overall. The patients CPAP is over 5 years old and of reasonable use. A DWO prescription will be made. Compliance guidelines for new device and follow up discussed. Patient has gained weight. Currently patients BMI is 44.1 obesity class . Obesity increases the risk of apnea, CPAP pressure requirements and overall health risks especially cardiovascular and diabetes. Thus patient is advised to lose weight. Weight loss can be done with reducing portion size, reducing refined foods and balancing content with vegetables, fruit and protein. In addition tracking food intake will allow awareness of how to modify diet to achieve weight loss goals. Also eating more slowly will allow more awareness of food intake and enjoyment of food while assi sting patient to modify intake at each meal. A diet consultation can be helpful in achieving optimal weight loss goals. . Patient encouraged to discuss their weight loss goals with their PCP and consider a referral to a aerospace medicine physician. The patient's CPAP pressure range should accommodate some weight loss. Symptoms to report for additional pressure adjustment discussed. Patient's apnea severity and rationale for treatment to reduce apnea, improve sleep quality and reduce cardiovascular and cerebrovascular events was reviewed. I also reviewed the benefit of consistent device use of CPAP for hypertension. * Update CPAP and Continue auto CPAP pressure at 9 cmH2O * Notify me if snoring with mask or feeling that the pressure is too much or too little * Attempt to lose weight * Call this office if any problems using CPAP * Return for follow up one month after obtaining new up new device , or sooner if concerns arise Counseling Topics: Weight loss health impact, Discuss weight with PCP Visit Type: Telehealth Video Video Type: Doximity Patient Location: Home Location of Provider: Home Patient agrees and consents to this telehealth visit type: Yes Patient agrees to have their insurance billed: Yes Time Spent with Patient (minutes): 20 Provider Statement: I spent 100% of the Telehealth Video Call with the patient with greater than 50% spent counseling the patient and coordination of care.
== END 2020-03-02 11:31 | disposition home or self-care (01) ==
LOC: SC 11:30
PROVIDERS: ATTEND Nurse Practitioner Family
DX: G47.33 Obstructive sleep apnea (adult) (pediatric) (principal); E66.01 Morbid (severe) obesity due to excess calories; Z68.41 Body mass index [BMI] 40.0-44.9, adult

== ENCOUNTER 2020-08-24 08:00 | Outpatient (CLI) | payer BC, OTHER ==
[2020-08-24 12:13] LABS: BASOPHILS # (AUTO) 0.1 10^3/uL (0.0-0.1); BASOPHILS % (AUTO) 0.7 %; EOSINOPHILS # (AUTO) 0.1 10^3/uL (0.0-0.7); EOSINOPHILS % (AUTO) 1.6 %; HCT - HEMATOCRIT 43.3 % (42.0-52.0); HGB - HEMOGLOBIN 15.2 g/dL (14.0-18.0); LYMPHOCYTES # (AUTO) 1.4 10^3/uL (1.5-3.5); LYMPHOCYTES % (AUTO) 21.3 %; MEAN CORPUSCULAR HEMOGLOBIN 31.9 pg (27.0-31.0); MEAN CORPUSCULAR HGB CONC 35.1 g/dL (32.0-36.0); MEAN CORPUSCULAR VOLUME 90.8 fL (80.0-94.0); MEAN PLATELET VOLUME 10.2 fL (7.4-11.4); MONOCYTES # (AUTO) 0.5 10^3/uL (0.0-1.0); MONOCYTES % (AUTO) 7.6 %; NEUTROPHILS # (AUTO) 4.5 10^3/uL (1.5-6.6); NEUTROPHILS % (AUTO) 67.3 %; PLT - PLATELET COUNT 148 10^3/uL (130-450); RED BLOOD COUNT 4.77 10^6/uL (4.70-6.10); RED CELL DISTRIBUTION WIDTH 13.4 % (12.0-15.0); WHITE BLOOD COUNT 6.7 x10^3/uL (4.8-10.8)
[2020-08-24 12:32] LABS: ALBUMIN 4.3 g/dL (3.2-5.5); ALKALINE PHOSPHATASE 63 IU/L (42-121); ALT ALANINE AMINOTRANSFERASE 31 IU/L (10-60); AST ASPARTATE AMINOTRANSFERASE 20 IU/L (10-42); BILIRUBIN,TOTAL 1.6 mg/dL (0.2-1.0); BUN - BLOOD UREA NITROGEN 22 mg/dL (6-20); CALCIUM 8.7 mg/dL (8.5-10.3); CARBON DIOXIDE - CO2 26 mmol/L (21-32); CHLORIDE 107 mmol/L (101-111); CHOL/HDL RATIO 3.9 (<5.0); CHOLESTEROL 157 mg/dL; CREATININE 1.5 mg/dL (0.6-1.2); GFR - MDRD 48 (>89); GLUCOSE 92 mg/dL (70-100); HDL CHOLESTEROL 40 mg/dL; LDL CHOLESTEROL,CALCULATED 98 mg/dL; LDL/HDL RATIO 2.5 (<3.6); POTASSIUM 4.6 mmol/L (3.5-5.0); SODIUM 139 mmol/L (135-145); TOTAL PROTEIN 6.4 g/dL (6.7-8.2); TRIGLYCERIDES 93 mg/dL; URIC ACID 6.3 mg/dL (2.6-7.2); VLDL CHOLESTEROL 19 mg/dL
== END 2020-08-24 23:59 | disposition home or self-care (01) ==
LOC: LAB.WCP 08:00
PROVIDERS: ATTEND Physician Assistant Medical
DX: E78.5 Hyperlipidemia, unspecified (principal); Z12.5 Encounter for screening for malignant neoplasm of prostate; E79.0 Hyperuricemia without signs of inflammatory arthritis and tophaceous disease; K21.9 Gastro-esophageal reflux disease without esophagitis
CPT/HCPCS: 36415; 80053; 80061; 83721; 84153; 84550; 85025

== ENCOUNTER 2020-11-23 08:00 | Outpatient (CLI) | payer BC, OTHER ==
[2020-11-23 18:16] LABS: CALCIUM 8.9 mg/dL (8.5-10.3); CREATININE 1.6 mg/dL (0.6-1.2); POTASSIUM 4.2 mmol/L (3.5-5.0)
== END 2020-11-23 23:59 | disposition home or self-care (01) ==
LOC: LAB.WCP 08:00
PROVIDERS: ATTEND Physician Assistant Medical
DX: N18.2 Chronic kidney disease, stage 2 (mild) (principal)
CPT/HCPCS: 36415; 80048

== ENCOUNTER 2020-12-29 08:00 | Outpatient (CLI) | payer BC, OTHER ==
[2020-12-29 12:09] LABS: HCT - HEMATOCRIT 44.9 % (42.0-52.0); HGB - HEMOGLOBIN 15.6 g/dL (14.0-18.0); MEAN CORPUSCULAR HEMOGLOBIN 31.8 pg (27.0-31.0); MEAN CORPUSCULAR HGB CONC 34.7 g/dL (32.0-36.0); MEAN CORPUSCULAR VOLUME 91.6 fL (80.0-94.0); MEAN PLATELET VOLUME 10.5 fL (7.4-11.4); RED BLOOD COUNT 4.9 10^6/uL (4.70-6.10); RED CELL DISTRIBUTION WIDTH 13.8 % (12.0-15.0); WHITE BLOOD COUNT 8.2 x10^3/uL (4.8-10.8)
[2020-12-29 12:25] LABS: CALCIUM 9.1 mg/dL (8.5-10.3); CREATININE 1.9 mg/dL (0.6-1.2); POTASSIUM 4.5 mmol/L (3.5-5.0)
[2020-12-29 13:05] LABS: CREATININE,URINE 144.8 mg/dL
[2020-12-29 13:33] LABS: PROTEIN/CREATININE RATIO,URINE 0.6 (<=0.2)
== END 2020-12-29 23:59 | disposition home or self-care (01) ==
LOC: LAB.WCP 08:00
PROVIDERS: ATTEND Internal Medicine Nephrology
DX: N05.9 Unspecified nephritic syndrome with unspecified morphologic changes (principal); D70.9 Neutropenia, unspecified; D63.1 Anemia in chronic kidney disease; R80.9 Proteinuria, unspecified
CPT/HCPCS: 36415; 80048; 82570; 84156; 85027

== ENCOUNTER 2021-02-21 08:00 | Outpatient (CLI) | payer BC, OTHER ==
[2021-02-21 12:53] LABS: CALCIUM 8.8 mg/dL (8.5-10.3); CREATININE 2.3 mg/dL (0.6-1.2); PHOSPHORUS 3.7 mg/dL (2.5-4.6); POTASSIUM 4.8 mmol/L (3.5-5.0)
== END 2021-02-21 23:59 ==
LOC: LAB.WCP 08:00
PROVIDERS: ATTEND Physician Assistant Medical
DX: N18.2 Chronic kidney disease, stage 2 (mild) (principal); N05.9 Unspecified nephritic syndrome with unspecified morphologic changes; I50.32 Chronic diastolic (congestive) heart failure; E83.30 Disorder of phosphorus metabolism, unspecified; N25.81 Secondary hyperparathyroidism of renal origin; M10.00 Idiopathic gout, unspecified site
CPT/HCPCS: 36415; 80048; 83880; 83970; 84100; 84550

== ENCOUNTER 2021-02-26 08:00 | Outpatient (CLI) | payer BC, OTHER | END 2021-02-26 23:59 | LOC: LAB.N 08:00 | PROVIDERS: ATTEND Family Medicine | DX: R07.0 Pain in throat (principal); Z20.822 Contact with and (suspected) exposure to COVID-19 ==

== ENCOUNTER 2021-04-03 08:00 | Outpatient (CLI) | payer BC, OTHER ==
[2021-04-03 12:14] LABS: ALBUMIN 4.2 g/dL (3.2-5.5); ALBUMIN/GLOBULIN RATIO 1.9 (1.0-2.2); ALKALINE PHOSPHATASE 51 IU/L (42-121); ALT ALANINE AMINOTRANSFERASE 30 IU/L (10-60); AST ASPARTATE AMINOTRANSFERASE 27 IU/L (10-42); BILIRUBIN,TOTAL 0.8 mg/dL (0.2-1.0); BUN - BLOOD UREA NITROGEN 35 mg/dL (6-20); CALCIUM 8.7 mg/dL (8.5-10.3); CARBON DIOXIDE - CO2 20 mmol/L (21-32); CHLORIDE 108 mmol/L (101-111); CHOL/HDL RATIO 5.1 (<5.0); CHOLESTEROL 157 mg/dL; CREATININE 1.7 mg/dL (0.6-1.2); GFR - MDRD 41 (>89); GLUCOSE 82 mg/dL (70-100); HDL CHOLESTEROL 31 mg/dL; LDL CHOLESTEROL,CALCULATED 104 mg/dL; LDL/HDL RATIO 3.4 (<3.6); SODIUM 137 mmol/L (135-145); TOTAL PROTEIN 6.4 g/dL (6.7-8.2); TRIGLYCERIDES 109 mg/dL; VLDL CHOLESTEROL 22 mg/dL
[2021-04-03 12:33] LABS: THYROID STIMULATING HORMONE 2.4 uIU/mL (0.34-5.60)
== END 2021-04-03 23:59 ==
LOC: LAB.WCP 08:00
PROVIDERS: ATTEND Physician Assistant Medical
DX: Z00.00 Encounter for general adult medical examination without abnormal findings (principal); E78.5 Hyperlipidemia, unspecified; Z12.5 Encounter for screening for malignant neoplasm of prostate; N05.9 Unspecified nephritic syndrome with unspecified morphologic changes
CPT/HCPCS: 36415; 80053; 80061; 83721; 84153; 84443

== ENCOUNTER 2021-05-02 08:38 | Outpatient (CLI) | payer BC, OTHER ==
[2021-05-02 12:40] LABS: CALCIUM 9.5 mg/dL (8.5-10.3); POTASSIUM 3.8 mmol/L (3.5-5.0)
== END 2021-05-02 08:39 | disposition home or self-care (01) ==
LOC: LAB.N 08:38
PROVIDERS: ATTEND Internal Medicine Nephrology
DX: N05.9 Unspecified nephritic syndrome with unspecified morphologic changes (principal)
CPT/HCPCS: 36415; 80048

== ENCOUNTER 2021-05-31 07:13 | Outpatient (CLI) | payer BC, OTHER ==
[2021-05-31 12:23] LABS: CALCIUM 9.5 mg/dL (8.5-10.3); CREATININE 1.9 mg/dL (0.6-1.2); POTASSIUM 4.2 mmol/L (3.5-5.0)
== END 2021-05-31 07:14 | disposition home or self-care (01) ==
LOC: LAB.N 07:13
PROVIDERS: ATTEND Internal Medicine Nephrology
DX: N05.9 Unspecified nephritic syndrome with unspecified morphologic changes (principal)
CPT/HCPCS: 36415; 80048

== ENCOUNTER 2021-07-06 08:28 | Outpatient (CLI) | payer BC, OTHER ==
[2021-07-06 09:24] VITALS: BP 138/72
--- NOTE | 2021-07-06 09:24 | SLEEP CARE CONSULTATION ---
Information from patient questionnaire entered by Bethany Paulino MA. I have reviewed and concur with the information entered by Bethany Paulino MA. This document represents the service I personally performed and the decisions made by , Kinza Hooks ARNP. History of Present Illness Service Date and Time: 07/06/2021 0828 Previous diagnosis: Severe, Obstructive Sleep Apnea-Hypopnea Syndrome AHI: 41.7 (in 2013)(10.8 in 2010) Reason for follow up: annual (LAST SEEN 03/12, ON CPAP, [facility]) Equipment type: CPAP Equipment obtained from: [facility] (getting supplies as needed) Mask style: Full face Backup mask available: Yes (old mask) Last cushion change: last week Prior sleep studies: Yes Year and Where: 2010 and 2013 - [facility] sleep Type of Sleep Study: Polysomnography HPI additional information: CELIO DIOP was diagnosed to have severe, AHI 41.7, obstructive sleep apnea- hypopnea syndrome and returned today for CPAP therapy annual follow-up. Sleep Study - Results Type of Sleep Study: Polysomnography Prior sleep studies: Yes Year and Where: 2010 and 2013 - [facility] sleep CPAP Compliance Data - Data Reviewed with Patient Average duration of nightly device use: 7 hours 14 minutes Compliance rate %: 99.4 Current pressure setting (cmH2O): 9.0 Average residual AHI: 1.1 Central apnea: 0.0 Obstructive apnea: 0.1 Average large leak: 3 mins 51 secs Subjective Missed days of use due to: reports: family emergency ( ) Patient concerns: denies: aerophagia, mask discomfort, air blowing in eyes, mask leak noise, condensation in mask/hose, nasal congestion, dry mouth, nose, throat , epistaxis, other Observed to snore while using device: No Current pressure setting perceived as: comfortable On therapy, patient: reports: sleeping better, awakening more refreshed, being more awake and alert during the day, more rested overall. denies: drowsiness while driving Initial [place] Sleepiness Scale score: 18 (in 2009) Current [place] Sleepiness Scale score: 7 (06/2021) Allergies and Home Medications Home medication list reviewed: Yes (no changes) Allergy and home medication list: Allergies valsartan [From Diovan] Allergy (Verified 01/26/20 18:07) Unknown codeine [Codeine] Adverse Reaction (Intermediate, Verified 01/26/20 18:07) Anxiety tachycardic, tremors Review of Systems Review of systems same as previous: Yes (no changes) Physical Exam Vital signs obtained and entered by: KILEY SALAS Blood Pressure: 138/72 (RESP 18, PULSE 59, LEFT,) Heart Rate: 60 O2 Saturation: 98 (PAPER) Height: 5 ft 8 in Weight: 320 lb Weight change since last visit: 30 lb gain Body Mass Index: 48.6 BMI Classification: Morbidly Obese Impression and Plan 1. Obstructive Sleep Apnea-Hypopnea Syndrome, severe, with excellent treatment compliance and good apnea control. On CPAP therapy, the patient has better sleep quality and is more rested overall. Patient states his pressure is comfortable and he has no issues with using the CPAP mask. He does have a DreamStation that is registered for the recall. He has not yet heard about them replacing it. He states he cannot go without using his CPAP and has not noticed any changes, debris, and his machine. He denies any upper respiratory irritation when using the device. Patient's apnea severity and rationale for treatment to reduce apnea, improve sleep quality and reduce cardiovascular and cerebrovascular events was reviewed. I also reviewed the benefit of consistent device use of CPAP for hypertension. 2. Obesity, unspecified. Patient has gained weight. His about 2 months ago and he has been dealing with grief. Currently patients BMI is 48.6. Obesity increases the risk of apnea, CPAP pressure requirements and overall health risks especially cardiovascular and diabetes. Thus patient is advised to lose weight. Weight loss can be done with reducing portion size, reducing refined foods and balancing content with vegetables, fruit and whole grain foods. In addition, patient encouraged to get regular exercise. * Continue auto CPAP pressure at 9.0 cmH2O * Notify me if snoring with mask or feeling that the pressure is too much or too little * Attempt to lose weight * Call this office if any problems using CPAP * Return for follow up in 1 year, or sooner if concerns arise Counseling Topics: Spare mask, Weight loss health impact Visit Type: In Office Time Spent with Patient (minutes): 23 Provider Statement: I spent 100% of the Face to Face Visit with the patient with greater than 50% spent counseling the patient and coordination of care.
== END 2021-07-06 08:29 | disposition home or self-care (01) ==
LOC: SC 08:28
PROVIDERS: ATTEND Nurse Practitioner Family
DX: G47.33 Obstructive sleep apnea (adult) (pediatric) (principal); E66.01 Morbid (severe) obesity due to excess calories; Z68.42 Body mass index [BMI] 45.0-49.9, adult
CPT/HCPCS: 99212; 99213

== ENCOUNTER 2021-07-09 06:36 | Outpatient (CLI) | payer BC, OTHER ==
--- NOTE | 2021-07-09 11:41 | Ultrasound Report ---
PROCEDURE: Retroperitoneal INDICATIONS: RENAL MASS TECHNIQUE: Real-time scanning was performed of the kidneys and bladder, with image documentation. COMPARISON: CT 01/25/2020. FINDINGS: Kidneys: Kidneys are normal in size. Right kidney measures 11.4 cm long; left kidney measures 12.5 cm long. Right renal cortical thickness is 1.4 cm; left renal cortical thickness is 1.4 cm. Renal c ortical echotexture is normal. No hydronephrosis or nephrolithiasis. No suspicious solid mass lesio ns. 3.3 x 2.5 x 2.1 cm right renal cysts. Right renal cyst has multiple relatively thick internal sep tations (Bosniak 3). Bladder: Pre-void bladder volume is 92 mL. Post-void residual is 7 mL. Pre-void images demonstrate no intraluminal masses or stones. On pre-void images, both the right and left ureteral jets are not ed with color Doppler interrogation. (Of note, ureteral jets may not be detectable in up to 25% of c ases due to insufficient differences in specific gravity between ureteral and bladder urine). Miscellaneous: No free pelvic fluid. IMPRESSION: 3.3 x 2.5 x 2.1 cm complex right renal cyst (Bosniak 3) which is in the region of previously identifi ed heterogeneously enhancing mass in the superior pole of the right kidney. Lesion has slightly incre ased in size and enhancement since prior CT scan obtained 01/25/2020. Recommend urology consultation. Reviewed by: Roxana Acosta MD, PhD on 07/09/2021 11:39 AM PDT Approved by: Roxana Acosta MD, PhD on 07/09/2021 11:39 AM PDT Station ID: [id number]
== END 2021-07-09 06:37 | disposition home or self-care (01) ==
LOC: DI 06:36
PROVIDERS: ATTEND Physician Assistant Medical
DX: N28.1 Cyst of kidney, acquired (principal)

== ENCOUNTER 2021-10-13 08:48 | Emergency (ER) | payer BC, OTHER ==
[2021-10-13 09:31] LABS: BILIRUBIN,URINE NEGATIVE (NEGATIVE); GLUCOSE, URINE (UA) NEGATIVE (NEGATIVE); KETONES,URINE (UA) NEGATIVE (NEGATIVE); LEUKOCYTE ESTERASE, URINE NEGATIVE (NEGATIVE); NITRITE,URINE NEGATIVE (NEGATIVE); OCCULT BLOOD,URINE NEGATIVE (NEGATIVE); PH,URINE 6.5 PH (5.0-7.5); PROTEIN,URINE >=300 mg/dL (NEGATIVE); UROBILINOGEN,URINE 0.2 (NORMAL) E.U./dL (NORMAL)
[2021-10-13 09:33] LABS: BASOPHILS % (AUTO) 0.6 %; EOSINOPHILS # (AUTO) 0.1 10^3/uL (0.0-0.7); EOSINOPHILS % (AUTO) 2.1 %; HCT - HEMATOCRIT 43.4 % (42.0-52.0); HGB - HEMOGLOBIN 15.4 g/dL (14.0-18.0); LYMPHOCYTES % (AUTO) 16.7 %; MEAN CORPUSCULAR HGB CONC 35.5 g/dL (32.0-36.0); MEAN PLATELET VOLUME 9.9 fL (7.4-11.4); MONOCYTES # (AUTO) 0.4 10^3/uL (0.0-1.0); MONOCYTES % (AUTO) 6.3 %; NEUTROPHILS # (AUTO) 4.6 10^3/uL (1.5-6.6); NEUTROPHILS % (AUTO) 73.7 %; PLT - PLATELET COUNT 131 10^3/uL (130-450); RED BLOOD COUNT 4.82 10^6/uL (4.70-6.10); WHITE BLOOD COUNT 6.2 x10^3/uL (4.8-10.8)
[2021-10-13 09:34] LABS: CLARITY,URINE CLEAR (CLEAR)
[2021-10-13 09:41] LABS: BACTERIA,URINE Rare /HPF (None Seen); RBC,URINE 0-5 /HPF (0-5); SQUAMOUS EPITHELIAL CELL,UR NONE SEEN (<= Few); WBC,URINE 0-3 /HPF (0-3)
[2021-10-13 09:49] LABS: ALBUMIN 4.2 g/dL (3.2-5.5); ALBUMIN/GLOBULIN RATIO 2.1 (1.0-2.2); CALCIUM 8.8 mg/dL (8.5-10.3); CREATININE 1.7 mg/dL (0.6-1.2); POTASSIUM 4.5 mmol/L (3.5-5.0); TOTAL PROTEIN 6.2 g/dL (6.7-8.2)
--- NOTE | 2021-10-13 09:49 | ED Physician Documentation ---
PD HPI BACK PAIN - Stated complaint Stated Complaint: BACK PAIN - Chief complaint Chief Complaint: Back Pain - History obtained from History obtained from: Patient - History of Present Illness Timing - onset: How many days ago (has had pain right low back worse with movement and bending, that has increased the past 4-5 days when just bent over gently. No forceful injury. Has pain right low back radiating down back or right thigh. No weakness nor numbness in legs. No bladder problems.) Timing - duration: Days (worse symptoms), Weeks Timing - details: Gradual onset, Still present, Waxing and waning Location: Lower, Right Quality: Pain, Spasm, Aching. No: Tearing Associated symptoms: No: Fever, Weakness, Numbness, Incontinent of urine Improves with: Rest. No: Meds (Ibuprofen and Tylenol) Worsened by: Movement Contributing factors: Twisting. No: Trauma Similar symptoms before: Diagnosis (low back pains in the past, musculoskeletal.) Recently seen: Clinic (Seen at the walk-in clinic 2 days ago without any prescriptions given. There were going to do try referring him for an MRI. Patient states this is being scheduled. No other treatments provided) Review of Systems Constitutional: denies: Fever, Chills Nose: denies: Rhinorrhea / runny nose, Congestion Throat: denies: Sore throat Respiratory: denies: Cough GI: denies: Abdominal Pain, Nausea, Vomiting, Diarrhea : denies: Dysuria, Unable to Void, Incontinent, Hematuria Skin: denies: Rash, Lesions Neurologic: denies: Focal weakness, Numbness PD PAST MEDICAL HISTORY - Past Medical History Cardiovascular: Hypertension Respiratory: Asthma, Sleep apnea, CPAP use Neuro: None Endocrine/Autoimmune: None GI: GERD, Hiatal hernia OUTPATIENT SURGERY RN: None : Nocturia HEENT: Chronic vision loss, Chronic sinusitis Psych: Anxiety, Eating disorder Musculoskeletal: Osteoarthritis Derm: None - Past Surgical History Past Surgical History: Yes General: Appendectomy, Hiatal hernia repair - Present Medications Home Medications: Ambulatory Orders Medication Instructions Recorded Confirmed Furosemide [Lasix] 60 mg PO DAILY 03/23/15 06/05/19 Fluticasone/Salmeterol [Advair 1 puffs INH BID 05/17/17 06/05/19 250-50 Diskus] amLODIPine [Norvasc] 5 mg PO DAILY 05/17/17 06/05/19 Benzonatate [Tessalon Perle] 100 - 200 mg PO TID PRN #20 capsule 05/19/19 Benzonatate [Tessalon Perle] 100 mg PO BID #10 capsule 06/05/19 Meloxicam 15 mg PO DAILY PRN #20 tablet 11/13/19 Benzonatate [Tessalon] 100 mg PO TID PRN #30 capsule 01/26/20 Acetaminophen [Acetaminophen Extra 500 mg PO QID PRN #40 tablet 10/13/21 Strength] dexAMETHasone [Decadron] 4 mg PO DAILY #5 tablet 10/13/21 methocarbamoL [Robaxin] 500 mg PO Q6H PRN #30 tablet 10/13/21 oxyCODONE [Roxicodone] 5 mg PO Q6H PRN #20 tablet 10/13/21 - Allergies Allergies/Adverse Reactions: Allergies Allergy/AdvReac Type Severity Reaction Status Date / Time valsartan [From Diovan] Allergy Unknown Verified 10/13/21 09:03 codeine [Codeine] AdvReac Intermediate Anxiety Verified 10/13/21 09:03 - Social History Does the pt smoke?: No Smoking Status: Never smoker Does the pt drink ETOH?: Yes Does the pt have substance abuse?: No - Immunizations Immunizations are current?: Yes - POLST Patient has POLST: No POLST Status: Full Code PD ED PE NORMAL - Vitals Vital signs reviewed: Yes - General General: Alert and oriented X 3, Well developed/nourished, Other (Sitting on cart with guarding range of motion of the low back. Hurts for sitting forward.) - Cardiac Cardiac: RRR, No murmur - Respiratory Respiratory: Clear bilaterally - Abdomen Abdomen: Soft, Non tender - Male Male : Deferred - Rectal Rectal: Deferred - Back Back: No CVA TTP, No spinal TTP (Tender mostly in the right lower lumbar area just above the iliac crest. No rash or sores.) - Derm Derm: Normal color, Warm and dry, No rash - Neuro Neuro: Alert and oriented X 3, No motor deficit, No sensory deficit, Other (normal patellar reflexes. ) Eye Opening: Spontaneous Motor: Obeys Commands Verbal: Oriented GCS Score: 15 Results - Vitals Vitals: Vital Signs - 24 hr 10/13/21 10/13/21 08:58 10:35 Temperature 36.2 C L Heart Rate 58 L 76 Respiratory 16 17 Rate Blood Pressure 172/99 H 137/87 H O2 Saturation 100 98 Oxygen O2 Source Room air - Labs Labs: Laboratory Tests 10/13/21 10/13/21 10/13/21 09:25 09:25 09:25 WBC 6.2 RBC 4.82 Hgb 15.4 Hct 43.4 MCV 90.0 MCH 32.0 H MCHC 35.5 RDW 14.0 Plt Count 131 MPV 9.9 Neut # (Auto) 4.6 Lymph # (Auto) 1.0 L [place] # (Auto) 0.4 Eos # (Auto) 0.1 Baso # (Auto) 0.0 Absolute Nucleated RBC 0.00 Nucleated RBC % 0.0 Sodium 141 Potassium 4.5 Chloride 107 Carbon Dioxide 26 Anion Gap 8.0 BUN 25 H Creatinine 1.7 H Estimated GFR (MDRD) 41 L Glucose 95 Calcium 8.8 Total Bilirubin 1.0 AST 20 ALT 25 Alkaline Phosphatase 60 Total Protein 6.2 L Albumin 4.2 Globulin 2.0 L Albumin/Globulin Ratio 2.1 Lipase 34 Urine Color YELLOW Urine Clarity CLEAR Urine pH 6.5 Ur Specific [place] 1.025 Urine Protein >=300 H Urine Glucose (UA) NEGATIVE Urine Ketones NEGATIVE Urine Occult Blood NEGATIVE Urine Nitrite NEGATIVE Urine Bilirubin NEGATIVE Urine Urobilinogen 0.2 (NORMAL) Ur Leukocyte Esterase NEGATIVE Urine RBC 0-5 Urine WBC 0-3 Ur Squamous Epith Cells NONE SEEN Urine Bacteria Rare Ur Microscopic Review INDICATED Urine Culture Comments NOT INDICATED PD MEDICAL DECISION MAKING - ED course Complexity details: reviewed results (He does have some renal insufficiency with elevated creatinine 1.7. Prior creatinines have been similar or worse. As such I would avoid NSAIDs or minimize. Can go with steroids and muscle relaxants and pain pills instead.), considered differential (Low back pain with increased on motion and bending. No neurologic deficits. Does have radiating pain. Walk-in clinic was arranging MRI for the back. No red flags otherwise to suggest need for testing or CT scan. Shared decision with the patient was to treat with medications and not do CT scan.), d/w patient Departure - Departure Disposition: 01 Home, Self Care Clinical Impression: Acute back pain Qualifiers: Back pain location: low back pain Back pain laterality: right Sciatica presence: without sciatica Qualified Code(s): M54.50 - Low back pain, unspecified Condition: Stable Record reviewed to determine appropriate education?: Yes Instructions: ED Low Back Pain Injury Follow-Up: Glenis Lord PA-C [Primary Care Provider] - Prescriptions: Acetaminophen [Acetaminophen Extra Strength] 500 mg PO QID PRN #40 tablet PRN Reason: Pain dexAMETHasone [Decadron] 4 mg PO DAILY #5 tablet methocarbamoL [Robaxin] 500 mg PO Q6H PRN #30 tablet PRN Reason: Spasms oxyCODONE [Roxicodone] 5 mg PO Q6H PRN #20 tablet PRN Reason: Pain Comments: This sounds like musculoskeletal back pain. Your urine test is clear. Blood count and white count are normal. Your kidney function is slightly abnormal and has been that way over time. As such though I would think of going smaller amounts or minimal on the NSAIDs. We can use a steroid anti-inflammatory daily for 5 more days in combination with muscle relaxant and Tylenol. This would be better on your kidney function. To that add oxycodone every 6 hours if needed for worse pain. Follow-up with your primary care or the walk-in if not improving well over the next several days. I transmitted your prescriptions to [facility] in [place]. I am prescribing a short course of narcotic pain medication for you. These are potentially dangerous and addictive medications that should be used carefully. These medications may constipate you. Take an mame-hcp-[id number] stool softener such as docusate twice daily with plenty of water while taking these medications. If you go 24 hours without a bowel movement, take pnmg-eqs-upieeng MiraLAX, per package instructions. Do not drink or drive while taking these medications. If you received narcotic or sedating medications while in the emergency department do not drive for 24 hours. Store this medication in a safe, secure place and out of reach of children. It is a violation of federal law to give or sell this medication to another person or to use in a manner other than prescribed. The ED will not refill narcotic prescriptions, including prescriptions lost or stolen. You can dispose of unwanted medications at the [facility]'s office or at several pharmacies such as [facility]. Discharge Date/Time: 10/13/21 10:36
[2021-10-13] MEDS ORDERED: ACETAMINOPHEN 325 MG TABLET PO STA (10:16)
[2021-10-13] MEDS ORDERED: methocarbamoL 500 MG TABLET PO STA (10:16)
[2021-10-13] MEDS ORDERED: KETOROLAC 15 MG/ML VIAL IVP STA (10:16)
[2021-10-13] MEDS ORDERED: DEXAMETHASONE 10 MG/ML VIAL IVP STA (10:17)
[2021-10-13 10:36] VITALS: BP 137/87
== END 2021-10-13 10:36 | disposition home or self-care (01) ==
LOC: ED 08:48
DX: M54.50 Low back pain, unspecified (principal); N28.9 Disorder of kidney and ureter, unspecified; J45.909 Unspecified asthma, uncomplicated; G47.30 Sleep apnea, unspecified
CPT/HCPCS: 36415; 80053; 81001; 83690; 85025; 96374; 99282; 99284; A9270; 81003; 87086

== ENCOUNTER 2021-10-18 18:33 | Outpatient (CLI) | payer BC, OTHER ==
--- NOTE | 2021-10-19 09:59 | CT Report ---
PROCEDURE: ABDOMEN W/WO INDICATIONS: RENAL MASS TECHNIQUE: After the administration of contrast, 5 mm thick sections acquired from the diaphragms to the sym physis. 5 mm thick coronal and sagittal reformats were acquired. For radiation dose reduction, the following was used: automated exposure control, adjustment of mA and/or kV according to patient size . COMPARISON: 01/25/2020 FINDINGS: Image quality: Excellent. ABDOMEN: Lung bases: Lung bases are clear. Heart size is normal. Solid organs: Liver: The liver has no mass or intrahepatic biliary ductal dilatation. Biliary: The gallbladder has no gallstones, pericholecystic fluid, gallbladder wall thickening, or pollack rrounding inflammatory change. Pancreas: The pancreas has no mass or ductal dilatation. No surrounding inflammation. Spleen: The spleen appears enlarged. Adrenal glands: No hypertrophy or nodules. Kidneys: No obstructive calculus or hydronephrosis. A right renal mass measures 3.2 cm, unchanged in size compared to the prior CT on 01/25/2020. The mass is hyperdense on noncontrast imaging measuring 3 8 Hounsfield units and there is mild homogenous enhancement on arterial phase measuring 50 Hounsfield units. The mass is hyperdense to the adjacent renal parenchyma prior to contrast and demonstrates no signifi cant increase in contrast during the arterial phase and then is hypodense compared to renal parenchym a on delayed images. No cystic mass. Bowel: The distal esophagus and stomach are normal. The visualized small bowel has a normal caliber and appearance. The visualized large bowel has a normal caliber and appearance. Free air/free fluid: No free air or free fluid. Abdominal wall: No abdominal wall mass or hernia. Retroperitoneum: No retroperitoneal or mesenteric adenopathy by size criteria. Aorta and inferior ve na cava are normal in size. Lymph nodes: No adenopathy. Bones: No suspicious bony lesions. No vertebral body compression fractures. PELVIS: Genitourinary: Bladder wall thickness is normal. Miscellaneous: No inguinal hernias or adenopathy. Bones: No suspicious bony lesions. No vertebral body compression fractures. IMPRESSION: Right renal mass is unchanged in size measuring 3.2 cm. The mass demonstrates minimal, i f any arterial enhancement. The mass is stable compared to 01/25/2020. On ultrasound the mass is demon strated to be a cyst with a thick internal septation (Bosniak 3) Reviewed by: Nikolas Wilkinson on 10/19/2021 9:57 AM PDT Approved by: Nikolas Wilkinson on 10/19/2021 9:57 AM PDT Station ID: [id number]
== END 2021-10-18 18:34 | disposition home or self-care (01) ==
LOC: DI 18:33
PROVIDERS: ATTEND Nurse Practitioner
DX: N28.1 Cyst of kidney, acquired (principal)
CPT/HCPCS: 74170; Q9967

== ENCOUNTER 2022-01-16 09:17 | Outpatient (CLI) | payer BC, OTHER ==
[2022-01-16 11:55] LABS: BASOPHILS # (AUTO) 0.1 10^3/uL (0.0-0.1); BASOPHILS % (AUTO) 0.7 %; EOSINOPHILS # (AUTO) 0.2 10^3/uL (0.0-0.7); EOSINOPHILS % (AUTO) 2.9 %; HCT - HEMATOCRIT 41.5 % (42.0-52.0); HGB - HEMOGLOBIN 14.5 g/dL (14.0-18.0); LYMPHOCYTES # (AUTO) 1.1 10^3/uL (1.5-3.5); LYMPHOCYTES % (AUTO) 13.6 %; MEAN CORPUSCULAR HEMOGLOBIN 31.5 pg (27.0-31.0); MEAN CORPUSCULAR HGB CONC 34.9 g/dL (32.0-36.0); MEAN PLATELET VOLUME 9.8 fL (7.4-11.4); MONOCYTES # (AUTO) 0.5 10^3/uL (0.0-1.0); MONOCYTES % (AUTO) 6.3 %; NEUTROPHILS # (AUTO) 6.3 10^3/uL (1.5-6.6); NEUTROPHILS % (AUTO) 74.8 %; PLT - PLATELET COUNT 153 10^3/uL (130-450); RED BLOOD COUNT 4.61 10^6/uL (4.70-6.10); RED CELL DISTRIBUTION WIDTH 13.7 % (12.0-15.0); WHITE BLOOD COUNT 8.4 x10^3/uL (4.8-10.8)
[2022-01-16 12:17] LABS: CALCIUM 9.4 mg/dL (8.5-10.3); CREATININE 1.9 mg/dL (0.6-1.2); PHOSPHORUS 4.7 mg/dL (2.5-4.6); POTASSIUM 4.7 mmol/L (3.5-5.0); URIC ACID 5.9 mg/dL (2.6-7.2)
[2022-01-16 12:38] LABS: CREATININE,URINE 105.9 mg/dL; PROTEIN/CREATININE RATIO,URINE 4.4 (<=0.2)
== END 2022-01-16 09:18 | disposition home or self-care (01) ==
LOC: LAB.N 09:17
PROVIDERS: ATTEND Internal Medicine Nephrology
DX: N05.9 Unspecified nephritic syndrome with unspecified morphologic changes (principal); I50.32 Chronic diastolic (congestive) heart failure; D70.9 Neutropenia, unspecified; D63.1 Anemia in chronic kidney disease; E83.30 Disorder of phosphorus metabolism, unspecified; N25.81 Secondary hyperparathyroidism of renal origin; M10.00 Idiopathic gout, unspecified site; R80.9 Proteinuria, unspecified
CPT/HCPCS: 36415; 80048; 82570; 83880; 83970; 84100; 84156; 84550; 85025

== ENCOUNTER 2022-04-01 08:00 | Outpatient (CLI) | payer BC, OTHER ==
[2022-04-01 13:21] LABS: INFLUENZA A- RESP PCR PANEL NOT DETECTED; INFLUENZA B - RESP PCR PANEL NOT DETECTED; RSV- RESP PCR PANEL NOT DETECTED; SARS-CoV-2 -RESP PCR PANEL NOT DETECTED
== END 2022-04-01 23:59 | disposition home or self-care (01) ==
LOC: LAB.R 08:00
PROVIDERS: ATTEND Physician Assistant Medical
DX: J06.9 Acute upper respiratory infection, unspecified (principal); Z20.822 Contact with and (suspected) exposure to COVID-19
CPT/HCPCS: 87637

== ENCOUNTER 2022-04-01 10:04 | Outpatient (CLI) | payer BC, OTHER ==
--- NOTE | 2022-04-01 15:20 | XRAY Report ---
PROCEDURE: Chest 2 View X-Ray INDICATIONS: ACUTE UPPER RESPIRATORY INFECTION TECHNIQUE: 2 views of the chest were acquired. COMPARISON: 03/22/2021 FINDINGS: Surgical changes and devices: None. Lungs and pleura: No pleural effusions or pneumothorax. Lungs are clear. Mediastinum: Mediastinal contours are normal. Heart size is normal. Bones and chest wall: No suspicious bony abnormalities. Soft tissues appear unremarkable. IMPRESSION: No acute process. Reviewed by: Madelin Altamirano MD on 04/01/2022 3:19 PM PST Approved by: Madelin Altamirano MD on 04/01/2022 3:19 PM PST Station ID: [id number]
== END 2022-04-01 10:05 | disposition home or self-care (01) ==
LOC: DI 10:04
PROVIDERS: ATTEND Physician Assistant Medical
DX: J06.9 Acute upper respiratory infection, unspecified (principal); Z20.822 Contact with and (suspected) exposure to COVID-19
CPT/HCPCS: 87637

== ENCOUNTER 2022-05-31 09:11 | Outpatient (CLI) | payer BC, OTHER ==
[2022-05-31 11:53] LABS: BASOPHILS % (AUTO) 0.6 %; EOSINOPHILS # (AUTO) 0.1 10^3/uL (0.0-0.7); EOSINOPHILS % (AUTO) 1.7 %; HCT - HEMATOCRIT 38.8 % (42.0-52.0); HGB - HEMOGLOBIN 13.4 g/dL (14.0-18.0); LYMPHOCYTES % (AUTO) 13.9 %; MEAN CORPUSCULAR HGB CONC 34.5 g/dL (32.0-36.0); MEAN CORPUSCULAR VOLUME 92.6 fL (80.0-94.0); MEAN PLATELET VOLUME 10.4 fL (7.4-11.4); MONOCYTES # (AUTO) 0.5 10^3/uL (0.0-1.0); MONOCYTES % (AUTO) 7.8 %; NEUTROPHILS # (AUTO) 5.1 10^3/uL (1.5-6.6); PLT - PLATELET COUNT 134 10^3/uL (130-450); RED BLOOD COUNT 4.19 10^6/uL (4.70-6.10); RED CELL DISTRIBUTION WIDTH 13.4 % (12.0-15.0); WHITE BLOOD COUNT 6.9 x10^3/uL (4.8-10.8)
[2022-05-31 12:15] LABS: ALBUMIN/GLOBULIN RATIO 1.7 (1.0-2.2); ALKALINE PHOSPHATASE 64 IU/L (42-121); ALT ALANINE AMINOTRANSFERASE 31 IU/L (10-60); AST ASPARTATE AMINOTRANSFERASE 21 IU/L (10-42); BILIRUBIN,TOTAL 0.9 mg/dL (0.2-1.0); BUN - BLOOD UREA NITROGEN 29 mg/dL (6-20); CALCIUM 9.1 mg/dL (8.5-10.3); CARBON DIOXIDE - CO2 23 mmol/L (21-32); CHLORIDE 114 mmol/L (101-111); CHOL/HDL RATIO 3.6 (<5.0); CHOLESTEROL 147 mg/dL; CREATININE 2.4 mg/dL (0.6-1.2); GFR - MDRD 28 (>89); GLUCOSE 112 mg/dL (70-100); HDL CHOLESTEROL 41 mg/dL; LDL CHOLESTEROL,CALCULATED 90 mg/dL; LDL/HDL RATIO 2.2 (<3.6); POTASSIUM 4.8 mmol/L (3.5-5.0); SODIUM 143 mmol/L (135-145); TOTAL PROTEIN 6.3 g/dL (6.7-8.2); TRIGLYCERIDES 81 mg/dL; VLDL CHOLESTEROL 16 mg/dL
== END 2022-05-31 09:12 | disposition home or self-care (01) ==
LOC: LAB.N 09:11
PROVIDERS: ATTEND Physician Assistant Medical
DX: I10 Essential (primary) hypertension (principal); E78.5 Hyperlipidemia, unspecified
CPT/HCPCS: 36415; 80053; 80061; 83721; 85025

== ENCOUNTER 2022-07-10 08:16 | Outpatient (CLI) | payer BC, OTHER ==
[2022-07-10 08:50] VITALS: BP 126/78
--- NOTE | 2022-07-10 08:50 | SLEEP CARE CONSULTATION ---
Information from patient questionnaire entered by Yazan Hurley. I have reviewed and concur with the information entered by Yazan Hurley. This document represents the service I personally performed and the decisions made by me, Kinza Hooks ARNP. History of Present Illness Service Date and Time: 07/10/2022 0816 Previous diagnosis: Severe, Obstructive Sleep Apnea-Hypopnea Syndrome AHI: 41.7 (in 2013)(10.8 in 2010) Reason for follow up: annual (LAST SEEN 06/2021) Equipment type: CPAP (BLUE Dreamstation, recertified) Equipment obtained from: [employer] (getting supplies as needed) Mask style: Full face Backup mask available: Yes (old mask) Last cushion change: last week Prior sleep studies: Yes Year and Where: 2010 and 2013 - [facility] sleep Type of Sleep Study: Polysomnography HPI additional information: CELIO DIOP was diagnosed to have severe, AHI 41.7, obstructive sleep apnea- hypopnea syndrome and returned today for CPAP therapy annual follow-up. Sleep Study - Results Type of Sleep Study: Polysomnography Prior sleep studies: Yes Year and Where: 2010 and 2013 - [facility] sleep CPAP Compliance Data - Data Reviewed with Patient Average duration of nightly device use: 6 HRS 26 MINS 14SECS Compliance rate %: 95 (01/09/22-07/07/22; 179/180 days used) Current pressure setting (cmH2O): 9 Average residual AHI: 0.6 Subjective Missed days of use due to: reports: other (father ) Patient concerns: denies: aerophagia, mask discomfort, air blowing in eyes, mask leak noise, condensation in mask/hose, nasal congestion, dry mouth, nose, throat, epistaxis Observed to snore while using device: No Current pressure setting perceived as: comfortable On therapy, patient: reports: sleeping better, awakening more refreshed, being more awake and alert during the day, more rested overall. denies: drowsiness while driving Initial [place] Sleepiness Scale score: 18 (in 2009) Current [place] Sleepiness Scale score: 8 (07/10/22) Allergies and Home Medications Known drug allergies: Yes (as listed) Drug allergies reviewed: Yes Home medication list reviewed: Yes (new BP meds, can't remember name) Allergy and home medication list: Allergies valsartan [From Diovan] Allergy (Verified 07/09/22 13:32) Unknown codeine [Codeine] Adverse Reaction (Intermediate, Verified 07/09/22 13:32) Anxiety tachycardic, tremors Review of Systems Review of systems same as previous: Yes (no changes) Physical Exam Vital signs obtained and entered by: YAZAN Su MA Blood Pressure: 126/78 (LEFT ARM) Cuff size: regular Heart Rate: 64 O2 Saturation: 97 Height: 5 ft 8 in Weight: 358 lb 6.4 oz Weight change since last visit: 38 lbs gained Body Mass Index: 54.5 BMI Classification: Morbidly Obese Impression and Plan 1. Obstructive Sleep Apnea-Hypopnea Syndrome, severe, with good treatment compliance and good apnea control. On CPAP therapy, the patient has better sleep quality and is more rested overall. Patient has been doing well despite having a rough year. His about a year ago and his father 2 months later. He has not been getting out of the house as much and has gained weight this year. Patient has significant improvement of their sleep apnea and is satisfied with current CPAP therapy. Patient denies problems with oral dryness, nasal congestion, epistaxis, skin irritation or aerophagia. I will follow-up with him next year. Patient's apnea severity and rationale for treatment to reduce apnea, improve sleep quality and reduce cardiovascular and cerebrovascular events was reviewed. I also reviewed the benefit of consistent device use of CPAP for hypertension. 2. Obesity, unspecified. Currently patients BMI is 54.5. Patient has gained 28 pounds of weight this year. He was encouraged to increase activity to help him to start losing weight. Obesity increases the risk of apnea, CPAP pressure requirements and overall health risks especially cardiovascular and diabetes. Thus patient is advised to lose weight. * Continue CPAP pressure at 9 cmH2O * Update supplies * Notify me if snoring with mask or feeling that the pressure is too much or too little * Attempt to lose weight * Call this office if any problems using CPAP * Return for follow up in 1 year, or sooner if concerns arise Counseling Topics: Spare mask, Weight loss health impact, Activity level Visit Type: In Office Time Spent with Patient (minutes): 20 Provider Statement: I spent 100% of the Face to Face Visit with the patient with greater than 50% spent counseling the patient and coordination of care.
== END 2022-07-10 08:17 | disposition home or self-care (01) ==
LOC: SC 08:16
PROVIDERS: ATTEND Nurse Practitioner Family
DX: G47.33 Obstructive sleep apnea (adult) (pediatric) (principal); E66.01 Morbid (severe) obesity due to excess calories; Z68.43 Body mass index [BMI] 50.0-59.9, adult
CPT/HCPCS: 99212; 99213

== ENCOUNTER 2022-08-04 04:20 | Emergency (ER) | payer BC, OTHER ==
--- NOTE | 2022-08-04 04:27 | ED Physician Documentation ---
PD HPI URI - Stated complaint Stated Complaint: C+ - History obtained from History obtained from: Patient - History of Present Illness Timing - onset: How many days ago (2) Timing duration: Days (2) Timing details: Abrupt onset, Still present Associated symptoms: Chills, Nasal congestion, Rhinorrhea, Dry cough, Dyspnea (with wheezing). No: Hemoptysis, Chest pain Contributing factors: COPD / asthma (intermittent asthma with prior URIs and was on Flovent for awhile in past, but not ongoing Rx.). No: Sick contact Improves by: No: Medication (cough med. He does not have inhalers at home.) Worsened by: Activity Recently seen: Not recently seen Review of Systems Constitutional: reports: Chills, Myalgias. denies: Fever Nose: reports: Rhinorrhea / runny nose, Congestion Throat: reports: Sore throat Cardiac: denies: Chest pain / pressure, Palpitations, Pedal edema, Calf pain Respiratory: reports: Dyspnea, Cough, Wheezing GI: denies: Vomiting, Diarrhea Skin: denies: Rash Neurologic: reports: Generalized weakness (just the past 2 days) PD PAST MEDICAL HISTORY - Past Medical History Cardiovascular: Hypertension Respiratory: Asthma, Sleep apnea, CPAP use Neuro: None Endocrine/Autoimmune: None GI: GERD, Hiatal hernia [employer]: None : Nocturia HEENT: Chronic vision loss, Chronic sinusitis Psych: Anxiety, Eating disorder Musculoskeletal: Osteoarthritis Derm: None - Past Surgical History Past Surgical History: Yes General: Appendectomy, Hiatal hernia repair - Present Medications Home Medications: Ambulatory Orders Medication Instructions Recorded Confirmed Furosemide [Lasix] 60 mg PO DAILY 03/23/15 07/10/22 Fluticasone/Salmeterol [Advair 1 puffs INH BID 05/17/17 07/10/22 250-50 Diskus] amLODIPine [Norvasc] 5 mg PO DAILY 05/17/17 07/10/22 Benzonatate [Tessalon Perle] 100 - 200 mg PO TID PRN #20 capsule 05/19/19 07/10/22 Benzonatate [Tessalon Perle] 100 mg PO BID #10 capsule 06/05/19 07/10/22 Meloxicam 15 mg PO DAILY PRN #20 tablet 11/13/19 07/10/22 Benzonatate [Tessalon] 100 mg PO TID PRN #30 capsule 01/26/20 07/10/22 Acetaminophen [Acetaminophen Extra 500 mg PO QID PRN #40 tablet 10/13/21 07/10/22 Strength] dexAMETHasone [Decadron] 4 mg PO DAILY #5 tablet 10/13/21 07/10/22 methocarbamoL [Robaxin] 500 mg PO Q6H PRN #30 tablet 10/13/21 07/10/22 oxyCODONE [Roxicodone] 5 mg PO Q6H PRN #20 tablet 10/13/21 07/10/22 Albuterol Sulf [Ventolin Hfa 2 - 3 puffs INH QID 10 Days #1 each 08/04/22 Inhaler] dexAMETHasone [Decadron] 4 mg PO DAILY #5 tablet 08/04/22 - Allergies Allergies/Adverse Reactions: Allergies Allergy/AdvReac Type Severity Reaction Status Date / Time valsartan [From Diovan] Allergy Unknown Verified 07/10/22 08:28 codeine [Codeine] AdvReac Intermediate Anxiety Verified 07/10/22 08:28 - Social History Does the pt smoke?: No Smoking Status: Never smoker Does the pt drink ETOH?: Yes Does the pt have substance abuse?: No - Immunizations Immunizations are current?: Yes - POLST Patient has POLST: No POLST Status: Full Code PD ED PE NORMAL - Vitals Vital signs reviewed: Yes (sats are good) - General General: Alert and oriented X 3, No acute distress (but is slightly anxious about being sick. ), Well developed/nourished - HEENT HEENT: Pharynx benign - Neck Neck: Supple, no meningeal sign, No adenopathy - Cardiac Cardiac: RRR, No murmur - Respiratory Respiratory: No respiratory distress. No: Clear bilaterally (he has diffuse mild expiratory wheezing. ) Results - Vitals Vitals: Vital Signs - 24 hr 08/04/22 08/04/22 08/04/22 04:29 05:10 05:11 Temperature 36.6 C Heart Rate 92 90 89 Respiratory 20 18 18 Rate Blood Pressure 158/99 H 167/90 H O2 Saturation 96 97 Oxygen O2 Source Room air PD Medical Decision Making - ED course Complexity details: re-evaluated patient (he feels improved breathing with MDI by RT. ), considered differential (URI symptoms for 2 days and positive home COVID test. Underlying history of asthma. He does not currently have an albuterol inhaler. He requests Paxlovid. No obvious contradictory medications.), d/w patient Departure - Departure Disposition: 01 Home, Self Care Clinical Impression: COVID-19, Wheezing Upper respiratory infection Qualifiers: URI type: unspecified URI Qualified Code(s): J06.9 - Acute upper respiratory infection, unspecified Condition: Stable Record reviewed to determine appropriate education?: Yes Prescriptions: dexAMETHasone [Decadron] 4 mg PO DAILY #5 tablet Albuterol Sulf [Ventolin Hfa Inhaler] 2 - 3 puffs INH QID 10 Days #1 each Comments: Take the Paxlovid antiviral combination medications twice daily for 5 days as per the package directions. You do have wheezing and we can use an albuterol inhaler 2 to 3 puffs 4 times daily for the next several days to a week or more to help with those symptoms. Decadron steroid can be helpful for reducing airway inflammation in the setting of wheezing. Take this for several days as prescribed. Stay well-hydrated. Continue your other usual medications. Off work. Your workplace policy, which is commonly 5 to 7 days. You would not want to be returning to work while still ill and infectious which is typically signified by still having fevers body aches and significant symptoms. Tylenol every 4-6 hours if needed for fevers or pains. Recheck if worsening symptoms and trouble breathing. I sent a prescription to [facility] in [place]. Forms: Activity restrictions Discharge Date/Time: 08/04/22 05:11
[2022-08-04] MEDS ORDERED: CHERRY SYRUP 10 ML UDC PO ONE (04:43)
[2022-08-04] MEDS ORDERED: ACETAMINOPHEN 325 MG TABLET PO STA (04:43)
[2022-08-04] MEDS ORDERED: DEXAMETHASONE 10 MG/ML VIAL PO STA (04:43)
[2022-08-04] MEDS ORDERED: ALBUTEROL 1 PUFF INH STA (04:43)
[2022-08-04] MEDS ORDERED: NIRMATRELVIR/RITONAVIR PREPACK PO STA (04:43)
[2022-08-04 05:11] VITALS: BP 167/90
== END 2022-08-04 05:11 | disposition home or self-care (01) ==
LOC: ED 04:20
DX: U07.1 COVID-19 (principal); J06.9 Acute upper respiratory infection, unspecified; I10 Essential (primary) hypertension; Z79.899 Other long term (current) drug therapy; Z79.51 Long term (current) use of inhaled steroids
CPT/HCPCS: 94640; 94664; 99283; 99284; A9270; J3490

== ENCOUNTER 2022-09-02 08:03 | Outpatient (CLI) | payer BC, OTHER ==
[2022-09-02 12:41] LABS: ALBUMIN/GLOBULIN RATIO 1.6 (1.0-2.2); ALKALINE PHOSPHATASE 63 IU/L (42-121); ALT ALANINE AMINOTRANSFERASE 28 IU/L (10-60); AST ASPARTATE AMINOTRANSFERASE 20 IU/L (10-42); BUN - BLOOD UREA NITROGEN 30 mg/dL (6-20); CALCIUM 8.8 mg/dL (8.5-10.3); CARBON DIOXIDE - CO2 25 mmol/L (21-32); CHLORIDE 114 mmol/L (101-111); CHOLESTEROL 159 mg/dL; CREATININE 2.1 mg/dL (0.6-1.2); GFR - MDRD 32 (>89); GLUCOSE 108 mg/dL (70-100); HDL CHOLESTEROL 40 mg/dL; LDL CHOLESTEROL,CALCULATED 100 mg/dL; LDL/HDL RATIO 2.5 (<3.6); POTASSIUM 5.1 mmol/L (3.5-5.0); SODIUM 142 mmol/L (135-145); TOTAL PROTEIN 6.5 g/dL (6.7-8.2); TRIGLYCERIDES 95 mg/dL; URIC ACID 5.8 mg/dL (2.6-7.2); VLDL CHOLESTEROL 19 mg/dL
[2022-09-02 13:45] LABS: CREATININE,URINE 66.3 mg/dL; PROTEIN/CREATININE RATIO,URINE 2.2 (<=0.2)
== END 2022-09-02 08:04 | disposition home or self-care (01) ==
LOC: LAB.N 08:03
PROVIDERS: ATTEND Internal Medicine Nephrology
DX: E78.5 Hyperlipidemia, unspecified (principal); N05.9 Unspecified nephritic syndrome with unspecified morphologic changes; M10.00 Idiopathic gout, unspecified site; R80.9 Proteinuria, unspecified
CPT/HCPCS: 36415; 80048; 80053; 80061; 82570; 83721; 84156; 84550